=== PATIENT | female | born 1990 | race Caucasian/White ===

== ENCOUNTER 2020-01-30 09:57 | Emergency (ER) | payer OTHER, SELFPAY ==
[2020-01-30 10:09] VITALS: BP 108/61; BP 120/80; PULSE 69; PULSE 85; RESP 16; TEMP 36.6; O2SAT 98; O2SAT 99; BMI 32.8
--- NOTE | 2020-01-30 10:21 | ED_ITS ---
HPI - Extremity Problem General Chief complaint: Extremity Injury, Upper Stated complaint: arm pain Time Seen by Provider: 01/30/20 10:21 Source: patient Mode of arrival: ambulatory Limitations: no limitations History of Present Illness HPI Narrative: 29 y/o female with no medical history presents with right upper arm pain since last night along with intermittent tingling and numbness. She reports falling on her left side about 1 week ago but denies injury to her right arm. She states she was not doing anything in particular when she started to have pain in her upper arm from the middle down to the elbow area. She is able to flex and extend her arm but it is painful to do so. 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 MD Complaint: extremity pain Onset (ago): day(s) (1) Pain Consistency: constant Location: right Severity scale (1-10): 8 Quality: aching Radiation: distal Relieving factors: immobilization and rest Exacerbating factors: range of motion and palpation Associated symptoms: denies other symptoms Related Data Previous Rx's Medication Instructions Recorded ibuprofen 600 mg PO Q8H PRN #30 tab 01/30/20 lidocaine [Lidoderm] 1 patch TOPICAL DAILY #15 ea 01/30/20 Allergies Allergy/AdvReac Type Severity Reaction Status Date / Time methylphenidate Allergy Unknown Swelling Unverified 01/30/20 10:08 [From CONCERTA] nickel [NICKEL] Allergy Unknown HIVES Unverified 11/08/19 19:43 ibuprofen AdvReac Rash Verified 01/30/20 10:08 Review of Systems Review of Systems: Constitutional: No Fever, No Chills Cardiovascular: No Chest Pain, + SOB (when anxious) Respiratory: No Cough, No Sputum Gastrointestinal: No Nausea, No Vomiting Musculoskeletal: + joint pain, + Myalgias Skin: No Skin Lesions, No rash Neuro: + Weakness (due to pain), + Numbness, No Dizziness, No Headache Psych: + Anxiety/Panic Heme/Lymph: No Bruising, No Lymphadenopathy PMFSH Past Medical History Attestation statement: The following information was validated with the patient. Medical History delivery delivered Social History Social History Advance Directives: No Advance Directives Information Provided: No Physical Exam Vital Signs: Vital Signs: Last Vital Signs Temp 97.9 F 01/30/20 10:09 Pulse 69 01/30/20 10:09 Resp 16 01/30/20 10:09 BP 108/61 01/30/20 10:09 Pulse Ox 98 01/30/20 10:09 Body Mass Index 32.8 Appearance: Alert. Oriented X3. No acute distress. HEENT: normal inspection CVS: Normal heart rate and rhythm. Pulses normal. Respiratory: No respiratory distress. Skin: Skin warm and dry. Normal skin color. Normal skin turgor. No rashes. Extremities: right upper extremity with mild swelling of volar side of lower upper arm, normal right shoulder exam, full ROM of elbow with painful flexion and extension, tender bicep insertion site with palpable fullness, no bony tenderness, no deformity. Neuro: Oriented X 3. No motor deficit. No sensory deficit. Course Course Course Narrative: 29 y/o female with right upper arm pain x1 day s/p fall 1 week ago. Tender bicep, question bicep tendonitis. Doubt rupture given she has ROM. Given trauma will check XR's to assess for occult fracture Reevaluation(s) Reevaluation #1: XR negative. Will treat for bicep tendonitis with oral NSAIDS, cold compresses. No role for glucocorticoid injections at this time. She will f/u with Orthopedics if no improvement in 1 week. Stable for discharge. Critical Care Time Critical Care Time Critical Care Time: No Discharge Plan Discharge Clinical Impression: Biceps tendinitis Qualifiers: Laterality: right Qualified Code(s): M75.21 - Bicipital tendinitis, right shoulder Patient Disposition: Home, Self-Care Instructions: Tendinitis (ED) Additional Instructions: Your X-rays today were normal. Your exam and history are consistent with overuse injury known as tendonitis. It is important that you limit use of your elbow so it can rest and heal. Take the prescribed anti-inflammatory medication for the next 1 week. Use ice several times per day. If no improvement in 1 week follow up with Orthopedics. If worsening pain, if you are unable to flex or extend your elbow, or if your symptoms worsen come back to the ER for futher evaluation. Prescriptions: New lidocaine [Lidoderm] 5 % adhesive patch,medicated 1 patch topical DAILY Qty: 15 RF: 0 ibuprofen 600 mg tablet 600 mg PO Q8H PRN (Reason: pain) Qty: 30 RF: 0 Stand Alone Forms: Work/School Release Interventions: ED Discharge Assessment Last Done: 01/30/20 11:55 Discharge Date/Time: 01/30/20 11:55
--- NOTE | 2020-01-30 10:42 | XR_ITS ---
EXAMINATION: RIGHT HUMERUS AND RIGHT ELBOW. CLINICAL INFORMATION: Status post fall. COMPARISON: None TECHNIQUE: 2 views right humerus and 2 views right elbow FINDINGS: Right humerus: There is no visible fracture or bony abnormality. The soft tissues are normal. Right elbow: There is no visible acute fracture, dislocation or subluxation. There is no loose bodies. No bony erosive changes. The soft tissues are normal. XR/XR elbow RT 2V IMPRESSION: Unremarkable right humerus exam. No fracture seen. Unremarkable right elbow exam.
--- NOTE | 2020-01-30 10:42 | XR_ITS ---
EXAMINATION: RIGHT HUMERUS AND RIGHT ELBOW. CLINICAL INFORMATION: Status post fall. COMPARISON: None TECHNIQUE: 2 views right humerus and 2 views right elbow FINDINGS: Right humerus: There is no visible fracture or bony abnormality. The soft tissues are normal. Right elbow: There is no visible acute fracture, dislocation or subluxation. There is no loose bodies. No bony erosive changes. The soft tissues are normal. XR/XR humerus RT IMPRESSION: Unremarkable right humerus exam. No fracture seen. Unremarkable right elbow exam.
== END 2020-01-30 11:55 | disposition home or self-care (01) ==
PROVIDERS: Emergency Provider Emergency Medicine; PCP Internal Medicine
DX: M75.21 Bicipital tendinitis, right shoulder (principal)
CPT/HCPCS: 73060; 73070; 99283

== ENCOUNTER 2020-02-03 14:19 | Emergency (ER) | payer OTHER, SELFPAY ==
[2020-02-03 14:23] VITALS: PULSE 79; RESP 18; TEMP 36.3; O2SAT 99; BMI 32.8
--- NOTE | 2020-02-03 16:07 | US_ITS ---
EXAMINATION: US VENOUS DUPLEX UPPER EXTREMITY, RIGHT CLINICAL INFORMATION: Right upper extremity pain and bruising. Evaluate for a deep vein thrombosis. COMPARISON: None TECHNIQUE: Grayscale and Doppler images of the right upper extremity venous structures were obtained. FINDINGS: The right internal jugular, subclavian, axillary, brachial, diminutive basilic, radial, and ulnar veins are patent and compressible. The right cephalic vein is not well seen. The left subclavian vein appears unremarkable which was imaged for comparison. No abnormal soft tissue mass or fluid collection. US/US venous duplex UE RT IMPRESSION: No right upper extremity deep vein thrombosis.
--- NOTE | 2020-02-03 17:30 | ED.EXTPRO ---
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 and pain developed over the last several days she does lots of lifting and moving during the course of her 12 hour days, but does not recall any specific fall or traumatic injury, she associates it with overuse She has had no fever no chills no joint swelling, the pain is in her upper arm in the biceps area and it radiates into the shoulder and into the forearm she denies any rash Related Data Previous Rx's Medication Instructions Recorded ibuprofen 600 mg PO Q8H PRN #30 tab 01/30/20 lidocaine [Lidoderm] 1 patch TOPICAL DAILY #15 ea 01/30/20 ibuprofen 600 mg PO Q6H PRN #20 tab 02/03/20 Allergies Allergy/AdvReac Type Severity Reaction Status Date / Time methylphenidate Allergy Unknown Swelling Unverified 01/30/20 10:08 [From CONCERTA] nickel [NICKEL] Allergy Unknown HIVES Unverified 11/08/19 19:43 ibuprofen AdvReac Rash Verified 01/30/20 10:08 Review of Systems Review of Systems: Positive for right arm pain There is no fever no chills no chest pain no neck pain no shortness of breath no numbness weakness or paresthesias no rash Yes all other systems are reviewed and are negative [facility] Past Medical History Attestation statement: The following information was validated with the patient. Source: nursing notes reviewed Medical History delivery delivered Social History Social History Advance Directives: No Advance Directives Information Provided: Yes Physical Exam Vital Signs: Vital Signs: Last Vital Signs Temp 97.4 F 02/03/20 14:23 Pulse 79 02/03/20 14:23 Resp 18 02/03/20 14:23 Pulse Ox 99 02/03/20 14:23 Body Mass Index 32.8 General appearance is no acute distressed relaxed cooperative Head is normocephalic atraumatic The neck is supple and nontender respiratory is no acute distress Extremities the right arm has tenderness and some small amount of bruising in the proximal volar bicep area there is tenderness over the entire bicep area there is pain with extension and rotation of the elbow there is a full range of motion in the shoulder, there is no redness or warmth of the skin no obvious swelling, and all is neurovascular intact distal Other extremities are normal Skin no rashes no petechiae Neuro no focal deficit Course Course Course Narrative: X-rays were done and previous visit on 01/29 of the right humerus and right elbow and they were negative As she is having atraumatic pain in the right upper arm she was tested with ultrasound to rule out DVT Case is signed out to physician assistant patel to follow ultrasound results and discharge patient pending results Discharge Plan Discharge Clinical Impression: Muscle strain of right upper arm Qualifiers: Encounter type: sequela Qualified Code(s): S46.911S - Strain of unspecified muscle, fascia and tendon at shoulder and upper arm level, right arm, sequela Patient Disposition: Home, Self-Care Additional Instructions: Ultrasound did not show a blood clot Your pain may be from repetitive work on her job so follow with [facility] for work related injury You can also follow with orthopedist for further evaluation Return any time any worse condition or any concerns Prescriptions: New ibuprofen 600 mg tablet 600 mg PO Q6H PRN (Reason: pain) Qty: 20 RF: 0 No Action lidocaine [Lidoderm] 5 % adhesive patch,medicated 1 patch topical DAILY Qty: 15 RF: 0 ibuprofen 600 mg tablet 600 mg PO Q8H PRN (Reason: pain) Qty: 30 RF: 0 Referrals: [facility] [Provider Group] - 2 days (Right arm pain associated with repetitive work activity) Lars Stephenson MD [Physician] - 2 days (Right arm pain) Stand Alone Forms: Work/School Release
[2020-02-03 18:44] VITALS: BP 115/74; PULSE 64; RESP 18; TEMP 36.4; O2SAT 99
== END 2020-02-03 19:25 | disposition home or self-care (01) ==
PROVIDERS: Emergency Provider Internal Medicine
DX: S46.911A Strain of unspecified muscle, fascia and tendon at shoulder and upper arm level, right arm, initial encounter (principal); M79.601 Pain in right arm; R60.0 Localized edema; X50.0XXA Overexertion from strenuous movement or load, initial encounter; Y93.9 Activity, unspecified; Y92.9 Unspecified place or not applicable; Y99.9 Unspecified external cause status; Z79.899 Other long term (current) drug therapy
CPT/HCPCS: 93971; 99284

== ENCOUNTER 2020-03-10 08:43 | Outpatient (REF) | payer OTHER, SELFPAY ==
[2020-03-11 09:31] LABS: BV Int Neg Control Negative (Negative); BV Int Pos Control Positive (Positive)
== END 2020-03-10 08:44 | disposition home or self-care (01) ==
LOC: HO.LAB 08:43
PROVIDERS: PCP Nurse Practitioner; Visit Provider Advanced Practice Midwife
DX: N89.8 Other specified noninflammatory disorders of vagina (principal); N92.6 Irregular menstruation, unspecified; Z32.02 Encounter for pregnancy test, result negative
CPT/HCPCS: 81025; 87255; 87480; 87510; 87660; 99212

== ENCOUNTER 2020-03-23 23:40 | Emergency (ER) | payer OTHER, SELFPAY | END 2020-03-24 00:43 | disposition left against medical advice (07) | PROVIDERS: Emergency Provider Emergency Medicine | DX: R10.9 Unspecified abdominal pain (principal) ==

== ENCOUNTER 2020-05-25 20:59 | Emergency (ER) | payer OTHER, SELFPAY ==
[2020-05-25 21:14] VITALS: BP 134/74; PULSE 72; RESP 18; TEMP 36.7; O2SAT 100; BMI 32.3
== END 2020-05-25 21:36 | disposition left against medical advice (07) ==
PROVIDERS: Emergency Provider Emergency Medicine
DX: R20.2 Paresthesia of skin (principal); T78.49XA Other allergy, initial encounter; X58.XXXA Exposure to other specified factors, initial encounter
CPT/HCPCS: 99281; 99282

== ENCOUNTER 2020-05-27 07:42 | Emergency (ER) | payer OTHER, SELFPAY ==
[2020-05-27 07:57] VITALS: BP 128/52; PULSE 69; RESP 14; TEMP 36.5; O2SAT 98; BMI 30.4
--- NOTE | 2020-05-27 08:02 | ED.ALLEREA ---
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 MD complaint: facial swelling Onset (ago): day(s) (2) Exposure: unknown Symptoms: facial swelling Severity: mild Treatment prior to arrival: none Previous Allergic Reaction History: other (hx of bee reaction) Related Data Previous Rx's Medication Instructions Recorded ibuprofen 600 mg PO Q8H PRN #30 tab 01/30/20 lidocaine [Lidoderm] 1 patch TOPICAL DAILY #15 ea 01/30/20 ibuprofen 600 mg PO Q6H PRN #20 tab 02/03/20 vitamin with calcium 1 tab PO BEDTIME #30 tab 03/10/20 no.72-iron 27 mg-folic acid 1 mg tablet metronidazole 500 mg tablet 500 mg PO BID 7 Days #14 tab 03/21/20 metronidazole 0.75 % vaginal gel 1 appful VAGINAL BEDTIME 5 Days 03/25/20 #70 g prednisone 40 mg PO DAILY 5 Days #10 tab 05/27/20 Allergies Allergy/AdvReac Type Severity Reaction Status Date / Time methylphenidate Allergy Unknown Swelling Verified 03/10/20 08:56 [From CONCERTA] nickel [NICKEL] Allergy Unknown HIVES Verified 03/10/20 08:56 ibuprofen AdvReac Rash Verified 03/10/20 08:56 Review of Systems Review of Systems: Constitutional : No Fever, No Chills ENT/Mouth : positive oral swelling, No Hoarseness, No Swallowing Difficulty Eyes: No Eye Pain, No Swelling, No Redness Cardiovascular : No Chest Pain, No SOB Respiratory : No Cough, No Sputum, No Wheezing, No Smoke Exposure, No Dyspnea Gastrointestinal : No Nausea, No Vomiting, No Diarrhea, No abdominal Pain Genitourinary : No Dysuria, No Urinary Frequency, No Hematuria Musculoskeletal : No joint pain, No Myalgias, No Joint Swelling Skin : No Skin Lesions, positive rash Neuro : No Weakness, No Numbness, No Headache Psych : No Anxiety/Panic, No Depression Heme/Lymph: No Bruising, No Lymphadenopathy Endocrine : No Polyuria, No Polydipsia All other systems reviewed and are negative PMFSH Past Medical History Attestation statement: The following information was validated with the patient. Medical History Asthma delivery delivered Social History Social History Alcohol intake: never Smoking Status: Never smoker Sexual orientation: Straight/Heterosexual Physical Exam Vital Signs: Appearance: Alert. Oriented X3. No acute distress. Eyes: Pupils equal, round and reactive to light. ENT: Pharynx normal. lips bilateral mild swelling with some cracking noted in corners of mouth - no cellulitis, no vesicles, no intra oral swelling Neck: Normal inspection. Neck supple. CVS: Normal heart rate and rhythm. Pulses normal. Respiratory: No respiratory distress. Breath sounds normal. Abdomen: Soft and nontender. Skin: Skin warm and dry. Normal skin color. Normal skin turgor. Extremities: No lower extremity edema. No calf ttp Neuro: Oriented X 3. No motor deficit. No sensory deficit. MDM - Allergic Reaction MDM Narrative Medical decision making narrative: 30 yo female with mild angioedema here with lip swelling no intra oral swelling no resp issues could be due to bee venom mask - at this time will start on steroids and also discussed possible zinc deficiency as cause, given infection precautions to return. PO prednisone ordered Discharge Plan Discharge Clinical Impression: Angioedema Qualifiers: Encounter type: initial encounter Qualified Code(s): T78.3XXA - Angioneurotic edema, initial encounter Patient Disposition: Home, Self-Care Instructions: Angioedema (ED) Additional Instructions: please try ZINC vitamins as well to see if this improves your rash apply vaseline liberally to keep lips from splitting Prescriptions: New prednisone 20 mg tablet 40 mg PO DAILY 5 Days Qty: 10 RF: 0 No Action metronidazole [Flagyl] 500 mg tablet 500 mg PO BID 7 Days Qty: 14 RF: 0 metronidazole [Metrogel Vaginal] 0.75 % gel 1 appful vaginal BEDTIME 5 Days Qty: 70 RF: 0 lidocaine [Lidoderm] 5 % adhesive patch,medicated 1 patch topical DAILY Qty: 15 RF: 0 ibuprofen 600 mg tablet 600 mg PO Q8H PRN (Reason: pain) Qty: 30 RF: 0 ibuprofen 600 mg tablet 600 mg PO Q6H PRN (Reason: pain) Qty: 20 RF: 0 Vitamin Plus Low Iron 27 mg iron- 1 mg tablet 1 tab PO BEDTIME Qty: 30 RF: 11 Stand Alone Forms: Work/School Release
== END 2020-05-27 08:21 | disposition home or self-care (01) ==
LOC: HO.ED 08:09
PROVIDERS: Emergency Provider Emergency Medicine; PCP Internal Medicine
DX: T78.49XA Other allergy, initial encounter (principal); T78.3XXA Angioneurotic edema, initial encounter; X58.XXXA Exposure to other specified factors, initial encounter
CPT/HCPCS: 99283

== ENCOUNTER 2020-06-26 07:28 | Emergency (ER) | payer OTHER, SELFPAY ==
--- NOTE | ~2020-06-26 | CT_ITS ---
EXAMINATION: CT HEAD WITHOUT CONTRAST CLINICAL INFORMATION: Headache COMPARISON: None TECHNIQUE: Contiguous axial imaging was performed from the skull base to vertex without intravenous administration of contrast. This CT examination was performed using dose optimization techniques as appropriate, variously including the following: *Automated exposure control *Adjustment of mA and/or kV according to patient size (this includes techniques or standardized protocols for targeted exams where dose is matched to indication/reason for exam; i.e. extremities or head) *Use of iterative reconstruction technique DLP: 648 mGy-cm FINDINGS: There is no evidence of acute intracranial hemorrhage or territorial infarction. No abnormal mass effect or midline shift is seen. Rangel to white matter differentiation is well preserved. No extra-axial fluid collections are identified. The ventricles are normal in size. There is no abnormal attenuation within the brain parenchyma. The osseous structures and soft tissues are normal. The mastoid air cells and visualized portions of the paranasal sinuses are well aerated. CT/CT head/brain wo con IMPRESSION: No acute intracranial process seen.
--- NOTE | 2020-06-26 07:44 | ED_ITS ---
HPI - Headache General Chief Complaint: Headache Stated Complaint: Migraine Time Seen by Provider: 06/26/20 07:44 Source: patient Mode of arrival: ambulatory Limitations: no limitations History of Present Illness MD elicited complaint: headache Onset (ago): week(s) (3) Onset description: gradually Location: occipital Severity: moderate Quality & Timing: aching and throbbing Exacerbating factors: movement of head/neck Relieving factors: nothing Context: occurred at rest Associated symptoms: none Treatments prior to arrival: acetaminophen Related Data Previous Rx's Medication Instructions Recorded ibuprofen 600 mg PO Q8H PRN #30 tab 01/30/20 lidocaine [Lidoderm] 1 patch TOPICAL DAILY #15 ea 01/30/20 ibuprofen 600 mg PO Q6H PRN #20 tab 02/03/20 vitamin with calcium 1 tab PO BEDTIME #30 tab 03/10/20 no.72-iron 27 mg-folic acid 1 mg tablet metronidazole 500 mg tablet 500 mg PO BID 7 Days #14 tab 03/21/20 metronidazole 0.75 % vaginal gel 1 appful VAGINAL BEDTIME 5 Days 03/25/20 #70 g prednisone 40 mg PO DAILY 5 Days #10 tab 05/27/20 [id number]-[id number] 1 tab PO Q6H PRN #20 tab 06/26/20 cyclobenzaprine 10 mg PO TID PRN #14 tab 06/26/20 Allergies Allergy/AdvReac Type Severity Reaction Status Date / Time methylphenidate Allergy Unknown Swelling Verified 03/10/20 08:56 [From CONCERTA] nickel [NICKEL] Allergy Unknown HIVES Verified 03/10/20 08:56 ibuprofen AdvReac Rash Verified 03/10/20 08:56 Review of Systems Review of Systems: Constitutional : No Fever, No Chills, No Fatigue ENT/Mouth : No sore throat, No Rhinorrhea Eyes: No Eye Pain, No Swelling, No Redness Cardiovascular : No Chest Pain, No SOB, No Dyspnea on Exertion Respiratory : No Cough, No Sputum Gastrointestinal : No Nausea, No Vomiting, No Diarrhea, No abdominal Pain Genitourinary : No Dysuria, No Urinary Frequency, No Hematuria, Musculoskeletal : No joint pain, No Myalgias, No Joint Swelling Skin : No Skin Lesions, No rash Neuro : No Weakness, No Numbness, No Dizziness, positive Headache Psych : No Anxiety/Panic, No Depression Heme/Lymph: No Bruising, No Bleeding,No Lymphadenopathy Endocrine : No Polyuria, No Polydipsia All other systems reviewed and are negative [facility] Past Medical History Attestation statement: The following information was validated with the patient. Medical History Asthma delivery delivered Social History Social History Alcohol intake: never Smoking Status: Never smoker Advance Directives: No Advance Directives Information Provided: No Patient : No Sexual orientation: Straight/Heterosexual Physical Exam Vital Signs: Vital Signs: Last Vital Signs Temp 98.4 F 06/26/20 08:48 Pulse 49 L 06/26/20 08:48 Resp 16 06/26/20 08:48 BP 118/79 06/26/20 08:48 Pulse Ox 98 06/26/20 08:48 Body Mass Index 29.2 Appearance: Alert. Oriented X3. No acute distress. Eyes: Pupils equal, round and reactive to light. ENT: Pharynx normal. occipital ttp but no lymphadenopathy or mass felt Neck: Normal inspection. Neck supple. CVS: Normal heart rate and rhythm. Pulses normal. Respiratory: No respiratory distress. Breath sounds normal. Abdomen: Soft and nontender. Skin: Skin warm and dry. Normal skin color. Normal skin turgor. Extremities: No lower extremity edema. No calf ttp Neuro: Oriented X 3. No motor deficit. No sensory deficit. Course Course Course Narrative: feels better, no acute findings, stable for DC MDM - Headache MDM Narrative Medical decision making narrative: 30 yo female no AC therapy here with headaches x 3 weeks no focal deficits no fevers no focal deficits doubt SAH or [employer] infection likely tension vs migraine, CT head for mass ordered, IVF, IV reglan/benadryl and magnesium ordered, dispo per results and improvement Lab Data Result diagrams: 06/26/20 08:07 06/26/20 08:07 Labs: Lab Results 06/26/20 06/26/20 06/26/20 Range/Units 08:07 08:07 08:07 WBC 5.7 (4.8-10.8) X10*3/uL RBC 4.02 L (4.20-5.50) X10*6/uL Hgb 11.8 L (12.0-16.0) g/dl Hct 36.3 L (37-47) % MCV 90.3 (80-98) fL MCH 29.4 (27.0-33.0) pg MCHC 32.5 (31.0-35.0) g/dl RDW 13.0 (11.0-16.0) % Plt Count 271 (160-400) X10*3/uL MPV 9.5 (9.4-12.3) fL Immature Gran % (Auto) 0.2 (0.0-0.4) % Neut % (Auto) 56.1 (45-73) % Lymph % (Auto) 32.5 (20-40) % [place] % (Auto) 8.3 (2-11) % Eos % (Auto) 2.5 (0-4) % Baso % (Auto) 0.4 (0-2) % Lymph # (Auto) 1.8 (1.2-4.9) X10*3/uL [place] # (Auto) 0.5 (0.1-1.2) X10*3/uL Eos # (Auto) 0.1 (0.0-0.4) X10*3/uL Baso # (Auto) 0.0 (0.0-0.2) X10*3/uL Abs Immat Gran (auto) 0.01 (0.00-0.03) X10*3/uL Absolute Neuts (auto) 3.2 (2.0-8.3) X10*3/uL Absolute Nucleated RBC 0.000 (0.0-0.012) X10*3/uL Nucleated RBC % (auto) 0.0 (0.0-0.2) /100WBC Sodium 139 (135-145) mmol/L Potassium 4.2 (3.3-5.1) mmol/L Chloride 108 (96-108) mmol/L Carbon Dioxide 22 (22-29) mmol/L Anion Gap 13 (12-20) BUN 16 (9-16) mg/dL Creatinine 0.70 (0.5-1.4) mg/dL Estim Creat Clear Calc 132.7 Estimated GFR > 60 Random Glucose 129 H (60-115) mg/dL Calcium 9.0 (8.4-10.2) mg/dL Urine Test NEGATIVE (NEGATIVE) Discharge Plan Discharge Clinical Impression: Tension headache Patient Disposition: Home, Self-Care Instructions: Tension Headache (ED) Additional Instructions: return to ED for any worsening symptoms or concerns Prescriptions: New cyclobenzaprine 10 mg tablet 10 mg PO TID PRN (Reason: muscle spasm) Qty: 14 RF: 0 [id number]-[id number]-snxz 50-325-40 mg tablet 1 tab PO Q6H PRN (Reason: pain) Qty: 20 RF: 0 No Action metronidazole [Flagyl] 500 mg tablet 500 mg PO BID 7 Days Qty: 14 RF: 0 metronidazole [Metrogel Vaginal] 0.75 % gel 1 appful vaginal BEDTIME 5 Days Qty: 70 RF: 0 lidocaine [Lidoderm] 5 % adhesive patch,medicated 1 patch topical DAILY Qty: 15 RF: 0 ibuprofen 600 mg tablet 600 mg PO Q8H PRN (Reason: pain) Qty: 30 RF: 0 ibuprofen 600 mg tablet 600 mg PO Q6H PRN (Reason: pain) Qty: 20 RF: 0 prednisone 20 mg tablet 40 mg PO DAILY 5 Days Qty: 10 RF: 0 Vitamin Plus Low Iron 27 mg iron- 1 mg tablet 1 tab PO BEDTIME Qty: 30 RF: 11 Stand Alone Forms: Work/School Release
[2020-06-26 07:53] VITALS: BP 120/74; PULSE 59; RESP 18; TEMP 36.8; O2SAT 98; BMI 29.2
[2020-06-26 08:27] LABS: MANUAL DIFF FLAG NO
[2020-06-26 08:29] LABS: Basophils Percent Auto 0.4 % (0-2); Eosinophils Absolute Auto 0.1 X10*3/uL (0.0-0.4); Eosinophils Percent Auto 2.5 % (0-4); Hematocrit 36.3 % (37-47); Hemoglobin 11.8 g/dl (12.0-16.0); Imm Gran Abs Auto 0.01 X10*3/uL (0.00-0.03); Imm Gran Pct Auto 0.2 % (0.0-0.4); Lymphocytes Absolute Auto 1.8 X10*3/uL (1.2-4.9); Lymphocytes Percent Auto 32.5 % (20-40); Mean Corpuscular HGB Conc 32.5 g/dl (31.0-35.0); Mean Corpuscular Hemoglobin 29.4 pg (27.0-33.0); Mean Corpuscular Volume 90.3 fL (80-98); Mean Platelet Volume 9.5 fL (9.4-12.3); Monocytes Absolute Auto 0.5 X10*3/uL (0.1-1.2); Monocytes Percent Auto 8.3 % (2-11); Neutrophils Absolute Auto 3.2 X10*3/uL (2.0-8.3); Neutrophils Percent Auto 56.1 % (45-73); Platelet Count 271 X10*3/uL (160-400); Red Blood Count 4.02 X10*6/uL (4.20-5.50); White Blood Count 5.7 X10*3/uL (4.8-10.8)
[2020-06-26] MEDS: Metoclopramide HCl 10 MG/2 ML VIAL 5 MG IVPUSH (08:29)
[2020-06-26] MEDS: Magnesium Sulfate/H2O 2 GM/50 ML PIGGYBACK IV (08:29)
[2020-06-26] MEDS: diphenhydrAMINE HCL 50 MG/ML VIAL 25 MG IVPUSH (08:29)
[2020-06-26] MEDS: 0.9 % Sodium Chloride 1,000 ML 999 ML IVCONT (08:29)
[2020-06-26 08:37] LABS: UPreg QC Valid YES; Urine Pregnancy NEGATIVE (NEGATIVE)
[2020-06-26 08:48] VITALS: BP 118/79; PULSE 49; RESP 16; TEMP 36.9; O2SAT 98
[2020-06-26 08:58] LABS: Anion Gap 13 (12-20); Blood Urea Nitrogen 16 mg/dL (9-16); Carbon Dioxide 22 mmol/L (22-29); Chloride 108 mmol/L (96-108); Creatinine Clr Calc Pharmacy 132.7; Estimated Glomerular Filt Rate > 60; Glucose Random 129 mg/dL (60-115); Potassium 4.2 mmol/L (3.3-5.1); Sodium 139 mmol/L (135-145)
== END 2020-06-26 10:21 | disposition home or self-care (01) ==
PROVIDERS: Emergency Provider Emergency Medicine; PCP Internal Medicine
DX: G44.209 Tension-type headache, unspecified, not intractable (principal)
CPT/HCPCS: 36415; 70450; 80048; 81025; 85025; 96361; 96365; 96375; 99283; 99284; J1200; J2765; J3475

== ENCOUNTER 2020-09-07 17:01 | Emergency (ER) | payer OTHER, SELFPAY ==
[2020-09-07 17:16] VITALS: BP 117/67; BP 150/90; PULSE 105; PULSE 71; RESP 16; TEMP 36.9; O2SAT 97; O2SAT 98; BMI 31.3
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
[2020-09-07] MEDS: Acetaminophen 325 MG TABLET 650 MG PO (17:40)
[2020-09-07 17:42] LABS: UPreg QC Valid YES; Urine Pregnancy NEGATIVE (NEGATIVE)
--- NOTE | 2020-09-07 18:29 | PC.NURSE ---
PT IS NOW DECLINING WAITING FOR CT SCAN WANT TO GO HOME AND BE WITH [facility]. PT A+OX 3 NEURO INTACTED PT STATES SHE DOES NOT FEEL NAUSEA ANY MORE AND IS HUNGRY AND TIRED AND WANT TO GO HOME. JEAN CLAUDE MCCORMICK AWARE PT SIGNING OUT AMA.
== END 2020-09-07 18:55 | disposition left against medical advice (07) ==
PROVIDERS: Nurse Practitioner Family; Emergency Provider Internal Medicine; PCP Internal Medicine
DX: S09.90XA Unspecified injury of head, initial encounter (principal); G44.309 Post-traumatic headache, unspecified, not intractable; Y04.8XXA Assault by other bodily force, initial encounter; Y93.9 Activity, unspecified; Y92.009 Unspecified place in unspecified non-institutional (private) residence as the place of occurrence of the external cause; Y99.9 Unspecified external cause status; Z79.899 Other long term (current) drug therapy
CPT/HCPCS: 81025; 99284

== ENCOUNTER 2020-10-01 09:34 | Outpatient (REF) | payer OTHER, SELFPAY ==
[2020-10-01 14:27] LABS: CT PCR NOT DETECTED (Not Detect.); NG PCR NOT DETECTED (Not Detect.)
[2020-10-02 09:26] LABS: BV Int Neg Control Negative (Negative); BV Int Pos Control Positive (Positive)
== END 2020-10-01 09:35 | disposition home or self-care (01) ==
LOC: HO.LAB 09:34
PROVIDERS: PCP Internal Medicine; Visit Provider Advanced Practice Midwife
DX: Z31.69 Encounter for other general counseling and advice on procreation (principal); R10.2 Pelvic and perineal pain; Z20.2 Contact with and (suspected) exposure to infections with a predominantly sexual mode of transmission
CPT/HCPCS: 81003; 87480; 87491; 87510; 87591; 87660; 99212

== ENCOUNTER 2020-10-28 11:21 | Outpatient (REF) | payer OTHER, SELFPAY | END 2020-10-28 11:22 | disposition home or self-care (01) | LOC: HO.LAB 11:21 | PROVIDERS: PCP Internal Medicine; Visit Provider Internal Medicine | DX: Z20.822 Contact with and (suspected) exposure to COVID-19 (principal) | CPT/HCPCS: C9803; U0003; U0005 ==

== ENCOUNTER 2020-11-28 10:50 | Outpatient (REF) | payer OTHER, SELFPAY | END 2020-11-28 10:51 | disposition home or self-care (01) | LOC: HO.LAB 10:50 | PROVIDERS: PCP Internal Medicine; Visit Provider Internal Medicine | DX: Z20.822 Contact with and (suspected) exposure to COVID-19 (principal) | CPT/HCPCS: C9803; U0003; U0005 ==

== ENCOUNTER 2020-12-20 09:17 | Emergency (ER) | payer OTHER, SELFPAY ==
--- NOTE | 2020-12-20 09:27 | ED.EYEPROB ---
HPI - Eye Problem General Stated complaint: R EYE ISSUE PAIN ITCHY Time Seen by Provider: 12/20/20 09:26 Source: patient Mode of arrival: ambulatory Limitations: no limitations History of Present Illness chief complaint: eye pain and eye redness Onset (ago): week(s) (1) Onset description: gradual Duration: progressively worsening Location: right eye Eye Symptoms: redness, pain and other (lid swelling) Place: home Mechanism: none Severity: moderate If Pain, Quality: aching Associated symptoms: none Treatments Prior to Arrival: other (warm compress) Related Data Previous Rx's Medication Instructions Recorded ibuprofen 600 mg tablet 600 mg PO Q8H PRN #30 tab 01/30/20 lidocaine 5 % topical patch 1 patch TOPICAL DAILY #15 ea 01/30/20 (Lidoderm) ibuprofen 600 mg tablet 600 mg PO Q6H PRN #20 tab 02/03/20 vitamin with calcium 1 tab PO BEDTIME #30 tab 03/10/20 no.72-iron 27 mg-folic acid 1 mg tablet ( Vitamins Plus Low Iron) metronidazole 500 mg tablet 500 mg PO BID 7 Days #14 tab 03/21/20 (Flagyl) metronidazole 0.75 % vaginal gel 1 appful VAGINAL BEDTIME 5 Days 03/25/20 (Metrogel Vaginal) #70 g prednisone 20 mg tablet 40 mg PO DAILY 5 Days #10 tab 05/27/20 bsbslhfzei-dypfdwoupjaem-iizrlkih 1 tab PO Q6H PRN #20 tab 06/26/20 50 mg-325 mg-40 mg tablet cyclobenzaprine 10 mg tablet 10 mg PO TID PRN #14 tab 06/26/20 cephalexin 500 mg capsule 500 mg PO BID 7 Days #14 cap 12/20/20 erythromycin 5 mg/gram (0.5 %) eye 0.5 inch OPHTHALMIC (EYE) BID 7 12/20/20 ointment Days #3.5 g Allergies Allergy/AdvReac Type Severity Reaction Status Date / Time methylphenidate Allergy Unknown Swelling Verified 10/01/20 09:53 [From [facility]] nickel [NICKEL] Allergy Unknown HIVES Verified 10/01/20 09:53 ibuprofen AdvReac Rash Verified 10/01/20 09:53 Review of Systems Review of Systems: Constitutional : No Fever, No Chills ENT/Mouth : No sore throat, No Rhinorrhea Eyes: pos Eye Pain, pos Swelling, pos Redness Cardiovascular : No Chest Pain, No SOB Respiratory : No Cough, No Sputum, No Wheezing Gastrointestinal : No Nausea, No Vomiting Skin : No Skin Lesions, No rash Neuro : No Weakness, No Numbness, No Dizziness, No Headache [facility], [facility] Past Medical History Attestation statement: The following information was validated with the patient. Medical History Asthma delivery delivered Social History Social History Alcohol intake: never Advance Directives: No Advance Directives Information Provided: No Patient : No Sexual orientation: Straight/Heterosexual Physical Exam Vital Signs: Appearance: Alert. Oriented X3. No acute distress. Eyes: Pupils equal, round and reactive to light. R eye upper lid mild erythema and swelling, normal conjunctiva and pupil normal vision ENT: Pharynx normal. Neck: Normal inspection. Neck supple. CVS: Normal heart rate and rhythm. Pulses normal. Respiratory: No respiratory distress. Abdomen: Soft and nontender. Skin: Skin warm and dry. Normal skin color. Extremities: No lower extremity edema. Neuro: Oriented X 3. No motor deficit. No sensory deficit. MDM - Eye Problem MDM Narrative Medical decision making narrative: 30 yo female with hx of migraines does not wear contacts - here with R eye blepharitis - vision intact, pupil normal, EOMi doubt orbital cellulitis - PO cephalexin and erythromycin ointment - symptoms x 1 week not responding to warm compress Discharge Plan Discharge Clinical Impression: Blepharitis Qualifiers: Blepharitis type: unspecified type Laterality: right Eyelid: upper Qualified Code(s): H01.001 - Unspecified blepharitis right upper eyelid Patient Disposition: Home, Self-Care Instructions: Blepharitis (ED) Additional Instructions: return to ED for any worsening symptoms or concerns Prescriptions: New cephalexin 500 mg capsule 500 mg PO BID 7 Days Qty: 14 RF: 0 erythromycin 5 mg/gram (0.5 %) ointment 0.5 inch ophthalmic (eye) BID 7 Days Qty: 3.5 RF: 0 No Action metronidazole [Flagyl] 500 mg tablet 500 mg PO BID 7 Days Qty: 14 RF: 0 metronidazole [Metrogel Vaginal] 0.75 % gel 1 appful vaginal BEDTIME 5 Days Qty: 70 RF: 0 lidocaine [Lidoderm] 5 % adhesive patch,medicated 1 patch topical DAILY Qty: 15 RF: 0 ibuprofen 600 mg tablet 600 mg PO Q8H PRN (Reason: pain) Qty: 30 RF: 0 ibuprofen 600 mg tablet 600 mg PO Q6H PRN (Reason: pain) Qty: 20 RF: 0 prednisone 20 mg tablet 40 mg PO DAILY 5 Days Qty: 10 RF: 0 cyclobenzaprine 10 mg tablet 10 mg PO TID PRN (Reason: muscle spasm) Qty: 14 RF: 0 zojplndsia-kbalupmbdckli-ieng 50-325-40 mg tablet 1 tab PO Q6H PRN (Reason: pain) Qty: 20 RF: 0 Vitamin Plus Low Iron 27 mg iron- 1 mg tablet 1 tab PO BEDTIME Qty: 30 RF: 11 Referrals: Physician,Unknown J [Primary Care Provider] - 2 days (if not better)
[2020-12-20 09:31] VITALS: BP 134/84; PULSE 85; RESP 18; TEMP 36.2; O2SAT 96; BMI 29.7
== END 2020-12-20 09:47 | disposition home or self-care (01) ==
PROVIDERS: Emergency Provider Emergency Medicine
DX: H01.001 Unspecified blepharitis right upper eyelid (principal); Z79.899 Other long term (current) drug therapy
CPT/HCPCS: 99283

== ENCOUNTER 2021-03-03 13:34 | Emergency (ER) | payer OTHER, SELFPAY ==
--- NOTE | ~2021-03-03 | CT_ITS ---
EXAMINATION: CT BRAIN AND CT CERVICAL SPINE WITHOUT CONTRAST. CLINICAL INFORMATION: Nasal trauma COMPARISON: None TECHNIQUE: 5 mm thin axial and reformatted 2 mm thin sagittal coronal images of brain were obtained without contrast. Axial 3 mm thin and reformatted 1.5 mm thin sagittal coronal images of facial bones were obtained. DLP 1040 FINDINGS: BRAIN: There is no acute intra-axial, extra-axial bleed, masses, collection midline shift. There is no acute infarction evolution. There is no edema. The lateral ventricles are symmetrical in size and configuration without enlargement. The forrest to white matter difference is maintained normal. Bone windows reveal no calvarial abnormality. There is no scalp soft tissue abnormality. Bilateral paranasal sinuses and mastoid air cells are well-aerated. FACIAL BONES: The paranasal sinuses are well-aerated and clear. The bony sinus mirza are intact. There is mild deformity of left lamina papyracea likely old injury. No acute fracture involving the lamina papyracea.. The cribriform plate is intact. Bilateral bony orbits are intact. Bilateral optic globes, optic nerve and the extraocular muscles are symmetrical. There is a minimally displaced bilateral nasal bone fractures with minimal soft tissue swelling left side. Rest of the maxillofacial bones, mandible and bilateral TM joints are intact. The mastoid sinuses are clear. There is normal patency of nasal cavity and nasopharyngeal airway. There is bar bullosa of bilateral middle turbinates. CT/CT facial bones wo con IMPRESSION: Bilateral nasal bone fractures. Deformity of left lamina papyracea likely old injury. No acute fracture involving maxillofacial or mandibular bone. There is no acute intracranial process.
--- NOTE | ~2021-03-03 | CT_ITS ---
EXAMINATION: CT BRAIN AND CT CERVICAL SPINE WITHOUT CONTRAST. CLINICAL INFORMATION: Nasal trauma COMPARISON: None TECHNIQUE: 5 mm thin axial and reformatted 2 mm thin sagittal coronal images of brain were obtained without contrast. Axial 3 mm thin and reformatted 1.5 mm thin sagittal coronal images of facial bones were obtained. DLP 1040 FINDINGS: BRAIN: There is no acute intra-axial, extra-axial bleed, masses, collection midline shift. There is no acute infarction evolution. There is no edema. The lateral ventricles are symmetrical in size and configuration without enlargement. The forrest to white matter difference is maintained normal. Bone windows reveal no calvarial abnormality. There is no scalp soft tissue abnormality. Bilateral paranasal sinuses and mastoid air cells are well-aerated. FACIAL BONES: The paranasal sinuses are well-aerated and clear. The bony sinus mirza are intact. There is mild deformity of left lamina papyracea likely old injury. No acute fracture involving the lamina papyracea.. The cribriform plate is intact. Bilateral bony orbits are intact. Bilateral optic globes, optic nerve and the extraocular muscles are symmetrical. There is a minimally displaced bilateral nasal bone fractures with minimal soft tissue swelling left side. Rest of the maxillofacial bones, mandible and bilateral TM joints are intact. The mastoid sinuses are clear. There is normal patency of nasal cavity and nasopharyngeal airway. There is bar bullosa of bilateral middle turbinates. CT/CT head/brain wo con IMPRESSION: Bilateral nasal bone fractures. Deformity of left lamina papyracea likely old injury. No acute fracture involving maxillofacial or mandibular bone. There is no acute intracranial process.
[2021-03-03 14:29] VITALS: BP 118/72; BP 132/62; PULSE 64; PULSE 86; RESP 18; TEMP 35.9; O2SAT 98; BMI 31.3
[2021-03-03] MEDS: Acetaminophen 325 MG TABLET 650 MG PO (14:38)
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
[2021-03-03 14:59] LABS: UPreg QC Valid YES; Urine Pregnancy NEGATIVE (NEGATIVE)
== END 2021-03-03 16:36 | disposition home or self-care (01) ==
PROVIDERS: Emergency Provider Emergency Medicine; PCP Internal Medicine
DX: S02.2XXA Fracture of nasal bones, initial encounter for closed fracture (principal); G44.309 Post-traumatic headache, unspecified, not intractable; Y04.8XXA Assault by other bodily force, initial encounter; Y93.9 Activity, unspecified; Y92.9 Unspecified place or not applicable; Y99.9 Unspecified external cause status; Z79.899 Other long term (current) drug therapy
CPT/HCPCS: 70450; 70486; 81025; 99284

== ENCOUNTER 2021-03-09 16:42 | Emergency (ER) | payer OTHER, SELFPAY ==
[2021-03-09 16:57] VITALS: BP 118/70; PULSE 79
== END 2021-03-09 21:45 | disposition left against medical advice (07) ==
PROVIDERS: Emergency Provider Emergency Medicine
DX: Z20.822 Contact with and (suspected) exposure to COVID-19 (principal)
CPT/HCPCS: 99281

== ENCOUNTER → 2021-03-10 15:21 | Outpatient (BNVA) | payer OTHER, SELFPAY | PROVIDERS: Visit Provider Advanced Practice Midwife ==

== ENCOUNTER 2021-03-12 11:10 | Emergency (ER) | payer OTHER, SELFPAY ==
--- NOTE | ~2021-03-12 | XR_ITS ---
EXAMINATION: XR CHEST CLINICAL INFORMATION: Shortness of breath and Covid positive COMPARISON: None TECHNIQUE: AP portable view of the chest was obtained. FINDINGS: No significant abnormality is noted involving the heart, lungs, mediastinum, bony thorax or soft tissues. XR/XR chest 1V IMPRESSION: No acute disease.
[2021-03-12 11:16] VITALS: BP 130/60; BP 144/85; PULSE 84; PULSE 90; RESP 16; O2SAT 100; O2SAT 98; BMI 30.9
[2021-03-12 11:35] VITALS: BP 125/82; PULSE 78; RESP 16; TEMP 37; O2SAT 97
--- NOTE | 2021-03-12 12:01 | ED_ITS ---
HPI - SOB/Dyspnea General Chief Complaint: Dyspnea Stated Complaint: SOB X 2 DAYS, +COVID Time Seen by Provider: 03/12/21 11:40 Source: patient Mode of arrival: EMS Limitations: no limitations History of Present Illness HPI Narrative: Patient is a 30-year-old female with a history of asthma. Patient developed nonproductive cough, shortness of breath, and headache 5 days ago. She had an outpatient COVID-19 test 3 days ago which resulted as positive. She has received a single dose of [place] COVID-19 vaccination in November 2020. Shortness of breath is exacerbated with ambulation and coughing, She is prescribed albuterol inhaler which she reports makes her breathing worse, she feels that she feels like it makes her breathe faster does not improve her cough or shortness of breath. Her significant other was concerned that she was difficult to wake up this morning, therefore he called EMS. Denies any known history of sleep apnea, denies waking in the middle of the night gasping for air, denies daytime drowsiness. In addition, patient reports that she may possibly be , last menstrual period February 11, 2021, she is actively trying to become . . Denies dizziness, lightheadedness, vision changes, chest pain, palpitations, hemoptysis, swelling of the lower extremity, recent extended travel, not taking oral contraceptives, denies personal history of cancer MD elicited complaint: shortness of breath and cough Pertinent past history: asthma Onset (ago): day(s) Context: recent illness Timing: intermittent Severity: mild Exacerbating factors: movement and coughing Relieving factors: nothing Known history of: asthma Treatment prior to arrival: bronchodilator Related Data Home oxygen amount: none Previous Rx's Medication Instructions Recorded ibuprofen 600 mg tablet 600 mg PO Q8H PRN #30 tab 01/30/20 lidocaine 5 % topical patch 1 patch TOPICAL DAILY #15 ea 01/30/20 (Lidoderm) ibuprofen 600 mg tablet 600 mg PO Q6H PRN #20 tab 02/03/20 vitamin with calcium 1 tab PO BEDTIME #30 tab 03/10/20 no.72-iron 27 mg-folic acid 1 mg tablet ( Vitamins Plus Low Iron) metronidazole 500 mg tablet 500 mg PO BID 7 Days #14 tab 03/21/20 (Flagyl) metronidazole 0.75 % vaginal gel 1 appful VAGINAL BEDTIME 5 Days 03/25/20 (Metrogel Vaginal) #70 g prednisone 20 mg tablet 40 mg PO DAILY 5 Days #10 tab 05/27/20 izyqpnnqih-nurtnzluafgeo-njybfsup 1 tab PO Q6H PRN #20 tab 06/26/20 50 mg-325 mg-40 mg tablet cyclobenzaprine 10 mg tablet 10 mg PO TID PRN #14 tab 06/26/20 cephalexin 500 mg capsule 500 mg PO BID 7 Days #14 cap 12/20/20 erythromycin 5 mg/gram (0.5 %) eye 0.5 inch OPHTHALMIC (EYE) BID 7 12/20/20 ointment Days #3.5 g terconazole 0.4 % vaginal cream 1 appful VAGINAL BEDTIME 7 Days 03/10/21 #45 g Allergies Allergy/AdvReac Type Severity Reaction Status Date / Time methylphenidate Allergy Unknown Swelling Verified 03/10/21 15:22 [From CONCERTA] nickel [NICKEL] Allergy Unknown HIVES Verified 03/10/21 15:22 ibuprofen AdvReac Rash Verified 03/10/21 15:22 Review of Systems Review of Systems: Constitutional : No Fever, No Chills ENT/Mouth : No Hoarseness, No sore throat, No Rhinorrhea Eyes: No Redness, No Discharge, No Vision Changes Cardiovascular : No Chest Pain, positive SOB, No Edema Respiratory : positive Cough, No Sputum, positive Wheezing, Gastrointestinal : No Nausea, No Vomiting, No Diarrhea, No abdominal Pain Genitourinary : No Dysuria, No Hematuria Musculoskeletal : No joint pain, No Myalgias Skin : No rash Neuro : No Weakness, No Numbness, No Headache Psych : No anxiety, depression Heme/Lymph: No Bruising, No Bleeding Endocrine : No Polyuria, No Polydipsia All other systems reviewed and are negative [facility] Past Medical History Attestation statement: The following information was validated with the patient. Source: old records reviewed Medical History Asthma delivery delivered Social History Social History Alcohol intake: never Advance Directives: No Advance Directives Information Provided: Yes Patient : Yes (Unknown) Sexual orientation: Straight/Heterosexual Physical Exam Vital Signs: Vital Signs: Last Vital Signs Temp 98.6 F 03/12/21 11:35 Pulse 78 03/12/21 11:35 Resp 16 03/12/21 11:35 BP 125/82 03/12/21 11:35 Pulse Ox 97 03/12/21 11:35 BMI result Body Mass Index 30.9 Vital signs have been reviewed as normal and appeared to be correct. Blood pressure normal.? Heart rate normal.? Respiration rate normal. Temperature normal.? Oxygen saturation normal. Appearance: Alert.?Oriented to person, place and time. No acute distress.?Normal affect. Head: Normocephalic, atraumatic. No head, sinus or TMJ tenderness.? Eyes: Sclera white, conjunctiva pink. PERRL, 3 mm bilaterally. EOMi.?No Nystagmus. Ears: Bilateral ear canals clear, TM visible with good cone of light.? Nose: Nasal mucosa pink and moist with midline septum, nares patent bilaterally.? Mouth/ Throat: Oral mucosa pink and moist without lesions. Pharynx without exudate, tonsils symmetric, no adenopathy.? Neck: Normal inspection.? Neck supple.?? CVS: Heart sounds normal. Normal heart rate and rhythm.? Pulses normal.?? Respiratory: No respiratory distress.? Lung sounds clear to auscultation bilaterally at apices, diminished at bases.?? Abdomen: Soft and non-tender. Normoactive bowel sounds. No pulsatile mass.?? Skin: Skin warm and dry.? Normal skin color.? Normal skin turgor.?? Extremities: No lower extremity edema.? No calf ttp? Neuro: Moves all extremities spontaneously. Sensation intact bilaterally. No focal neuro deficits. Course Course Course Narrative: Patient is a 30 year female presents emergency department for evaluation of headache, cough and shortness breath with COVID-19 positive. Chest x-ray obtained which reveals no acute disease. Given concern for possible , will obtain urine hCG. Vital signs are stable, not hypoxic oxygen 97% on room air, not tachycardic pulse 78, no risk factor for DVT/PE therefore unlikely to be pulmonary embolism, will defer CTA chest of time. Reevaluation(s) Reevaluation #1: Urine hCG negative. Symptoms consistent with COVID-19 infection. Patient to be discharged home, discussed return precautions, patient agreeable with plan. Time: 12:53 MDM - SOB/Dyspnea Medical Records Attestation: I reviewed the patient's medical records. Lab Data Attestation: I reviewed the patient's lab results. Labs: Lab Results 03/12/21 Range/Units 12:39 Urine Test NEGATIVE (NEGATIVE) Imaging Data Chest x-ray: Attestation: I personally reviewed and interpreted this imaging study as follows: Radiologist's impression: IMPRESSION: No acute disease. Discharge Plan Discharge Clinical Impression: COVID-19 Patient Disposition: Home, Self-Care Instructions: COVID-19 (Coronavirus Disease 2019) (ED) Additional Instructions: You were evaluated in the emergency department today for your concerns of shortness of breath, cough, and headache. These symptoms are consistent with COVID-19. The x-ray we obtained of your chest was normal. You may use buft-yar-hcdthth cough and cold medicine in addition to Tylenol and ibuprofen as needed for your pain. You should use the Albuterol inhaler in cases of shortness of breath. Your test was negative today. Please feel free to return to the emergency department any new or worsening concerns. Prescriptions: No Action metronidazole [Flagyl] 500 mg tablet 500 mg PO BID 7 Days Qty: 14 RF: 0 metronidazole [Metrogel Vaginal] 0.75 % gel 1 appful vaginal BEDTIME 5 Days Qty: 70 RF: 0 lidocaine [Lidoderm] 5 % adhesive patch,medicated 1 patch topical DAILY Qty: 15 RF: 0 ibuprofen 600 mg tablet 600 mg PO Q8H PRN (Reason: pain) Qty: 30 RF: 0 ibuprofen 600 mg tablet 600 mg PO Q6H PRN (Reason: pain) Qty: 20 RF: 0 prednisone 20 mg tablet 40 mg PO DAILY 5 Days Qty: 10 RF: 0 cyclobenzaprine 10 mg tablet 10 mg PO TID PRN (Reason: muscle spasm) Qty: 14 RF: 0 titkoyavbl-nxhehfyjinphm-rfmi 50-325-40 mg tablet 1 tab PO Q6H PRN (Reason: pain) Qty: 20 RF: 0 cephalexin 500 mg capsule 500 mg PO BID 7 Days Qty: 14 RF: 0 erythromycin 5 mg/gram (0.5 %) ointment 0.5 inch ophthalmic (eye) BID 7 Days Qty: 3.5 RF: 0 Vitamin Plus Low Iron 27 mg iron- 1 mg tablet 1 tab PO BEDTIME Qty: 30 RF: 11 terconazole 0.4 % cream 1 appful vaginal BEDTIME 7 Days Qty: 45 RF: 0
[2021-03-12 12:50] LABS: UPreg QC Valid YES; Urine Pregnancy NEGATIVE (NEGATIVE)
== END 2021-03-12 13:34 | disposition home or self-care (01) ==
PROVIDERS: Nurse Practitioner Family; Emergency Provider Emergency Medicine; PCP Internal Medicine
DX: U07.1 COVID-19 (principal); R06.02 Shortness of breath; J45.909 Unspecified asthma, uncomplicated
CPT/HCPCS: 71045; 81025; 99283

== ENCOUNTER 2021-04-12 01:18 | Emergency (ER) | payer OTHER, SELFPAY ==
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
[2021-04-12 01:22] VITALS: BP 128/80; PULSE 124; RESP 16; O2SAT 96; BMI 32.4
[2021-04-12 01:37] VITALS: BP 115/60; PULSE 98; RESP 16; TEMP 36.7; O2SAT 97
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
[2021-04-12 03:17] LABS: Appearance Urine HAZY; Color Urine DK YELLOW; Glucose Urine UA NEG (NEG); Leukocyte Esterase Urine NEG (NEG); Nitrite Urine NEG (NEG); Specific Gravity - Urine >= 1.030 (1.005-1.025); UACC Culture Trigger NO; Urine Blood 3+ (NEG); Urine Ketones 5 MG/DL (NEG); Urine Protein 2+ MG/DL (NEG-TRACE)
[2021-04-12 03:20] LABS: UPreg QC Valid YES; Urine Pregnancy NEGATIVE (NEGATIVE)
[2021-04-12 03:23] LABS: Bacteria Urine 3+ /LPF; Mucus Urine 3+ /LPF; Squamous Epithelial Cell Urine 4+ /LPF
[2021-04-12 03:24] LABS: Calcium Oxalate Crystals Urine 2+ /LPF
[2021-04-12 04:39] VITALS: BP 115/72; PULSE 68; RESP 16; TEMP 36.8; O2SAT 98
== END 2021-04-12 04:57 | disposition home or self-care (01) ==
PROVIDERS: Emergency Provider Student in an Organized Health Care Education/Training Program
DX: S02.2XXA Fracture of nasal bones, initial encounter for closed fracture (principal); G44.309 Post-traumatic headache, unspecified, not intractable; Y04.8XXA Assault by other bodily force, initial encounter; Y93.9 Activity, unspecified; Y92.9 Unspecified place or not applicable; Y99.9 Unspecified external cause status; Z79.899 Other long term (current) drug therapy
CPT/HCPCS: 70450; 70486; 81001; 81025; 99283

== ENCOUNTER 2021-07-25 18:54 | Emergency (ER) | payer OTHER, SELFPAY ==
[2021-07-25 19:06] VITALS: BP 110/61; PULSE 76; RESP 18; TEMP 36.9; O2SAT 99; BMI 31.3
--- NOTE | 2021-07-25 19:13 | ED_ITS ---
HPI - General Adult General Chief complaint: General Medical Stated complaint: ELEVATED BS 222,4MO PER EMS Time Seen by Provider: 07/25/21 19:11 Source: patient and EMS Mode of arrival: EMS Limitations: no limitations History of Present Illness HPI narrative: 31-year-old female no significant medical history A1, currently around 4 months presents to the emergency department with complaints of high blood sugars at home. Patient tells me that earlier today she took her blood sugar and it was around 400, she tells me that this is high for her. Patient tells me she is a type 2 diabetic and her sugars get worse during , patient taking insulin at home. Upon arrival to the emergency department EMS reported sugar of 222. Patient tells me that she only takes insulin at home so she wanted to be evaluated to make sure that there is nothing wrong. She denies vaginal bleeding, vaginal discharge, abdominal pain, chest pain, shortness of breath, nausea, vomiting, headache, dizziness, vision changes. Onset (ago): day(s) (1) Associated symptoms: denies other symptoms Treatments prior to arrival: none Related Data Previous Rx's Medication Instructions Recorded ibuprofen 600 mg tablet 600 mg PO Q8H PRN #30 tab 01/30/20 lidocaine 5 % topical patch 1 patch TOPICAL DAILY #15 ea 01/30/20 (Lidoderm) ibuprofen 600 mg tablet 600 mg PO Q6H PRN #20 tab 02/03/20 vitamin with calcium 1 tab PO BEDTIME #30 tab 03/10/20 no.72-iron 27 mg-folic acid 1 mg tablet ( Vitamins Plus Low Iron) metronidazole 500 mg tablet 500 mg PO BID 7 Days #14 tab 03/21/20 (Flagyl) metronidazole 0.75 % vaginal gel 1 appful VAGINAL BEDTIME 5 Days 03/25/20 (Metrogel Vaginal) #70 g prednisone 20 mg tablet 40 mg PO DAILY 5 Days #10 tab 05/27/20 lfkiujqmzj-ohjsqyxegxayy-minpftzq 1 tab PO Q6H PRN #20 tab 06/26/20 50 mg-325 mg-40 mg tablet cyclobenzaprine 10 mg tablet 10 mg PO TID PRN #14 tab 06/26/20 cephalexin 500 mg capsule 500 mg PO BID 7 Days #14 cap 12/20/20 erythromycin 5 mg/gram (0.5 %) eye 0.5 inch OPHTHALMIC (EYE) BID 7 12/20/20 ointment Days #3.5 g terconazole 0.4 % vaginal cream 1 appful VAGINAL BEDTIME 7 Days 03/10/21 #45 g Allergies Allergy/AdvReac Type Severity Reaction Status Date / Time methylphenidate Allergy Unknown Swelling Verified 04/12/21 01:22 [From CONCERTA] nickel [NICKEL] Allergy Unknown HIVES Verified 04/12/21 01:22 latex Allergy Unknown Verified 04/12/21 01:22 ibuprofen AdvReac Rash Verified 04/12/21 01:22 Review of Systems Review of Systems: Constitutional : No Weight loss, No Fever, No Chills, No Fatigue, No Malaise ENT/Mouth : No sore throat, No Rhinorrhea Eyes: No Eye Pain, No Swelling, No Redness Cardiovascular : No Chest Pain, No SOB, No Dyspnea on Exertion, No Orthopnea, No Edema, No Palpitations Respiratory : No Cough, No Sputum, No Wheezing Gastrointestinal : No Nausea, No Vomiting, No Diarrhea, No Constipation, No abdominal Pain, No Hematochezia, No Melena Genitourinary : No Dysuria, No Urinary Frequency, No Hematuria, Musculoskeletal : No joint pain, No Myalgias, No Joint Swelling Skin : No Skin Lesions, No rash Neuro : No Weakness, No Numbness, No Dizziness, No Headache Psych : No Anxiety/Panic, No Depression All other systems reviewed and are negative Yes all other systems are reviewed and are negative [facility] Past Medical History Attestation statement: The following information was validated with the patient. Source: old records reviewed and nursing notes reviewed Medical History Asthma delivery delivered Social History Social History Alcohol intake: never Advance Directives: No Advance Directives Information Provided: No Sexual orientation: Straight/Heterosexual Physical Exam ED Vital Signs: Vital Signs - 24 hr 07/25/21 19:06 Temperature 98.4 F Pulse Rate 76 Respiratory Rate 18 Blood Pressure 110/61 Pulse Oximetry 99 BMI result Body Mass Index 31.3 VSS Appearance: Alert.? Oriented X3.? No acute distress.? Head: Normocephalic, atraumatic, no step-offs or deformities Eyes: Pupils equal, round and reactive to light.? ENT: Pharynx normal.? Neck: Normal inspection.? Neck supple.? CVS: Normal heart rate and rhythm.? Pulses normal.? Respiratory: No respiratory distress.? Breath sounds normal.? Abdomen: Soft and nontender.? Ultrasound of the abdomen shows an intrauterine singular, with moving fetus. Heart rate by Doppler 159. No pain with palpation. Skin: Skin warm and dry.? Normal skin color.? Normal skin turgor.? Extremities: No lower extremity edema.? No calf ttp. 5/5 strength to bilateral upper and lower extremities Back: No midline tenderness, no C-spine tenderness, full range of motion, no CVA tenderness bilaterally Neuro: Oriented X 3.? No motor deficit.? No sensory deficit. CN 2-12 intact Course Reevaluation(s) Reevaluation #1: CBC with a mild normocytic anemia likely secondary to , no acute tomy ctrolyte abnormalities requiring intervention. Urine without infection, positive for glucose, 5 ketones, negative blood, negative nitrates. Pending acetone. COVID was invalid repeat COVID swab pending. heart tones 159. I did a bedside ultrasound was able to visualize an intrauterine with fetus moving, heart rate in the 150s 160s. Laboratory studies not consistent with preeclampsia. Unlikely that this is DKA. Time: 20:45 Reevaluation #2: Acetone negative, unlikely that this is DKA. Time: 21:01 Reevaluation #3: Patient telling me that she needs to leave, has only received a L of fluids. I had ordered a VBG however patient tells me she needs to leave to go home to her 5-year-old child, she tells me she wants to have the lab drawn and she will see results on the patient portal. She has no medical complaints at this time. She feels better, point of care upon discharge 161, patient tells me she has insulin at home that she can take. . Time: 21:29 Additional Reevaluation(s): Patient telling me that she would like to leave, she got through about half a L fluids. Does not want to stay for further labs, point of cares are hydration. VBG without acidosis again reassuring that this is not diabetic ketoacidosis. At this time patient will be discharged against medical advice. In stable condition at discharge Medical Decision Making MDM Narrative Medical decision making narrative: 190 31-year-old female A1 presents to the emergency department with complaints of high blood sugars at home, asymptomatic. Currently 4 months . Physical examination benign, abdomen soft nontender nondistended, bedside ultrasound was done which shows a single intrauterine , with a mobile fetus, heart rate by Doppler 159. Regular rate and rhythm. Lungs clear. Neuro exam is nonfocal. No CVA tenderness. Patient ambulating with steady gait. Plan at this time is urine, labs, fluids. Will rule out DKA, unlikely that this is preeclampsia. Medical Records Medical records reviewed: Yes I reviewed the patient's medical records. Lab Data Lab results reviewed: Yes I reviewed the patient's lab results. Result diagrams: 07/25/21 19:42 07/25/21 19:42 Labs: Lab Results 07/25/21 07/25/21 07/25/21 Range/Units 19:42 19:42 19:42 WBC 8.7 (4.8-10.8) X10*3/uL RBC 3.86 L (4.20-5.50) X10*6/uL Hgb 11.0 L (12.0-16.0) g/dl Hct 33.0 L (37.0-47.0) % MCV 85.5 (80.0-98.0) fL MCH 28.5 (27.0-33.0) pg MCHC 33.3 (31.0-35.0) g/dl RDW 14.6 (11.0-16.0) % Plt Count 269 (160-400) X10*3/uL MPV 9.1 L (9.4-12.3) fL Immature Gran % (Auto) 0.5 H (0.0-0.4) % Neut % (Auto) 66.2 (45-73) % Lymph % (Auto) 24.7 (20-40) % [place] % (Auto) 6.7 (2-11) % Eos % (Auto) 1.7 (0-4) % Baso % (Auto) 0.2 (0-2) % Lymph # (Auto) 2.1 (1.2-4.9) X10*3/uL [place] # (Auto) 0.6 (0.1-1.2) X10*3/uL Eos # (Auto) 0.2 (0.0-0.4) X10*3/uL Baso # (Auto) 0.0 (0.0-0.2) X10*3/uL Abs Immat Gran (auto) 0.04 H (0.00-0.03) X10*3/uL Absolute Neuts (auto) 5.7 (2.0-8.3) x10*3/uL Absolute Nucleated RBC 0.000 (0.0-0.012) X10*3/uL Nucleated RBC % (auto) 0.0 (0.0-0.2) /100WBC VBG pH (7.32-7.43) VBG pCO2 mmHg VBG pO2 mmHg VBG HCO3 (22-26) mmol/L VBG O2 Saturation % VBG Base Excess mmol/L Sodium 138 (135-145) mmol/L Potassium 4.3 (3.3-5.1) mmol/L Chloride 108 (96-108) mmol/L Carbon Dioxide 18 L (22-29) mmol/L Anion Gap 16 (12-20) BUN 7 L (9-16) mg/dL Creatinine 0.59 (0.5-1.4) mg/dL Estim Creat Clear Calc 161.2 Estimated GFR > 60 Random Glucose 184 H (60-115) mg/dL Calcium 8.4 D (8.4-10.2) mg/dL Total Bilirubin < 0.2 (0.0-1.0) mg/dL AST 20 (5-31) U/L ALT 14 (0-31) U/L Alkaline Phosphatase 60 (39-117) U/L Total Protein 6.4 L (6.5-8.0) g/dL Albumin 3.4 L (3.5-5.0) g/dL Urine Color Urine Appearance Urine pH (5.0-8.0) Ur Specific [place] (1.005-1.025) Urine Protein (NEG-TRACE) MG/DL Urine Glucose (UA) (NEG) MG/DL Urine Ketones (NEG) MG/DL Urine Blood (NEG) Urine Nitrite (NEG) Ur Leukocyte Esterase (NEG) Acetone, Qual (Negative) COVID-19 (CLAUDIA) Invalid (Negative) COVID-19 Clin Com See Note 07/25/21 07/25/2107/25/22 Range/Units 19:42 19:46 22:17 WBC (4.8-10.8) X10*3/uL RBC (4.20-5.50) X10*6/uL Hgb (12.0-16.0) g/dl Hct (37.0-47.0) % MCV (80.0-98.0) fL MCH (27.0-33.0) pg MCHC (31.0-35.0) g/dl RDW (11.0-16.0) % Plt Count (160-400) X10*3/uL MPV (9.4-12.3) fL Immature Gran % (Auto) (0.0-0.4) % Neut % (Auto) (45-73) % Lymph % (Auto) (20-40) % [place] % (Auto) (2-11) % Eos % (Auto) (0-4) % Baso % (Auto) (0-2) % Lymph # (Auto) (1.2-4.9) X10*3/uL [place] # (Auto) (0.1-1.2) X10*3/uL Eos # (Auto) (0.0-0.4) X10*3/uL Baso # (Auto) (0.0-0.2) X10*3/uL Abs Immat Gran (auto) (0.00-0.03) X10*3/uL Absolute Neuts (auto) (2.0-8.3) x10*3/uL Absolute Nucleated RBC (0.0-0.012) X10*3/uL Nucleated RBC % (auto) (0.0-0.2) /100WBC VBG pH 7.44 H (7.32-7.43) VBG pCO2 28 mmHg VBG pO2 179 mmHg VBG HCO3 19 L (22-26) mmol/L VBG O2 Saturation 100.0 % VBG Base Excess -3.4 mmol/L Sodium (135-145) mmol/L Potassium (3.3-5.1) mmol/L Chloride (96-108) mmol/L Carbon Dioxide (22-29) mmol/L Anion Gap (12-20) BUN (9-16) mg/dL Creatinine (0.5-1.4) mg/dL Estim Creat Clear Calc Estimated GFR Random Glucose (60-115) mg/dL Calcium (8.4-10.2) mg/dL Total Bilirubin (0.0-1.0) mg/dL AST (5-31) U/L ALT (0-31) U/L Alkaline Phosphatase (39-117) U/L Total Protein (6.5-8.0) g/dL Albumin (3.5-5.0) g/dL Urine Color YELLOW Urine Appearance HAZY Urine pH 5.5 (5.0-8.0) Ur Specific [place] >= 1.030 H (1.005-1.025) Urine Protein NEG (NEG-TRACE) MG/DL Urine Glucose (UA) 500 H (NEG) MG/DL Urine Ketones 5 (NEG) MG/DL Urine Blood NEG (NEG) Urine Nitrite NEG (NEG) Ur Leukocyte Esterase NEG (NEG) Acetone, Qual Negative (Negative) COVID-19 (CLAUDIA) (Negative) COVID-19 Clin Com Critical Care Time Critical Care Time Critical Care Time: No Discharge Plan Discharge Clinical Impression: Hyperglycemia, Intrauterine , Left against medical advice Patient Disposition: Left Against Medical Advice Instructions: (ED), Diabetic Hyperglycemia (ED), at 15 to 18 Weeks (ED) Additional Instructions: Take your medications as prescribed. If you were prescribed antibiotics today, it is important that you take your medication to their entirety, do not skip any doses, do not finish them early. Follow-up with your primary care provider this week. Please follow-up with OBGYN as soon as possible within 1-3 days. Return to the emergency department with new or worsening symptoms. Such as fevers, chills, chest pain, shortness of breath, nausea, vomiting, dizziness, headache, vision changes, lethargy In case of emergency call 911 heart tones were 159, ultrasound showed a intrauterine . Your labs were reassuring. You decided to leave against medical advice meeting your condition could worsen, complications include worsening of condition, decreased quality of life, harm to and born infant, , infection, sepsis. Prescriptions: No Action metronidazole [Flagyl] 500 mg tablet 500 mg PO BID 7 Days Qty: 14 0RF metronidazole [Metrogel Vaginal] 0.75 % gel 1 appful vaginal BEDTIME 5 Days Qty: 70 0RF lidocaine [Lidoderm] 5 % adhesive patch,medicated 1 patch topical DAILY Qty: 15 0RF Rx Instructions: leave on most painful area for up to 12 hrs ibuprofen 600 mg tablet 600 mg PO Q8H PRN (Reason: pain) Qty: 30 0RF ibuprofen 600 mg tablet 600 mg PO Q6H PRN (Reason: pain) Qty: 20 0RF prednisone 20 mg tablet 40 mg PO DAILY 5 Days Qty: 10 0RF cyclobenzaprine 10 mg tablet 10 mg PO TID PRN (Reason: muscle spasm) Qty: 14 0RF woycovgpwu-lwsnwdobehals-glfr 50-325-40 mg tablet 1 tab PO Q6H PRN (Reason: pain) Qty: 20 0RF cephalexin 500 mg capsule 500 mg PO BID 7 Days Qty: 14 0RF erythromycin 5 mg/gram (0.5 %) ointment 0.5 inch ophthalmic (eye) BID 7 Days Qty: 3.5 0RF Vitamin Plus Low Iron 27 mg iron- 1 mg tablet 1 tab PO BEDTIME Qty: 30 11RF Rx Instructions: give with food (meal/snack) terconazole 0.4 % cream 1 appful vaginal BEDTIME 7 Days Qty: 45 0RF Referrals: Physician,None [Primary Care Provider] - 2 days Stand Alone Forms: Against Medical Advice
--- NOTE | 2021-07-25 19:32 | PC.NURSE ---
Patient is 4 months , FHR 159 ascultated via Doppler, baby seen on ultrasound to be viable.
[2021-07-25 19:55] LABS: MANUAL DIFF FLAG NO
[2021-07-25 20:05] LABS: Appearance Urine HAZY; Color Urine YELLOW; Glucose Urine UA 500 MG/DL (NEG); Leukocyte Esterase Urine NEG (NEG); Nitrite Urine NEG (NEG); PH 5.5 (5.0-8.0); Specific Gravity - Urine >= 1.030 (1.005-1.025); Urine Blood NEG (NEG); Urine Ketones 5 MG/DL (NEG); Urine Protein NEG (NEG-TRACE)
[2021-07-25 20:05] LABS: Basophils Percent Auto 0.2 % (0-2); Eosinophils Absolute Auto 0.2 X10*3/uL (0.0-0.4); Eosinophils Percent Auto 1.7 % (0-4); Imm Gran Abs Auto 0.04 X10*3/uL (0.00-0.03); Imm Gran Pct Auto 0.5 % (0.0-0.4); Lymphocytes Absolute Auto 2.1 X10*3/uL (1.2-4.9); Lymphocytes Percent Auto 24.7 % (20-40); Mean Corpuscular HGB Conc 33.3 g/dl (31.0-35.0); Mean Corpuscular Hemoglobin 28.5 pg (27.0-33.0); Mean Corpuscular Volume 85.5 fL (80.0-98.0); Mean Platelet Volume 9.1 fL (9.4-12.3); Monocytes Absolute Auto 0.6 X10*3/uL (0.1-1.2); Monocytes Percent Auto 6.7 % (2-11); Neutrophils Absolute Auto 5.7 x10*3/uL (2.0-8.3); Neutrophils Percent Auto 66.2 % (45-73); Platelet Count 269 X10*3/uL (160-400); Red Blood Count 3.86 X10*6/uL (4.20-5.50); Red Cell Distribution Width 14.6 % (11.0-16.0); White Blood Count 8.7 X10*3/uL (4.8-10.8)
[2021-07-25 20:28] LABS: Alanine Aminotransferase 14 U/L (0-31); Albumin Level 3.4 g/dL (3.5-5.0); Alkaline Phosphatase 60 U/L (39-117); Anion Gap 16 (12-20); Aspartate Amino Transferase 20 U/L (5-31); Bilirubin Total < 0.2 mg/dL (0.0-1.0); Blood Urea Nitrogen 7 mg/dL (9-16); Calcium 8.4 mg/dL (8.4-10.2); Carbon Dioxide 18 mmol/L (22-29); Chloride 108 mmol/L (96-108); Creatinine Clr Calc Pharmacy 161.2; Estimated Glomerular Filt Rate > 60; Glucose Random 184 mg/dL (60-115); Potassium 4.3 mmol/L (3.3-5.1); Sodium 138 mmol/L (135-145); Total Protein 6.4 g/dL (6.5-8.0)
[2021-07-25 20:46] LABS: COVID-19 Test Invalid (Negative)
[2021-07-25 20:57] LABS: Acetone, serum QL Negative (Negative)
[2021-07-25] MEDS: 0.9 % Sodium Chloride 1,000 ML 999 ML IV (21:30)
--- NOTE | 2021-07-25 21:39 | PC.NURSE ---
POC 161
[2021-07-25 22:28] LABS: VBG Base Excess -3.4 mmol/L; VBG HCO3 19 mmol/L (22-26); VBG pCO2 28 mmHg; VBG pH 7.44 (7.32-7.43); VBG pO2 179 mmHg
[2021-07-25 22:53] LABS: Venous Blood Gas Refer to POC result
[2021-07-26 03:24] LABS: Glucose, Whole Blood 161 mg/dL (60-115)
== END 2021-07-25 22:55 | disposition left against medical advice (07) ==
PROVIDERS: Physician Assistant; Emergency Provider Emergency Medicine
DX: O24.112 Pre-existing type 2 diabetes mellitus, in pregnancy, second trimester (principal); E11.65 Type 2 diabetes mellitus with hyperglycemia; Z3A.00 Weeks of gestation of pregnancy not specified; Z20.822 Contact with and (suspected) exposure to COVID-19; Z79.4 Long term (current) use of insulin
CPT/HCPCS: 36415; 80053; 81003; 82009; 82803; 82947; 85025; 87635; 96360; 99284

== ENCOUNTER 2021-08-07 23:12 | Emergency (ER) | payer OTHER, SELFPAY ==
[2021-08-07 23:27] VITALS: BP 117/61; PULSE 77; RESP 18; TEMP 37.1; O2SAT 98; BMI 32.8
--- NOTE | 2021-08-07 23:28 | ED_ITS ---
HPI - General Adult General Chief complaint: General Medical Stated complaint: Infection to big toe Time Seen by Provider: 08/07/21 23:27 Source: patient Limitations: no limitations History of Present Illness HPI narrative: This is a 31-year-old female with history of type 2 diabetes who about 4 months , who had been wearing sandals, and had been on a train, and somehow injured her left big toenail. She does not recall specific injury but notes that the toenail area started to hurt and developed some redness and she noticed that the nail was loose. She denies any fever. Her blood sugar has been normal. She notes mild swelling to the toe, denies any pain or erythema to the foot. She called her OBGYN who wanted her to get checked and possibly started on antibiotics. She has not noted any drainage Related Data Previous Rx's Medication Instructions Recorded ibuprofen 600 mg tablet 600 mg PO Q8H PRN pain #30 tabs 01/30/20 lidocaine 5 % topical patch 1 patch topical DAILY #15 ea 01/30/20 (Lidoderm) ibuprofen 600 mg tablet 600 mg PO Q6H PRN pain #20 tabs 02/03/20 vitamin with calcium 1 tab PO BEDTIME #30 tabs 03/10/20 no.72-iron 27 mg-folic acid 1 mg tablet ( Vitamins Plus Low Iron) metronidazole 500 mg tablet 500 mg PO BID 7 days #14 tabs 03/21/20 (Flagyl) metronidazole 0.75 % vaginal gel 1 appful vaginal BEDTIME 5 days 03/25/20 (Metrogel Vaginal) #70 grams prednisone 20 mg tablet 40 mg PO DAILY 5 days #10 tabs 05/27/20 nxmsvjzdiv-wfaosvpglvdqy-kjeecdea 1 tab PO Q6H PRN pain #20 tabs 06/26/20 50 mg-325 mg-40 mg tablet cyclobenzaprine 10 mg tablet 10 mg PO TID PRN muscle spasm #14 06/26/20 tabs cephalexin 500 mg capsule 500 mg PO BID 7 days #14 caps 12/20/20 erythromycin 5 mg/gram (0.5 %) eye 0.5 inch ophthalmic (eye) BID 7 12/20/20 ointment days #3.5 grams terconazole 0.4 % vaginal cream 1 appful vaginal BEDTIME 7 days 03/10/21 #45 grams cephalexin 500 mg capsule 500 mg PO TID #20 caps 08/07/21 Allergies Allergy/AdvReac Type Severity Reaction Status Date / Time methylphenidate Allergy Unknown Swelling Verified 04/12/21 01:22 [From CONCERTA] nickel [NICKEL] Allergy Unknown HIVES Verified 04/12/21 01:22 latex Allergy Unknown Verified 04/12/21 01:22 ibuprofen AdvReac Rash Verified 04/12/21 01:22 Review of Systems Review of Systems: As per HPI [facility] Past Medical History Medical History Asthma delivery delivered Social History Social History Alcohol intake: never Advance Directives: No Sexual orientation: Straight/Heterosexual Physical Exam ED Const General: no acute distress Orientation/consciousness: patient oriented x3 HENMT Head: Yes normal to inspection General nose exam: Normal external nose present Mouth: moist mucous membranes Throat: Yes posterior oropharynx normal, Yes tonsils normal and Yes uvula midline Eyes Eyelids: Yes eyelids normal Conjunctivae: conjunctivae normal Pupils: Equal, round and reactive pupils present Neck Neck: Yes supple Resp Effort & Inspection: normal respiratory effort Auscultation: clear to auscultation bilaterally Cardio Rate: regular rate Rhythm: regular rhythm Heart sounds: S1 normal heart sound present, S2 normal heart sound present, no gallops, no murmurs and no rubs GI Other: Gravid consistent with dates Inspection: Yes distended Palpation (GI): Soft to palpation and nontender Auscultation: normal bowel sounds Skin General skin exam: other (Warm and dry) Neuro General: patient oriented x3 and CN's II-XI intact bilaterally Cranial nerves: Yes Equal, round and reactive pupils present Extrem Other: Left big toe with mild swelling and erythema to the dorsal distal segment. The nail is loose but is not avulsed from its origin. There is no erythema or induration on either the medial or lateral side to suggest ingrown toenail. There is no apparent now but laceration, no bleeding or dried blood. The toenail has nail [place] on it and is somewhat thickened and concave downward, needs trimming. General: Yes no pedal edema Psych Affect: normal affect Attitude: cooperative Medical Decision Making MDM Narrative Medical decision making narrative: Patient with loosening of her left big toenail but not avulsion from its base. This is perhaps due to trauma attic injury, though there are no other signs of trauma to the toe. Given that the nail is only adherent at the bite or the nail grows from the nail matrix, do not recommend removing the nail as it could disrupt the growth process. Recommend warm soaks, p.o. antibiotics, trimming the nail with nail clippers so that it is not protruding as much, keeping it covered with a gauze wrap so does not get caught on anything, and return for any worsened symptoms such as increased redness or swelling, fever Discharge Plan Discharge Clinical Impression: Nail avulsion of toe, Infection of toe Patient Disposition: Home, Self-Care Instructions: Nail Avulsion (ED) Additional Instructions: Use the cephalexin as prescribed. Use acetaminophen for pain. Use starting nail clippers to trim the nail back so it is not protruding. Soak the toe twice daily in warm water for 15 minutes, then wrapped with gauze in order to prevent the nail from getting caught on clothing or shoes. Return for any new or worsened symptoms such as increased redness or swelling, fever. The nail will fall off in time has new nail grows out. Prescriptions: New cephalexin 500 mg capsule 500 mg PO TID Qty: 20 0RF No Action metronidazole [Flagyl] 500 mg tablet 500 mg PO BID 7 Days Qty: 14 0RF metronidazole [Metrogel Vaginal] 0.75 % gel 1 appful vaginal BEDTIME 5 Days Qty: 70 0RF lidocaine [Lidoderm] 5 % adhesive patch,medicated 1 patch topical DAILY Qty: 15 0RF Rx Instructions: leave on most painful area for up to 12 hrs ibuprofen 600 mg tablet 600 mg PO Q8H PRN (Reason: pain) Qty: 30 0RF ibuprofen 600 mg tablet 600 mg PO Q6H PRN (Reason: pain) Qty: 20 0RF prednisone 20 mg tablet 40 mg PO DAILY 5 Days Qty: 10 0RF cyclobenzaprine 10 mg tablet 10 mg PO TID PRN (Reason: muscle spasm) Qty: 14 0RF otzoxrcofx-kwleiuqqdawsw-pslo 50-325-40 mg tablet 1 tab PO Q6H PRN (Reason: pain) Qty: 20 0RF cephalexin 500 mg capsule 500 mg PO BID 7 Days Qty: 14 0RF erythromycin 5 mg/gram (0.5 %) ointment 0.5 inch ophthalmic (eye) BID 7 Days Qty: 3.5 0RF Vitamin Plus Low Iron 27 mg iron- 1 mg tablet 1 tab PO BEDTIME Qty: 30 11RF Rx Instructions: give with food (meal/snack) terconazole 0.4 % cream 1 appful vaginal BEDTIME 7 Days Qty: 45 0RF
[2021-08-07] MEDS: cephALEXin 500 MG CAPSULE PO (23:46)
[2021-08-07] MEDS: Acetaminophen 325 MG TABLET 650 MG PO (23:46)
== END 2021-08-08 00:04 | disposition home or self-care (01) ==
PROVIDERS: Emergency Provider Emergency Medicine
DX: O9A.212 Injury, poisoning and certain other consequences of external causes complicating pregnancy, second trimester (principal); S91.202A Unspecified open wound of left great toe with damage to nail, initial encounter; L08.9 Local infection of the skin and subcutaneous tissue, unspecified; O24.112 Pre-existing type 2 diabetes mellitus, in pregnancy, second trimester; O99.512 Diseases of the respiratory system complicating pregnancy, second trimester; J45.909 Unspecified asthma, uncomplicated; O34.219 Maternal care for unspecified type scar from previous cesarean delivery; Z3A.00 Weeks of gestation of pregnancy not specified; X58.XXXA Exposure to other specified factors, initial encounter; Y93.9 Activity, unspecified; Y92.9 Unspecified place or not applicable; Y99.9 Unspecified external cause status
CPT/HCPCS: 99283

== ENCOUNTER 2021-09-27 16:47 | Emergency (ER) | payer OTHER, SELFPAY ==
[2021-09-27 16:59] VITALS: BP 124/76; PULSE 102; O2SAT 98
[2021-09-27 17:18] VITALS: BP 128/63; PULSE 94; RESP 18; TEMP 36.3; O2SAT 99; BMI 31.3
[2021-09-27 17:35] LABS: MANUAL DIFF FLAG NO
[2021-09-27 17:37] LABS: Appearance Urine HAZY; Color Urine YELLOW; Glucose Urine UA 250 MG/DL (NEG); Leukocyte Esterase Urine NEG (NEG); Nitrite Urine NEG (NEG); PH 5.5 (5.0-8.0); Specific Gravity - Urine >= 1.030 (1.005-1.025); Urine Blood NEG (NEG); Urine Ketones 5 MG/DL (NEG); Urine Protein NEG (NEG-TRACE)
[2021-09-27 17:37] LABS: Basophils Percent Auto 0.4 % (0-2); Eosinophils Absolute Auto 0.1 X10*3/uL (0.0-0.4); Eosinophils Percent Auto 1.2 % (0-4); Hematocrit 33.4 % (37.0-47.0); Hemoglobin 11.3 g/dl (12.0-16.0); Imm Gran Abs Auto 0.08 X10*3/uL (0.00-0.03); Imm Gran Pct Auto 0.9 % (0.0-0.4); Lymphocytes Absolute Auto 1.6 X10*3/uL (1.2-4.9); Lymphocytes Percent Auto 17.5 % (20-40); Mean Corpuscular HGB Conc 33.8 g/dl (31.0-35.0); Mean Corpuscular Hemoglobin 29.7 pg (27.0-33.0); Mean Corpuscular Volume 87.9 fL (80.0-98.0); Mean Platelet Volume 9.1 fL (9.4-12.3); Monocytes Absolute Auto 0.6 X10*3/uL (0.1-1.2); Monocytes Percent Auto 6.5 % (2-11); Neutrophils Absolute Auto 6.8 x10*3/uL (2.0-8.3); Neutrophils Percent Auto 73.5 % (45-73); Platelet Count 288 X10*3/uL (160-400); Red Cell Distribution Width 14.1 % (11.0-16.0); White Blood Count 9.2 X10*3/uL (4.8-10.8)
[2021-09-27 17:55] LABS: Alanine Aminotransferase 36 U/L (0-31); Albumin Level 3.5 g/dL (3.5-5.0); Alkaline Phosphatase 70 U/L (39-117); Anion Gap 14 (12-20); Aspartate Amino Transferase 32 U/L (5-31); Bilirubin Total 0.3 mg/dL (0.0-1.0); Blood Urea Nitrogen 6 mg/dL (9-16); Calcium 8.7 mg/dL (8.4-10.2); Carbon Dioxide 22 mmol/L (22-29); Chloride 104 mmol/L (96-108); Creatinine Clr Calc Pharmacy 166.9; Estimated Glomerular Filt Rate > 60; Glucose Random 173 mg/dL (60-115); Potassium 3.8 mmol/L (3.3-5.1); Sodium 136 mmol/L (135-145); Total Protein 6.4 g/dL (6.5-8.0)
== END 2021-09-27 20:17 | disposition left against medical advice (07) ==
PROVIDERS: Emergency Provider Emergency Medicine
DX: R73.9 Hyperglycemia, unspecified (principal)
CPT/HCPCS: 36415; 80053; 81003; 85025; 99282; 99283

== ENCOUNTER 2021-11-11 14:22 | Emergency (ER) | payer OTHER, SELFPAY ==
[2021-11-11 15:04] VITALS: BP 137/67; PULSE 106; RESP 18; TEMP 36.6; O2SAT 97; BMI 34.5
[2021-11-11 15:42] LABS: COVID-19 Test Invalid (Negative); IDNOW Serial# 9DD0AD1C
== END 2021-11-11 15:45 | disposition left against medical advice (07) ==
PROVIDERS: Emergency Provider Emergency Medicine
DX: O26.893 Other specified pregnancy related conditions, third trimester (principal); Z3A.32 32 weeks gestation of pregnancy; Z20.822 Contact with and (suspected) exposure to COVID-19
CPT/HCPCS: 87635; 99281

== ENCOUNTER 2021-11-15 13:32 | Emergency (ER) | payer OTHER, SELFPAY ==
[2021-11-15 13:44] VITALS: BP 103/60; BP 128/75; PULSE 103; PULSE 110; RESP 18; O2SAT 98; BMI 34.0
--- NOTE | 2021-11-15 14:16 | ED_ITS ---
HPI - General Adult General Chief complaint: General Medical Stated complaint: PELVIC PAIN,32 WEEKS Time Seen by Provider: 11/15/21 14:16 Source: patient Mode of arrival: EMS Limitations: no limitations History of Present Illness HPI narrative: Patient to , 32 weeks been having lower abdominal cramps for last 6 days was seen at [facility] 5 days ago discharge now she comes as last night have almost every 2 hours lasting for 1 hour, no water leakage no bleeding patient does have whitish discharge with itching Related Data Previous Rx's Medication Instructions Recorded ibuprofen 600 mg tablet 600 mg PO Q8H PRN pain #30 tabs 01/30/20 lidocaine 5 % topical patch 1 patch topical DAILY #15 ea 01/30/20 (Lidoderm) ibuprofen 600 mg tablet 600 mg PO Q6H PRN pain #20 tabs 02/03/20 vitamin with calcium 1 tab PO BEDTIME #30 tabs 03/10/20 no.72-iron 27 mg-folic acid 1 mg tablet ( Vitamins Plus Low Iron) metronidazole 500 mg tablet 500 mg PO BID 7 days #14 tabs 03/21/20 (Flagyl) metronidazole 0.75 % (37.5 mg/5 1 appful vaginal BEDTIME 5 days 03/25/20 gram) vaginal gel (Metrogel #70 grams Vaginal) prednisone 20 mg tablet 40 mg PO DAILY 5 days #10 tabs 05/27/20 vwvtmnlgrs-netyndwovhsxm-jcgtmrdd 1 tab PO Q6H PRN pain #20 tabs 06/26/20 50 mg-325 mg-40 mg tablet cyclobenzaprine 10 mg tablet 10 mg PO TID PRN muscle spasm #14 06/26/20 tabs cephalexin 500 mg capsule 500 mg PO BID 7 days #14 caps 12/20/20 erythromycin 5 mg/gram (0.5 %) eye 0.5 inch ophthalmic (eye) BID 7 12/20/20 ointment days #3.5 grams terconazole 0.4 % vaginal cream 1 appful vaginal BEDTIME 7 days 03/10/21 #45 grams cephalexin 500 mg capsule 500 mg PO TID #20 caps 08/07/21 miconazole nitrate 4 % (200 mg)-2 See Rx Instructions vaginal 11/15/21 % (9 gram)vaginal,prefill .COMPLEX #24 grams appl,cream (Monistat 3) Allergies Allergy/AdvReac Type Severity Reaction Status Date / Time methylphenidate Allergy Unknown Swelling Verified 11/11/21 15:06 [From CONCERTA] nickel [NICKEL] Allergy Unknown HIVES Verified 11/11/21 15:06 latex Allergy Unknown Verified 11/11/21 15:06 ibuprofen AdvReac Rash Verified 11/11/21 15:06 Review of Systems Review of Systems: Yes all other systems are reviewed and are negative [facility] Past Medical History Medical History Asthma delivery delivered Social History Social History Alcohol intake: never Advance Directives: No Advance Directives Information Provided: Yes Sexual orientation: Straight/Heterosexual Physical Exam ED Vital Signs: Vital Signs - 24 hr 11/15/21 13:44 Pulse Rate 103 H Respiratory Rate 18 Blood Pressure 128/75 Pulse Oximetry 98 Oxygen Delivery Method Room Air BMI result Body Mass Index 34.0 Appearance: Alert. Oriented X3. No acute distress. Eyes: PERRLA, No Nystagmus ENT: Pharynx normal. Oral Mucosa moist Neck: Normal inspection. Neck supple. CVS: Normal heart rate and rhythm. Pulses normal. Respiratory: No respiratory distress. Equal air entry bilateral, no wheezing/rales/rhonchi Abdomen: Soft , gravid uterus Bowel sounds are present, no mass palpable, no CVA tenderness FHS 151 pelvic: Os is closed , whitish curdish discharge in the vaginal Skin: Skin warm and dry. Normal skin color. Normal skin turgor. Extremities: No lower extremity edema. No calf tenderness Neuro: Oriented X 3. Medical Decision Making MDM Narrative Medical decision making narrative: 1400 Bedside ultrasound showed heart rate of 151 normal activities. Patient with [place] contractions os is closed case discussed with OB at [facility] will examine the patient there patient will go off or on with family in the car to see the OB doctor Lab Data Lab results reviewed: Yes I reviewed the patient's lab results. Labs: Lab Results 11/15/21 11/15/21 Range/Units 14:24 14:36 Urine Color Yellow Urine Appearance Clear Urine pH 6.0 (5.0-9.0) Ur Specific [place] >= 1.030 H (1.005-1.025) Urine Protein Negative (Neg-Trace) mg/dL Urine Glucose (UA) >=1000 H (Negative) mg/dL Urine Ketones Trace (Negative) mg/dL Urine Blood Negative (Negative) Urine Nitrite Negative (Negative) Ur Leukocyte Esterase Trace H (Negative) COVID-19 (CLAUDIA) Negative (Negative) COVID-19 Clin Com See Note Discharge Plan Discharge Clinical Impression: contractions, Vagina, candidiasis Patient Disposition: Home, Self-Care Instructions: Yeast Infection (ED), [place] Contractions (ED) Additional Instructions: Go to [facility] for further evaluation Apply cream for vaginal candidiasis as prescribed Prescriptions: New miconazole nitrate [Monistat 3] 4 % (200 mg)- 2 % (9 gram) comb pack,prefill appl, cream See Rx Instructions .ROUTE .COMPLEX Qty: 24 0RF Rx Instructions: put 1 supp in vagina at bedtime x 3nites;use cream on area outside vagina 2X/day for up to 7days No Action metronidazole [Flagyl] 500 mg tablet 500 mg PO BID 7 Days Qty: 14 0RF metronidazole [Metrogel Vaginal] 0.75 % gel 1 appful vaginal BEDTIME 5 Days Qty: 70 0RF lidocaine [Lidoderm] 5 % adhesive patch,medicated 1 patch topical DAILY Qty: 15 0RF Rx Instructions: leave on most painful area for up to 12 hrs ibuprofen 600 mg tablet 600 mg PO Q8H PRN (Reason: pain) Qty: 30 0RF ibuprofen 600 mg tablet 600 mg PO Q6H PRN (Reason: pain) Qty: 20 0RF prednisone 20 mg tablet 40 mg PO DAILY 5 Days Qty: 10 0RF cyclobenzaprine 10 mg tablet 10 mg PO TID PRN (Reason: muscle spasm) Qty: 14 0RF pfkhpnczpw-syzffobtzbsgc-ksnt 50-325-40 mg tablet 1 tab PO Q6H PRN (Reason: pain) Qty: 20 0RF cephalexin 500 mg capsule 500 mg PO TID Qty: 20 0RF cephalexin 500 mg capsule 500 mg PO BID 7 Days Qty: 14 0RF erythromycin 5 mg/gram (0.5 %) ointment 0.5 inch ophthalmic (eye) BID 7 Days Qty: 3.5 0RF Vitamin Plus Low Iron 27 mg iron- 1 mg tablet 1 tab PO BEDTIME Qty: 30 11RF Rx Instructions: give with food (meal/snack) terconazole 0.4 % cream 1 appful vaginal BEDTIME 7 Days Qty: 45 0RF
[2021-11-15 14:45] LABS: Appearance Urine Clear; Color Urine Yellow; Glucose Urine UA >=1000 mg/dL (Negative); Leukocyte Esterase Urine Trace (Negative); Nitrite Urine Negative (Negative); Specific Gravity - Urine >= 1.030 (1.005-1.025); UMIC TRIGGER UACC YES; Urine Blood Negative (Negative); Urine Ketones Trace mg/dL (Negative); Urine Protein Negative (Neg-Trace)
[2021-11-15 14:46] LABS: COVID-19 Test Negative (Negative)
[2021-11-15 15:06] LABS: Bacteria Urine Trace (None Seen); Hyaline Casts Urine 0-2 /LPF (0-2); RBC Urine 0-2 /HPF (0-2); UACC Culture Trigger YES
== END 2021-11-15 15:07 | disposition home or self-care (01) ==
PROVIDERS: Emergency Provider Internal Medicine
DX: O98.813 Other maternal infectious and parasitic diseases complicating pregnancy, third trimester (principal); Z3A.32 32 weeks gestation of pregnancy; Z20.822 Contact with and (suspected) exposure to COVID-19; Z79.899 Other long term (current) drug therapy
CPT/HCPCS: 81001; 87086; 87635; 99282; 99283

== ENCOUNTER 2022-02-06 08:22 | Emergency (ER) | payer OTHER, SELFPAY ==
--- NOTE | ~2022-02-06 | XR_ITS ---
EXAMINATION: XR HAND, RIGHT CLINICAL INFORMATION: Right hand pain and swelling. COMPARISON: None TECHNIQUE: PA, lateral, and oblique views of the right hand. FINDINGS: The bones and soft tissues are normal. No fracture. Alignment is anatomic. Joint spaces are maintained. No erosions or soft tissue calcifications. XR/XR hand RT 2V IMPRESSION: Unremarkable examination.
[2022-02-06 08:32] VITALS: BP 132/74; PULSE 68; RESP 16; TEMP 36.2; O2SAT 99; BMI 33.6
--- NOTE | 2022-02-06 09:52 | ED_ITS ---
HPI - Extremity Problem General Chief complaint: Extremity Problem Stated complaint: pain in R arm up to shoulder Time Seen by Provider: 02/06/22 09:12 History of Present Illness HPI Narrative: patient complains of pain without injury in right hand, pain is mostly thumb index and long finger, it does get bad night there are some paresthesias The patient was recently and gave to a healthy child Related Data Previous Rx's Medication Instructions Recorded ibuprofen 600 mg tablet 600 mg PO Q8H PRN pain #30 tabs 01/30/20 lidocaine 5 % topical patch 1 patch topical DAILY #15 ea 01/30/20 (Lidoderm) ibuprofen 600 mg tablet 600 mg PO Q6H PRN pain #20 tabs 02/03/20 vitamin with calcium 1 tab PO BEDTIME #30 tabs 03/10/20 no.72-iron 27 mg-folic acid 1 mg tablet ( Vitamins Plus Low Iron) metronidazole 500 mg tablet 500 mg PO BID 7 days #14 tabs 03/21/20 (Flagyl) metronidazole 0.75 % (37.5 mg/5 1 appful vaginal BEDTIME 5 days 03/25/20 gram) vaginal gel (Metrogel #70 grams Vaginal) prednisone 20 mg tablet 40 mg PO DAILY 5 days #10 tabs 05/27/20 cacxjahotg-kmbuwqngehkkn-xlbxtfud 1 tab PO Q6H PRN pain #20 tabs 06/26/20 50 mg-325 mg-40 mg tablet cyclobenzaprine 10 mg tablet 10 mg PO TID PRN muscle spasm #14 06/26/20 tabs cephalexin 500 mg capsule 500 mg PO BID 7 days #14 caps 12/20/20 erythromycin 5 mg/gram (0.5 %) eye 0.5 inch ophthalmic (eye) BID 7 12/20/20 ointment days #3.5 grams terconazole 0.4 % vaginal cream 1 appful vaginal BEDTIME 7 days 03/10/21 #45 grams cephalexin 500 mg capsule 500 mg PO TID #20 caps 08/07/21 miconazole nitrate 4 % (200 mg)-2 See Rx Instructions vaginal 11/15/21 % (9 gram)vaginal,prefill .COMPLEX #24 grams appl,cream (Monistat 3) nitrofurantoin 100 mg PO Q12H 7 days #14 caps 11/18/21 monohydrate/macrocrystals 100 mg capsule (Macrobid) ibuprofen 800 mg tablet 800 mg PO Q8H PRN pain #30 tabs 02/06/22 prednisone 20 mg tablet 60 mg PO DAILY 4 days #12 tabs 02/06/22 Allergies Allergy/AdvReac Type Severity Reaction Status Date / Time methylphenidate Allergy Unknown Swelling Verified 11/11/21 15:06 [From CONCERTA] nickel [NICKEL] Allergy Unknown HIVES Verified 11/11/21 15:06 latex Allergy Unknown Verified 11/11/21 15:06 ibuprofen AdvReac Rash Verified 11/11/21 15:06 Review of Systems Review of Systems: positive for right hand pain and paresthesias Negatives are no fever no chills no headache no neck pain no radiating pain no back pain no loss of sensation no muscle weakness no rash no redness no swelling Yes all other systems are reviewed and are negative [facility] Past Medical History Source: nursing notes reviewed Medical History Asthma delivery delivered Social History Social History Alcohol intake: never Advance Directives: No Advance Directives Information Provided: No Sexual orientation: Straight/Heterosexual Physical Exam Vital Signs: Vital Signs: Last Vital Signs Temp 97.2 F 02/06/22 08:32 Pulse 68 02/06/22 08:32 Resp 16 02/06/22 08:32 BP 132/74 02/06/22 08:32 Pulse Ox 99 02/06/22 08:32 O2 Del Method 02/06/22 08:32 BMI result Body Mass Index 33.6 general appearance no acute distress Head is normocephalic atraumatic Neck is supple Respiratory no distress Extremities the right wrist and hand showed no swelling no redness no rash, there was tenderness over the thumb index and middle fingers, there was full range of motion, there was a positive Phalen sign, there was some radiating pain and paresthesia to the 1st and 2nd digits when I tapped on the volar surface of the wrist, no evidence of tendon deficit, motor and sensation were normal distal Other extremities normal Skin no rash Course Course Course Narrative: recently patient with some tingling and pain in a median nerve distribution with a positive Phalen test is referred to Ortho for possible carpal tunnel Medications Administered Discontinued Medications Generic Name Dose Route Start Last Admin Trade Name Freq PRN Reason Stop Dose Admin Ibuprofen 800 mg 02/06/22 10:07 02/06/22 10:16 Ibuprofen 800 Mg Tablet PO 02/06/22 10:08 800 mg ONCE ONE Administration Prednisone 60 mg 02/06/22 10:07 02/06/22 10:16 Prednisone 20 Mg Tablet PO 02/06/22 10:08 60 mg ONCE ONE Administration Discharge Plan Discharge Clinical Impression: Acute carpal tunnel syndrome Patient Disposition: Home, Self-Care Additional Instructions: it is likely that you have carpal tunnel syndrome which can cause pain and tingling in the thumb and index finger, it is common from Wearing a wrist splint especially at night may be helpful We are trying a short course of steroids and anti-inflammatory ibuprofen Follow with hand doctor Return any time any worse condition or any concerns Prescriptions: New ibuprofen 800 mg tablet 800 mg PO Q8H PRN (Reason: pain) Qty: 30 0RF prednisone 20 mg tablet 60 mg PO DAILY 4 Days Qty: 12 0RF No Action metronidazole [Flagyl] 500 mg tablet 500 mg PO BID 7 Days Qty: 14 0RF metronidazole [Metrogel Vaginal] 0.75 % gel 1 appful vaginal BEDTIME 5 Days Qty: 70 0RF lidocaine [Lidoderm] 5 % adhesive patch,medicated 1 patch topical DAILY Qty: 15 0RF Rx Instructions: leave on most painful area for up to 12 hrs ibuprofen 600 mg tablet 600 mg PO Q8H PRN (Reason: pain) Qty: 30 0RF ibuprofen 600 mg tablet 600 mg PO Q6H PRN (Reason: pain) Qty: 20 0RF prednisone 20 mg tablet 40 mg PO DAILY 5 Days Qty: 10 0RF cyclobenzaprine 10 mg tablet 10 mg PO TID PRN (Reason: muscle spasm) Qty: 14 0RF oiihanlgac-richxndhdzrdf-peti 50-325-40 mg tablet 1 tab PO Q6H PRN (Reason: pain) Qty: 20 0RF cephalexin 500 mg capsule 500 mg PO TID Qty: 20 0RF miconazole nitrate [Monistat 3] 4 % (200 mg)- 2 % (9 gram) comb pack,prefill appl, cream See Rx Instructions .ROUTE .COMPLEX Qty: 24 0RF Rx Instructions: put 1 supp in vagina at bedtime x 3nites;use cream on area outside vagina 2X/day for up to 7days nitrofurantoin monohyd/m-cryst [Macrobid] 100 mg capsule 100 mg PO Q12H 7 Days Qty: 14 0RF Rx Instructions: must administer with a meal/food cephalexin 500 mg capsule 500 mg PO BID 7 Days Qty: 14 0RF erythromycin 5 mg/gram (0.5 %) ointment 0.5 inch ophthalmic (eye) BID 7 Days Qty: 3.5 0RF Vitamin Plus Low Iron 27 mg iron- 1 mg tablet 1 tab PO BEDTIME Qty: 30 11RF Rx Instructions: give with food (meal/snack) terconazole 0.4 % cream 1 appful vaginal BEDTIME 7 Days Qty: 45 0RF Interventions: ED Discharge Assessment Last Done: 02/06/22 10:26 Discharge Date/Time: 02/06/22 10:26
[2022-02-06] MEDS: Ibuprofen 800 MG TABLET PO (10:16)
[2022-02-06] MEDS: predniSONE 20 MG TABLET 60 MG PO (10:16)
== END 2022-02-06 10:26 | disposition home or self-care (01) ==
PROVIDERS: Emergency Provider Emergency Medicine
DX: G56.01 Carpal tunnel syndrome, right upper limb (principal)
CPT/HCPCS: 73120; 99283; 99284

== ENCOUNTER 2022-03-10 08:31 | Emergency (ER) | payer OTHER, SELFPAY ==
[2022-03-10 08:37] VITALS: BP 136/73; PULSE 90; RESP 18; TEMP 36.6; O2SAT 97; BMI 31.3
--- NOTE | 2022-03-10 09:02 | ED_ITS ---
HPI - URI/Sore Throat General Chief Complaint: Upper Respiratory Symptoms Stated Complaint: Congestion/Cough Time Seen by Provider: 03/10/22 09:01 Source: patient Mode of arrival: ambulatory Limitations: no limitations History of Present Illness HPI Narrative: 31 yo female presents to the ER for evaluation of 1 day of cough, nasal congestion and sinus pain. She states she started feeling unwell last night. Both of her young children are sick as well as her significant other. She has a mild dry cough not associated with sputum production, chest pain or difficulty breathing. No fevers, nausea, vomiting or abdominal pain. She has some right ear pain and fullness. Nasal discharge is clear. MD elicited complaint: cough, nasal congestion and sinus pain Onset (ago): hour(s) Consistency: progressively worsening Severity: moderate Description of mucous: clear and watery Able to tolerate fluids by mouth: Yes Exacerbating factors: supine positioning Relieving factors: OTC cold medicine Context: sick contacts Associated symptoms: headache, rhinorrhea, nasal congestion, cough and ear pain Treatments prior to arrival: none Related Data Previous Rx's Medication Instructions Recorded ibuprofen 600 mg tablet 600 mg PO Q8H PRN pain #30 tabs 01/30/20 lidocaine 5 % topical patch 1 patch topical DAILY #15 ea 01/30/20 (Lidoderm) ibuprofen 600 mg tablet 600 mg PO Q6H PRN pain #20 tabs 02/03/20 vitamin with calcium 1 tab PO BEDTIME #30 tabs 03/10/20 no.72-iron 27 mg-folic acid 1 mg tablet ( Vitamins Plus Low Iron) metronidazole 500 mg tablet 500 mg PO BID 7 days #14 tabs 03/21/20 (Flagyl) metronidazole 0.75 % (37.5 mg/5 1 appful vaginal BEDTIME 5 days 03/25/20 gram) vaginal gel (Metrogel #70 grams Vaginal) prednisone 20 mg tablet 40 mg PO DAILY 5 days #10 tabs 05/27/20 bcrwwnrdlm-jalcvucwlajuv-vnvhtshf 1 tab PO Q6H PRN pain #20 tabs 06/26/20 50 mg-325 mg-40 mg tablet cyclobenzaprine 10 mg tablet 10 mg PO TID PRN muscle spasm #14 06/26/20 tabs cephalexin 500 mg capsule 500 mg PO BID 7 days #14 caps 12/20/20 erythromycin 5 mg/gram (0.5 %) eye 0.5 inch ophthalmic (eye) BID 7 12/20/20 ointment days #3.5 grams terconazole 0.4 % vaginal cream 1 appful vaginal BEDTIME 7 days 03/10/21 #45 grams cephalexin 500 mg capsule 500 mg PO TID #20 caps 08/07/21 miconazole nitrate 4 % (200 mg)-2 See Rx Instructions vaginal 11/15/21 % (9 gram)vaginal,prefill .COMPLEX #24 grams appl,cream (Monistat 3) nitrofurantoin 100 mg PO Q12H 7 days #14 caps 11/18/21 monohydrate/macrocrystals 100 mg capsule (Macrobid) ibuprofen 800 mg tablet 800 mg PO Q8H PRN pain #30 tabs 02/06/22 prednisone 20 mg tablet 60 mg PO DAILY 4 days #12 tabs 02/06/22 fluticasone propionate 50 1 spray intranasal BID #16 grams 03/10/22 mcg/actuation nasal spray,suspension (Flonase Allergy Relief) Allergies Allergy/AdvReac Type Severity Reaction Status Date / Time methylphenidate Allergy Unknown Swelling Verified 03/10/22 08:37 [From CONCERTA] nickel [NICKEL] Allergy Unknown HIVES Verified 03/10/22 08:37 latex Allergy Unknown Verified 03/10/22 08:37 ibuprofen AdvReac Rash Verified 03/10/22 08:37 Review of Systems 2 Review of Systems: Yes all other systems are reviewed and are negative [facility] Past Medical History Medical History Asthma delivery delivered Social History Social History Alcohol intake: never Advance Directives: No Advance Directives Information Provided: No Sexual orientation: Straight/Heterosexual Physical Exam Vital Signs: Vital Signs: Last Vital Signs Temp 98 F 03/10/22 08:37 Pulse 90 03/10/22 08:37 Resp 18 03/10/22 08:37 BP 136/73 03/10/22 08:37 Pulse Ox 97 03/10/22 08:37 O2 Del Method 03/10/22 08:37 BMI result Body Mass Index 31.3 Appearance: Alert. Oriented X3. No acute distress. Eyes: Pupils equal, round and reactive to light. ENT: Pharynx normal. Moist mucous membranes. Posterior pharynx with no tonsillar swelling or exudate. Uvula midline. Clear nasal discharge noted. Right TM with effusion without bulging or loss of landmarks. No erythema. Left TM is normal. Neck: Normal inspection. Neck supple. No lymphadenopathy CVS: Normal heart rate and rhythm. Pulses normal. Respiratory: No respiratory distress. Breath sounds normal. Abdomen: Soft and nontender. +BS x4 Skin: Skin warm and dry. Normal skin color. Normal skin turgor. No rashes. Extremities: No lower extremity edema. Neuro: Oriented X 3. Grossly normal, nonfocal Course Course Course Narrative: 31-year-old female presents to the ER for evaluation of cough, nasal congestion, sinus pain and right ear pain that started last night. Her to sick children are with her as well as her significant other. Her vital signs are stable and her exam is unremarkable. Viral swab sent. Will reassess. Reevaluation(s) Reevaluation #1: Viral swabs are negative today. She is stable for discharge home with Flonase. Patient agrees with plan. Medical Decision Making Differential Diagnosis Differential Diagnoses: The differential diagnosis associated with the presentation includes viral syndrome, covid, flu, rsv, ear infection, sinus infection, pneumonia Lab Data MDM Lab Attestation statement: I reviewed the patient's lab results. negative swabs Labs: Lab Results 03/10/22 Range/Units 08:49 Influenza Type A (PCR) NEGATIVE (Negative) Influenza Type B (PCR) NEGATIVE (Negative) RSV RNA Qual (PCR) NEGATIVE (Negative) SARS-CoV-2 RNA (RT-PCR) NEGATIVE (Negative) Independent Historian Clinical information obtained from an independent historian. History obtained from or confirmed by: Spouse External Record Review External record reviewed: Prior outpatient labs Tests considered The following testing was considered but not selected: CXR not needed - clear lungs Prescription Management I considered prescription management with: Antibiotic no evidence of bacterial infection Critical Care Time Critical Care Time Critical Care Time: No Discharge Plan Discharge Clinical Impression: Viral infection Patient Disposition: Home, Self-Care Additional Instructions: You tested negative for COVID, flu, RSV. Use the prescribed nasal steroid medication to help with your nasal congestion and ear pain. Take Motrin Tylenol as needed for fevers and pains. Take sjtb-sdk-vxgmprn cold and flu medications as needed for your other symptoms. Rest and stay hydrated. If you develop new or worsening symptoms call 911 or come back to the ER for further evaluation. Prescriptions: New fluticasone propionate [Flonase Allergy Relief] 50 mcg/actuation spray,suspension 1 spray intranasal BID Qty: 16 0RF Rx Instructions: administer into each nostril No Action metronidazole [Flagyl] 500 mg tablet 500 mg PO BID 7 Days Qty: 14 0RF metronidazole [Metrogel Vaginal] 0.75 % gel 1 appful vaginal BEDTIME 5 Days Qty: 70 0RF lidocaine [Lidoderm] 5 % adhesive patch,medicated 1 patch topical DAILY Qty: 15 0RF Rx Instructions: leave on most painful area for up to 12 hrs ibuprofen 600 mg tablet 600 mg PO Q8H PRN (Reason: pain) Qty: 30 0RF ibuprofen 600 mg tablet 600 mg PO Q6H PRN (Reason: pain) Qty: 20 0RF prednisone 20 mg tablet 40 mg PO DAILY 5 Days Qty: 10 0RF cyclobenzaprine 10 mg tablet 10 mg PO TID PRN (Reason: muscle spasm) Qty: 14 0RF lrgheplspa-nvhzfefxvwxfp-vver 50-325-40 mg tablet 1 tab PO Q6H PRN (Reason: pain) Qty: 20 0RF cephalexin 500 mg capsule 500 mg PO TID Qty: 20 0RF miconazole nitrate [Monistat 3] 4 % (200 mg)- 2 % (9 gram) comb pack,prefill appl, cream See Rx Instructions .ROUTE .COMPLEX Qty: 24 0RF Rx Instructions: put 1 supp in vagina at bedtime x 3nites;use cream on area outside vagina 2X/day for up to 7days nitrofurantoin monohyd/m-cryst [Macrobid] 100 mg capsule 100 mg PO Q12H 7 Days Qty: 14 0RF Rx Instructions: must administer with a meal/food ibuprofen 800 mg tablet 800 mg PO Q8H PRN (Reason: pain) Qty: 30 0RF prednisone 20 mg tablet 60 mg PO DAILY 4 Days Qty: 12 0RF cephalexin 500 mg capsule 500 mg PO BID 7 Days Qty: 14 0RF erythromycin 5 mg/gram (0.5 %) ointment 0.5 inch ophthalmic (eye) BID 7 Days Qty: 3.5 0RF Vitamin Plus Low Iron 27 mg iron- 1 mg tablet 1 tab PO BEDTIME Qty: 30 11RF Rx Instructions: give with food (meal/snack) terconazole 0.4 % cream 1 appful vaginal BEDTIME 7 Days Qty: 45 0RF
[2022-03-10 09:54] LABS: Influenza A PCR NEGATIVE (Negative); Influenza B PCR NEGATIVE (Negative); Resp Syncy Virus RNA Qual PCR NEGATIVE (Negative); SARS COV2 PCR INHOUSE NEGATIVE (Negative)
== END 2022-03-10 11:06 | disposition home or self-care (01) ==
PROVIDERS: Emergency Provider Emergency Medicine
DX: B34.9 Viral infection, unspecified (principal); Z20.822 Contact with and (suspected) exposure to COVID-19; Z20.828 Contact with and (suspected) exposure to other viral communicable diseases; J45.909 Unspecified asthma, uncomplicated
CPT/HCPCS: 0241U; 99283; 99284

== ENCOUNTER 2022-09-16 15:49 | Emergency (ER) | payer MEDICAID, SELFPAY ==
--- NOTE | ~2022-09-16 | XR_ITS ---
EXAMINATION: XR CHEST CLINICAL INFORMATION: Chest pain. COMPARISON: Chest radiographs dated 03/12/2021. TECHNIQUE: 2 views of the chest were obtained. FINDINGS: No significant abnormality is noted involving the heart, lungs, mediastinum, bony thorax or soft tissues. XR/XR chest 2V IMPRESSION: No acute cardiopulmonary process.
[2022-09-16 15:56] VITALS: BP 117/84; BP 124/70; PULSE 75; PULSE 78; RESP 18; TEMP 36.3; O2SAT 98; O2SAT 99; BMI 32.8
--- NOTE | 2022-09-16 16:00 | ED_ITS ---
HPI - General Adult General Chief complaint: Chest Pain Stated complaint: CHEST PAIN Related Data Previous Rx's Medication Instructions Recorded ibuprofen 600 mg tablet 600 mg PO Q8H PRN pain #30 tabs 01/30/20 lidocaine 5 % topical patch 1 patch topical DAILY #15 ea 01/30/20 (Lidoderm) ibuprofen 600 mg tablet 600 mg PO Q6H PRN pain #20 tabs 02/03/20 vitamin with calcium 1 tab PO BEDTIME #30 tabs 03/10/20 no.72-iron 27 mg-folic acid 1 mg tablet ( Vitamins Plus Low Iron) metronidazole 500 mg tablet 500 mg PO BID 7 days #14 tabs 03/21/20 (Flagyl) metronidazole 0.75 % (37.5 mg/5 1 appful vaginal BEDTIME 5 days 03/25/20 gram) vaginal gel (Metrogel #70 grams Vaginal) prednisone 20 mg tablet 40 mg PO DAILY 5 days #10 tabs 05/27/20 xlfbrcjqjm-mtnsocesijbja-okxnwcfr 1 tab PO Q6H PRN pain #20 tabs 06/26/20 50 mg-325 mg-40 mg tablet cyclobenzaprine 10 mg tablet 10 mg PO TID PRN muscle spasm #14 06/26/20 tabs cephalexin 500 mg capsule 500 mg PO BID 7 days #14 caps 12/20/20 erythromycin 5 mg/gram (0.5 %) eye 0.5 inch ophthalmic (eye) BID 7 12/20/20 ointment days #3.5 grams terconazole 0.4 % vaginal cream 1 appful vaginal BEDTIME 7 days 03/10/21 #45 grams cephalexin 500 mg capsule 500 mg PO TID #20 caps 08/07/21 miconazole nitrate 4 % (200 mg)-2 See Rx Instructions vaginal 11/15/21 % (9 gram)vaginal,prefill .COMPLEX #24 grams appl,cream (Monistat 3) nitrofurantoin 100 mg PO Q12H 7 days #14 caps 11/18/21 monohydrate/macrocrystals 100 mg capsule (Macrobid) ibuprofen 800 mg tablet 800 mg PO Q8H PRN pain #30 tabs 02/06/22 prednisone 20 mg tablet 60 mg PO DAILY 4 days #12 tabs 02/06/22 fluticasone propionate 50 1 spray intranasal BID #16 grams 03/10/22 mcg/actuation nasal spray,suspension (Flonase Allergy Relief) Allergies Allergy/AdvReac Type Severity Reaction Status Date / Time methylphenidate Allergy Unknown Swelling Verified 03/10/22 08:37 [From [facility]ERTA] nickel [NICKEL] Allergy Unknown HIVES Verified 03/10/22 08:37 latex Allergy Unknown Verified 03/10/22 08:37 ibuprofen AdvReac Rash Verified 03/10/22 08:37 PMFSH Past Medical History Medical History Asthma delivery delivered Social History Social History Alcohol intake: never Advance Directives: No Advance Directives Information Provided: No Sexual orientation: Straight/Heterosexual Physical Exam ED Vital Signs: BMI result Body Mass Index 32.8 Course Course Course Narrative: This is an RME: Additional HPI, ROS, PE not included below will be deferred to primary provider. This is a [id number]-chi-female, hx of diabetes, here with chest pain x 1 hour [place] [employer]. Pain radiating into abdomen and left arm. Endorsing shortness of breath. No palpitations. some TTP over anterior chest wall. Plan: EKG, labs, CXR. Reevaluation(s) Reevaluation #1: pt eloped prior to being fully evaluated in the main ER. Medical Decision Making Lab Data 09/16/22 16:19 09/16/22 16:19 Labs: Lab Results 09/16/22 09/16/22 09/16/22 Range/Units 16:19 16:19 16:19 WBC 7.2 (4.8-10.8) X10*3/uL RBC 4.49 (4.20-5.50) X10*6/uL Hgb 12.8 (12.0-16.0) g/dl Hct 38.8 (37.0-47.0) % MCV 86.4 (80.0-98.0) fL MCH 28.5 (27.0-33.0) pg MCHC 33.0 (31.0-35.0) g/dl RDW 12.4 (11.0-16.0) % Plt Count 267 (160-400) X10*3/uL MPV 9.8 (9.4-12.3) fL Immature Gran % (Auto) 0.6 H (0.0-0.4) % Neut % (Auto) 60.8 (45-73) % Lymph % (Auto) 30.2 (20-40) % Smyth % (Auto) 6.3 (2-11) % Eos % (Auto) 1.7 (0-4) % Baso % (Auto) 0.4 (0-2) % Lymph # (Auto) 2.2 (1.2-4.9) X10*3/uL Smyth # (Auto) 0.5 (0.1-1.2) X10*3/uL Eos # (Auto) 0.1 (0.0-0.4) X10*3/uL Baso # (Auto) 0.0 (0.0-0.2) X10*3/uL Abs Immat Gran (auto) 0.04 H (0.00-0.03) X10*3/uL Absolute Neuts (auto) 4.4 (2.0-8.3) x10*3/uL Absolute Nucleated RBC 0.000 (0.0-0.012) X10*3/uL Nucleated RBC % (auto) 0.0 (0.0-0.2) /100WBC Sodium 140 (135-145) mmol/L Potassium 4.1 (3.3-5.1) mmol/L Chloride 106 (96-108) mmol/L Carbon Dioxide 21 L (22-29) mmol/L Anion Gap 17 (12-20) BUN 9 (9-16) mg/dL Creatinine 0.71 (0.5-1.4) mg/dL Estim Creat Clear Calc 140.3 Estimated GFR > 60 Random Glucose 155 H (60-115) mg/dL Calcium 9.6 D (8.4-10.2) mg/dL Troponin I High Sens < 2.7 (<3.5-17.0) ng/L Discharge Plan Discharge Clinical Impression: Chest pain Patient Disposition: Elopement Prescriptions: No Action metronidazole [Flagyl] 500 mg tablet 500 mg PO BID 7 Days Qty: 14 0RF metronidazole [Metrogel Vaginal] 0.75 % gel 1 appful vaginal BEDTIME 5 Days Qty: 70 0RF lidocaine [Lidoderm] 5 % adhesive patch,medicated 1 patch topical DAILY Qty: 15 0RF Rx Instructions: leave on most painful area for up to 12 hrs ibuprofen 600 mg tablet 600 mg PO Q8H PRN (Reason: pain) Qty: 30 0RF ibuprofen 600 mg tablet 600 mg PO Q6H PRN (Reason: pain) Qty: 20 0RF prednisone 20 mg tablet 40 mg PO DAILY 5 Days Qty: 10 0RF cyclobenzaprine 10 mg tablet 10 mg PO TID PRN (Reason: muscle spasm) Qty: 14 0RF pdphlwynjl-admwfmrjgvpfq-kdsn 50-325-40 mg tablet 1 tab PO Q6H PRN (Reason: pain) Qty: 20 0RF cephalexin 500 mg capsule 500 mg PO TID Qty: 20 0RF miconazole nitrate [Monistat 3] 4 % (200 mg)- 2 % (9 gram) comb pack,prefill appl, cream See Rx Instructions .ROUTE .COMPLEX Qty: 24 0RF Rx Instructions: put 1 supp in vagina at bedtime x 3nites;use cream on area outside vagina 2X/day for up to 7days nitrofurantoin monohyd/m-cryst [Macrobid] 100 mg capsule 100 mg PO Q12H 7 Days Qty: 14 0RF Rx Instructions: must administer with a meal/food ibuprofen 800 mg tablet 800 mg PO Q8H PRN (Reason: pain) Qty: 30 0RF prednisone 20 mg tablet 60 mg PO DAILY 4 Days Qty: 12 0RF fluticasone propionate [Flonase Allergy Relief] 50 mcg/actuation spray,suspension 1 spray intranasal BID Qty: 16 0RF Rx Instructions: administer into each nostril cephalexin 500 mg capsule 500 mg PO BID 7 Days Qty: 14 0RF erythromycin 5 mg/gram (0.5 %) ointment 0.5 inch ophthalmic (eye) BID 7 Days Qty: 3.5 0RF Vitamin Plus Low Iron 27 mg iron- 1 mg tablet 1 tab PO BEDTIME Qty: 30 11RF Rx Instructions: give with food (meal/snack) terconazole 0.4 % cream 1 appful vaginal BEDTIME 7 Days Qty: 45 0RF Interventions: ED Discharge Assessment Last Done: 09/16/22 19:37 Discharge Date/Time: 09/16/22 19:39
--- NOTE | 2022-09-16 16:03 | ECG_ITS ---
Test Reason : chest pain Blood Pressure : / mmHG Vent. Rate : 065 BPM Atrial Rate : 065 BPM P-R Int : 142 ms QRS Dur : 088 ms QT Int : 398 ms P-R-T Axes : 030 069 052 degrees QTc Int : 413 ms Normal sinus rhythm with sinus arrhythmia Normal ECG No previous ECGs available Referred By: Jenniffer Hoover Electronically Signed By:SHORTY CUEVA MD
[2022-09-16 16:27] LABS: MANUAL DIFF FLAG NO
[2022-09-16 16:32] LABS: Basophils Percent Auto 0.4 % (0-2); Eosinophils Absolute Auto 0.1 X10*3/uL (0.0-0.4); Eosinophils Percent Auto 1.7 % (0-4); Hematocrit 38.8 % (37.0-47.0); Hemoglobin 12.8 g/dl (12.0-16.0); Imm Gran Abs Auto 0.04 X10*3/uL (0.00-0.03); Imm Gran Pct Auto 0.6 % (0.0-0.4); Lymphocytes Absolute Auto 2.2 X10*3/uL (1.2-4.9); Lymphocytes Percent Auto 30.2 % (20-40); Mean Corpuscular Hemoglobin 28.5 pg (27.0-33.0); Mean Corpuscular Volume 86.4 fL (80.0-98.0); Mean Platelet Volume 9.8 fL (9.4-12.3); Monocytes Absolute Auto 0.5 X10*3/uL (0.1-1.2); Monocytes Percent Auto 6.3 % (2-11); Neutrophils Absolute Auto 4.4 x10*3/uL (2.0-8.3); Neutrophils Percent Auto 60.8 % (45-73); Platelet Count 267 X10*3/uL (160-400); Red Blood Count 4.49 X10*6/uL (4.20-5.50); Red Cell Distribution Width 12.4 % (11.0-16.0); White Blood Count 7.2 X10*3/uL (4.8-10.8)
[2022-09-16 16:51] LABS: Anion Gap 17 (12-20); Blood Urea Nitrogen 9 mg/dL (9-16); Calcium 9.6 mg/dL (8.4-10.2); Carbon Dioxide 21 mmol/L (22-29); Chloride 106 mmol/L (96-108); Creatinine Clr Calc Pharmacy 140.3; Estimated Glomerular Filt Rate > 60; Glucose Random 155 mg/dL (60-115); Potassium 4.1 mmol/L (3.3-5.1); Sodium 140 mmol/L (135-145)
[2022-09-16 16:56] LABS: Troponin-I High Sensitivity < 2.7 ng/L (<3.5-17.0)
== END 2022-09-16 19:39 | disposition left against medical advice (07) ==
PROVIDERS: Physician Assistant Medical; Emergency Provider Emergency Medicine
DX: R07.89 Other chest pain (principal); Z79.899 Other long term (current) drug therapy
CPT/HCPCS: 36415; 71046; 80048; 84484; 85025; 93005; 99283

== ENCOUNTER → 2022-09-16 16:03 | Outpatient (BNV) | payer MEDICAID, SELFPAY | PROVIDERS: Emergency Provider Emergency Medicine; Visit Provider Internal Medicine Cardiovascular Disease | DX: R07.9 Chest pain, unspecified (principal) | CPT/HCPCS: 93010 ==

== ENCOUNTER 2022-11-06 07:54 | Emergency (ER) | payer MEDICAID, SELFPAY ==
--- NOTE | ~2022-11-06 | XR_ITS ---
EXAMINATION: X-ray right ankle X-ray right foot CLINICAL INFORMATION: Fall, pain COMPARISON: None TECHNIQUE: Right ankle 4 views. Right foot 3 views. FINDINGS: Right ankle: Slightly atypical positioning with associated limitation. No visible acute or dislocation. Alignment for positioning/technique, the ankle mortise grossly appears maintained. Talar dome appears intact. Anterior calcaneal process and talus appears intact. Foot: Skin marker positioned along the lateral aspect of the midfoot. Normal bone mineralization. Bony alignment is anatomic. No visible acute fracture or dislocation. Tarsometatarsal alignment is within normal limits. No unexpected radiopaque densities. XR/XR ankle RT 2V IMPRESSION: No radiographically evident acute fracture, dislocation or malalignment. If there are persistent clinical concern/symptoms, short-term follow-up imaging can be obtained.
--- NOTE | ~2022-11-06 | XR_ITS ---
EXAMINATION: X-ray right ankle X-ray right foot CLINICAL INFORMATION: Fall, pain COMPARISON: None TECHNIQUE: Right ankle 4 views. Right foot 3 views. FINDINGS: Right ankle: Slightly atypical positioning with associated limitation. No visible acute or dislocation. Alignment for positioning/technique, the ankle mortise grossly appears maintained. Talar dome appears intact. Anterior calcaneal process and talus appears intact. Foot: Skin marker positioned along the lateral aspect of the midfoot. Normal bone mineralization. Bony alignment is anatomic. No visible acute fracture or dislocation. Tarsometatarsal alignment is within normal limits. No unexpected radiopaque densities. XR/XR foot RT 2V IMPRESSION: No radiographically evident acute fracture, dislocation or malalignment. If there are persistent clinical concern/symptoms, short-term follow-up imaging can be obtained.
[2022-11-06 08:08] VITALS: BP 127/71; PULSE 68; RESP 18; TEMP 36.7; O2SAT 99; BMI 29.0
--- NOTE | 2022-11-06 08:55 | ED_ITS ---
HPI - Extremity Injury (Lower) General Chief Complaint: Extremity Injury, Lower Stated Complaint: r ankle inj Time Seen by Provider: 11/06/22 08:35 Source: patient Mode of arrival: ambulatory Limitations: no limitations History of Present Illness HPI Narrative: patient is a 32-year-old female who presents to the emergency department for evaluation of right ankle pain after mechanical trip and fall this morning The stairs. She has pain to the lateral ankle and lateral midfoot. Denies numbness tingling or cold sensation. Denies history of prior injury to this ankle. Related Data Previous Rx's Medication Instructions Recorded ibuprofen 600 mg tablet 600 mg PO Q8H PRN pain #30 tabs 01/30/20 lidocaine 5 % topical patch 1 patch topical DAILY #15 ea 01/30/20 (Lidoderm) ibuprofen 600 mg tablet 600 mg PO Q6H PRN pain #20 tabs 02/03/20 vitamin with calcium 1 tab PO BEDTIME #30 tabs 03/10/20 no.72-iron 27 mg-folic acid 1 mg tablet ( Vitamins Plus Low Iron) metronidazole 500 mg tablet 500 mg PO BID 7 days #14 tabs 03/21/20 (Flagyl) metronidazole 0.75 % (37.5 mg/5 1 appful vaginal BEDTIME 5 days 03/25/20 gram) vaginal gel (Metrogel #70 grams Vaginal) prednisone 20 mg tablet 40 mg (2 x 20 mg) PO DAILY 5 days 05/27/20 #10 tabs fcfvseguog-riyudcxcxgqmb-prxbfonv 1 tab PO Q6H PRN pain #20 tabs 06/26/20 50 mg-325 mg-40 mg tablet cyclobenzaprine 10 mg tablet 10 mg PO TID PRN muscle spasm #14 06/26/20 tabs cephalexin 500 mg capsule 500 mg PO BID 7 days #14 caps 12/20/20 erythromycin 5 mg/gram (0.5 %) eye 0.5 inch ophthalmic (eye) BID 7 12/20/20 ointment days #3.5 grams terconazole 0.4 % vaginal cream 1 appful vaginal BEDTIME 7 days 03/10/21 #45 grams cephalexin 500 mg capsule 500 mg PO TID #20 caps 08/07/21 miconazole nitrate 4 % (200 mg)-2 See Rx Instructions vaginal 11/15/21 % (9 gram)vaginal,prefill .COMPLEX #24 grams appl,cream (Monistat 3) nitrofurantoin 100 mg PO Q12H 7 days #14 caps 11/18/21 monohydrate/macrocrystals 100 mg capsule (Macrobid) ibuprofen 800 mg tablet 800 mg PO Q8H PRN pain #30 tabs 02/06/22 prednisone 20 mg tablet 60 mg (3 x 20 mg) PO DAILY 4 days 02/06/22 #12 tabs fluticasone propionate 50 1 spray intranasal BID #16 grams 03/10/22 mcg/actuation nasal spray,suspension (Flonase Allergy Relief) Allergies Allergy/AdvReac Type Severity Reaction Status Date / Time methylphenidate Allergy Unknown Swelling Verified 03/10/22 08:37 [From [facility]] nickel [NICKEL] Allergy Unknown HIVES Verified 03/10/22 08:37 latex Allergy Unknown Verified 03/10/22 08:37 ibuprofen AdvReac Rash Verified 03/10/22 08:37 Review of Systems Review of Systems: Yes all other systems are reviewed and are negative PMFSH Past Medical History Attestation statement: The following information was validated with the patient. Source: old records reviewed Medical History Asthma delivery delivered Social History Social History Alcohol intake: never Advance Directives: No Advance Directives Information Provided: Yes Sexual orientation: Straight/Heterosexual Physical Exam Vital Signs: Vital Signs: Last Vital Signs Temp 98.3 F 11/06/22 09:01 Pulse 77 11/06/22 09:01 Resp 20 11/06/22 09:01 BP 138/72 11/06/22 09:01 Pulse Ox 97 11/06/22 09:01 O2 Del Method Room Air 11/06/22 09:01 BMI result Body Mass Index 29.0 Appearance: Alert.?Oriented to person, place and time. No acute distress.?Normal affect. Neck: Normal inspection.? Neck supple.?? CVS: Heart sounds normal. Normal heart rate and rhythm.? Pulses normal.?? Respiratory: No respiratory distress.? Lung sounds clear to auscultation bilaterally?? Skin: Skin warm and dry.? Normal skin color.? Extremities: Localized swelling to the right lateral malleolus and lateral midfoot, Decreased AROM to the ankle. No calf tenderness upon palpation. 2+ DP/PT pulse bilaterally. Neuro: Moves all extremities spontaneously. Sensation intact bilaterally. Ambulates with antalgic gait. Medical Decision Making Medical Decision Making [facility] Narrative: patient is a 32-year-old female presents emergency department evaluation after a mechanical trip and fall earlier this morning with right ankle pain. At the time examination she is overall well-appearing. Nontoxic. Afebrile. The ankle is without erythema or warmth, not consistent with any septic joint. She has decreased AROM, extremity is however neurovascularly intact distally. Obtained XR imaging to exclude fracture or dislocation; XR reveals no evidence of acute fracture or dislocation. At this time symptoms most consistent with a sprain. Discussed CANDIE ALFONSO pain manacement, outpatient follow-up with PCP, offered acetaminophen/ibuprofen for pain she however declines. Differential Diagnosis Differential Diagnoses: The differential diagnosis associated with the presentation includes (see narrative above) Lab Data Labs: Lab Results 11/06/22 Range/Units 08:59 POC Glucose 171 H (60-115) mg/dL Independent Interpretation I performed an independent interpretation of an: Plain X-Ray (I personally interpreted XR imaging of the right ankle and foot and agree with radiologist impression) Radiology Impression Discussion of test interpretation with radiology: I have reviewed the radiologist's reading. Radiologist Impression: XR/XR foot RT 2V IMPRESSION: No radiographically evident acute fracture, dislocation or malalignment. If there are persistent clinical concern/symptoms, short-term follow-up imaging can be obtained. Discharge Plan Discharge Clinical Impression: Ankle sprain Qualifiers: Encounter type: initial encounter Laterality: right Patient Disposition: Home, Self-Care Instructions: Ankle Sprain (ED), R.I.C.E. Treatment (ED) Additional Instructions: You can take ibuprofen 200 mg, 3 tablets (600mg) every 6-8 hours as needed for pain, in addition to Tylenol 500 mg, 2 tablets (1,000mg) every 4-6 hours as needed for pain, but not to exceed 3 doses daily (3,000mg).? Use the nhi bandage for compression as instructed, and crutches as instructed. You can apply weight to the ankle as tolerated. Follow-up with your PCP for any new or worsening symptoms or concerns. Prescriptions: No Action metronidazole [Flagyl] 500 mg tablet 500 mg PO BID 7 Days Qty: 14 0RF metronidazole [Metrogel Vaginal] 0.75 % gel 1 appful vaginal BEDTIME 5 Days Qty: 70 0RF lidocaine [Lidoderm] 5 % adhesive patch,medicated 1 patch topical DAILY Qty: 15 0RF Rx Instructions: leave on most painful area for up to 12 hrs ibuprofen 600 mg tablet 600 mg PO Q8H PRN (Reason: pain) Qty: 30 0RF ibuprofen 600 mg tablet 600 mg PO Q6H PRN (Reason: pain) Qty: 20 0RF prednisone 20 mg tablet 40 mg PO DAILY 5 Days Qty: 10 0RF cyclobenzaprine 10 mg tablet 10 mg PO TID PRN (Reason: muscle spasm) Qty: 14 0RF ufkajexsxk-qvdxxufdqytji-kkzt 50-325-40 mg tablet 1 tab PO Q6H PRN (Reason: pain) Qty: 20 0RF cephalexin 500 mg capsule 500 mg PO TID Qty: 20 0RF miconazole nitrate [Monistat 3] 4 % (200 mg)- 2 % (9 gram) comb pack,prefill appl, cream See Rx Instructions .ROUTE .COMPLEX Qty: 24 0RF Rx Instructions: put 1 supp in vagina at bedtime x 3nites;use cream on area outside vagina 2X/day for up to 7days nitrofurantoin monohyd/m-cryst [Macrobid] 100 mg capsule 100 mg PO Q12H 7 Days Qty: 14 0RF Rx Instructions: must administer with a meal/food ibuprofen 800 mg tablet 800 mg PO Q8H PRN (Reason: pain) Qty: 30 0RF prednisone 20 mg tablet 60 mg PO DAILY 4 Days Qty: 12 0RF fluticasone propionate [Flonase Allergy Relief] 50 mcg/actuation spray,suspension 1 spray intranasal BID Qty: 16 0RF Rx Instructions: administer into each nostril cephalexin 500 mg capsule 500 mg PO BID 7 Days Qty: 14 0RF erythromycin 5 mg/gram (0.5 %) ointment 0.5 inch ophthalmic (eye) BID 7 Days Qty: 3.5 0RF Vitamin Plus Low Iron 27 mg iron- 1 mg tablet 1 tab PO BEDTIME Qty: 30 11RF Rx Instructions: give with food (meal/snack) terconazole 0.4 % cream 1 appful vaginal BEDTIME 7 Days Qty: 45 0RF Referrals: Physician,Unknown J [Primary Care Provider] -
[2022-11-06 09:01] VITALS: BP 138/72; PULSE 77; RESP 20; TEMP 36.8; O2SAT 97
[2022-11-06 09:06] LABS: Glucose, Whole Blood 171 mg/dL (60-115)
[2022-11-06 10:27] VITALS: BP 138/59; PULSE 66; RESP 20; O2SAT 98
== END 2022-11-06 10:37 | disposition home or self-care (01) ==
PROVIDERS: Emergency Provider Student in an Organized Health Care Education/Training Program
DX: S93.401A Sprain of unspecified ligament of right ankle, initial encounter (principal); W10.9XXA Fall (on) (from) unspecified stairs and steps, initial encounter; Y93.9 Activity, unspecified; Y92.9 Unspecified place or not applicable; Y99.9 Unspecified external cause status; M25.571 Pain in right ankle and joints of right foot
CPT/HCPCS: 73600; 73620; 82947; 99284

== ENCOUNTER 2023-01-16 12:09 | Emergency (ER) | payer MEDICAID, SELFPAY ==
[2023-01-16 12:16] VITALS: BP 120/75; PULSE 74; O2SAT 100
[2023-01-16 12:28] LABS: Glucose, Whole Blood 158 mg/dL (60-115)
[2023-01-16 13:02] VITALS: BP 143/68; PULSE 72; RESP 18; TEMP 36.2; O2SAT 100; BMI 29.3
--- NOTE | 2023-01-16 13:02 | ED_ITS ---
HPI - General Adult General Chief complaint: General Medical Stated complaint: HIGH BLOOD SUGAR Time Seen by Provider: 01/16/23 13:41 Source: patient Mode of arrival: ambulatory Limitations: no limitations History of Present Illness HPI narrative: 32 year old female with pmhx significant for asthma and T2DM presents to the ED today for evaluation of vaginal itching/ discharge x2 days. Reports history of yeast infection when she was . States this feels similar. Endorses vaginal pruritus with white discharge. Endorses new sexual partner and is unsure of STD status. States she would like to be tested today. LMP 12/30/22. Uses protection in the form of nexplanon implant and condoms. Additionally endorses elevated sugars. She is a type 2 diabetic and currently follows with her primary care provider. She tracks her sugars at home, her sugar was noted to be 300 this morning. She has an appointment with her primary care provider next week. Is wondering if her elevated sugars are contributing to her vaginal pruritus/discharge. No other complaints in ED. Denies fever, chills, abdominal pain, flank pain, nausea/vomiting, dysuria, hematuria. Related Data Previous Rx's Medication Instructions Recorded ibuprofen 600 mg tablet 600 mg PO Q8H PRN pain #30 tabs 01/30/20 lidocaine 5 % topical patch 1 patch topical DAILY #15 ea 01/30/20 (Lidoderm) ibuprofen 600 mg tablet 600 mg PO Q6H PRN pain #20 tabs 02/03/20 vitamin with calcium 1 tab PO BEDTIME #30 tabs 03/10/20 no.72-iron 27 mg-folic acid 1 mg tablet ( Vitamins Plus Low Iron) metronidazole 500 mg tablet 500 mg PO BID 7 days #14 tabs 03/21/20 (Flagyl) metronidazole 0.75 % (37.5 mg/5 1 appful vaginal BEDTIME 5 days 03/25/20 gram) vaginal gel (Metrogel #70 grams Vaginal) prednisone 20 mg tablet 40 mg (2 x 20 mg) PO DAILY 5 days 05/27/20 #10 tabs banwspooyi-yxpwqznerxuyl-fkqhkofh 1 tab PO Q6H PRN pain #20 tabs 06/26/20 50 mg-325 mg-40 mg tablet cyclobenzaprine 10 mg tablet 10 mg PO TID PRN muscle spasm #14 06/26/20 tabs cephalexin 500 mg capsule 500 mg PO BID 7 days #14 caps 12/20/20 erythromycin 5 mg/gram (0.5 %) eye 0.5 inch ophthalmic (eye) BID 7 12/20/20 ointment days #3.5 grams terconazole 0.4 % vaginal cream 1 appful vaginal BEDTIME 7 days 03/10/21 #45 grams cephalexin 500 mg capsule 500 mg PO TID #20 caps 08/07/21 miconazole nitrate 4 % (200 mg)-2 See Rx Instructions vaginal 11/15/21 % (9 gram)vaginal,prefill .COMPLEX #24 grams appl,cream (Monistat 3) nitrofurantoin 100 mg PO Q12H 7 days #14 caps 11/18/21 monohydrate/macrocrystals 100 mg capsule (Macrobid) ibuprofen 800 mg tablet 800 mg PO Q8H PRN pain #30 tabs 02/06/22 prednisone 20 mg tablet 60 mg (3 x 20 mg) PO DAILY 4 days 02/06/22 #12 tabs fluticasone propionate 50 1 spray intranasal BID #16 grams 03/10/22 mcg/actuation nasal spray,suspension (Flonase Allergy Relief) fluconazole 150 mg tablet 150 mg PO Q3D 2 doses #2 tabs 01/16/23 nitrofurantoin 100 mg PO BID 5 days #10 caps 01/16/23 monohydrate/macrocrystals 100 mg capsule (Macrobid) Allergies Allergy/AdvReac Type Severity Reaction Status Date / Time methylphenidate Allergy Unknown Swelling Verified 03/10/22 08:37 [From [facility]ERT[facility]] nickel [NICKEL] Allergy Unknown HIVES Verified 03/10/22 08:37 latex Allergy Unknown Verified 03/10/22 08:37 ibuprofen AdvReac Rash Verified 03/10/22 08:37 Review of Systems 2 Review of Systems: Constitutional: No fever, chills, fatigue, night sweats, weight changes ENT/Mouth: No ear pain, hearing loss, nasal congestion, sinus pain, rhinorrhea, sore throat Eyes: No eye pain, swelling, redness, vision changes, discharge Cardio: No chest pain, palpitations, RUSSO, orthopnea, peripheral edema Pulm: No SOB, cough, sputum, wheezing, dyspnea, hemoptysis GI: No nausea, vomiting, hematemesis, abdominal pain, diarrhea, constipation, hematochezia, melena : No irregular bleeding, dysuria, frequency, urgency, hesitancy, hematuria, flank pain, urinary flow changes, urinary incontinence or retention, +vaginal pruritis, +white vaginal discharge MSK: No back pain, neck pain, joint pain, myalgias Skin: No lesions, rashes Neuro: No weakness, numbness, paresthesias, LOC, dizziness, headache All other systems reviewed and are negative. [facility] Past Medical History Attestation statement: The following information was validated with the patient. Source: old records reviewed and nursing notes reviewed Medical History Asthma delivery delivered Social History Alcohol intake: never Smoked in Last 30 Days: No Use of substances other than those prescribed or required for medical reasons: No Advance Directives: No Advance Directives Information Provided: No Patient : No Sexual orientation: Straight/Heterosexual Physical Exam ED Vital Signs: Vital Signs - 24 hr 01/16/23 13:02 Temperature 97.2 F Pulse Rate 72 Respiratory Rate 18 Blood Pressure 143/68 H Pulse Oximetry 100 Oxygen Delivery Method Room Air BMI result Body Mass Index 29.3 Vital signs stable Const General: cooperative, healthy appearing, comfortable, no acute distress, alert and awake Orientation/consciousness: patient oriented x3 Limitations: no limitations Eyes General: appearance normal, both eyes and all related structures Conjunctivae: conjunctivae normal Sclerae: sclerae normal Pupils: Equal, round and reactive pupils present Neck Neck: Yes normal visual inspection Resp Effort & Inspection: normal respiratory effort Auscultation: clear to auscultation bilaterally Cardio Rate: regular rate Rhythm: regular rhythm GI Inspection: Yes normal to inspection Palpation (GI): Soft to palpation and nontender Other: Pelvic exam deferred per patient. General: Yes no CVA tenderness Back/Spine/Pelvis Back: no CVA tenderness Skin General skin exam: no rashes or lesions noted Neuro General: patient oriented x3, gait normal and moves all extremities Cranial nerves: Yes Equal, round and reactive pupils present Extrem General: Yes normal to inspection, Yes full ROM and Yes capillary refill normal Course Course Course Narrative: RME: 32yo F w/PMHx DM on Trulicity c/o high sugars at home 300 > 188 > 144, states POC's are rapidly fluctuating. Also reports AUGUSTE and vaginal discharge. denies concern for STI, however does have new sexual partner Reports compliance w/meds. POC 158 in triage Labs, UA, STI testing ordered Full HPI, ROS and PE to be performed by primary ED provider. Reevaluation(s) Reevaluation #1: 1540-- CBC without leukocytosis or anemia. Chemistry without acute electrolyte abnormality requiring intervention. Hemoglobin A1c 7.4, WNL for T2DM. Last A1C was 7.8 per patient. Initial POC glucose was noted to be 158 on arrival. Repeat is 115. No concerns for acute DKA. Urine is positive for infection and negative for > will treat with antibiotic. Pelvic exam deferred per patient. Will obtain self vaginal swabs and call patient with any positive results. > symptoms are consistent with a candidal vulvovaginitis vs a sexually transmitted infection. Will send fluconazole to patient's pharmacy for treatment of possible yeast infection. Informed patient that we will call her with any positive results and provide treatment at that time. Declining prophylactic treatment at this time. Additionally I advised patient to follow-up with her primary care provider this week regarding her sugars as her medications may need to be adjusted. Discussed strict return precautions. All questions answered at this time. Patient is agreeable disposition and stable for discharge. Medical Decision Making Medical Decision Making [facility] Narrative: 32 year old female with pmhx significant for asthma and T2DM presents to the ED today for evaluation of vaginal itching/ discharge x2 days. Vital signs are stable. Afebrile. She is nontoxic appearing and in no acute distress. Exam nonfocal. Abdomen is soft, nd/nt, no rebound tenderness or guarding. Normoactive bowel sounds x4. No CVAT bilaterally. Pelvic exam deferred per patient. She has elected for self vaginal swabs to check for sexually transmitted infection. Clinical concern for andidal vulvovaginitis, sexually transmitted infection, urinary tract infection. Concern for hyperglycemia. T2DM. Unlikely DKA, hyperosmolar hyperglycemia. Plan at this time is to obtain basic labs, POC glucose, A1C, STD swabs, UA, re-evaluation. Differential Diagnosis Differential Diagnoses: The differential diagnosis associated with the presentation includes As above. Admission/Observation Not indicated. Lab Data [facility] Lab Attestation statement: I reviewed the patient's lab results. As above. 01/16/23 13:50 01/16/23 13:50 Labs: Lab Results 01/16/23 01/16/23 01/16/23 Range/Units 12:24 13:15 13:50 WBC 5.6 (4.8-10.8) X10*3/uL RBC 4.67 (4.20-5.50) X10*6/uL Hgb 13.6 (12.0-16.0) g/dl Hct 40.9 (37.0-47.0) % MCV 87.6 (80.0-98.0) fL MCH 29.1 (27.0-33.0) pg MCHC 33.3 (31.0-35.0) g/dl RDW 12.6 (11.0-16.0) % Plt Count 286 (160-400) X10*3/uL MPV 9.2 L (9.4-12.3) fL Immature Gran % (Auto) 0.4 (0.0-0.4) % Neut % (Auto) 64.4 (45-73) % Lymph % (Auto) 26.5 (20-40) % [place] % (Auto) 6.9 (2-11) % Eos % (Auto) 1.4 (0-4) % Baso % (Auto) 0.4 (0-2) % Lymph # (Auto) 1.5 (1.2-4.9) X10*3/uL [place] # (Auto) 0.4 (0.1-1.2) X10*3/uL Eos # (Auto) 0.1 (0.0-0.4) X10*3/uL Baso # (Auto) 0.0 (0.0-0.2) X10*3/uL Abs Immat Gran (auto) 0.02 (0.00-0.03) X10*3/uL Absolute Neuts (auto) 3.6 (2.0-8.3) x10*3/uL Absolute Nucleated RBC 0.000 (0.0-0.012) X10*3/uL Nucleated RBC % (auto) 0.0 (0.0-0.2) /100WBC Sodium 139 (135-145) mmol/L Potassium 4.0 (3.3-5.1) mmol/L Chloride 106 (96-108) mmol/L Carbon Dioxide 26 (22-29) mmol/L Anion Gap 11 L (12-20) BUN 8 L (9-16) mg/dL Creatinine 0.71 (0.5-1.4) mg/dL Estim Creat Clear Calc 129.5 Estimated GFR > 60 POC Glucose 158 H (60-115) mg/dL Random Glucose 141 H (60-115) mg/dL Estimat Average Glucose 166 mg/dL Hemoglobin A1c % 7.4 H (<6.0) % Calcium 9.5 (8.4-10.2) mg/dL Magnesium 2.1 (1.6-2.6) mg/dL Total Bilirubin 0.5 (0.0-1.0) mg/dL Direct Bilirubin 0.2 (0.0-0.5) mg/dL AST 15 (5-31) U/L ALT 16 (0-31) U/L Alkaline Phosphatase 77 (39-117) U/L Total Protein 7.0 (6.5-8.0) g/dL Albumin 4.1 (3.5-5.0) g/dL Urine Color Yellow Urine Appearance Cloudy Urine pH 5.5 (5.0-9.0) Ur Specific [place] >= 1.030 H (1.005-1.025) Urine Protein Negative (Neg-Trace) mg/dL Urine Glucose (UA) Negative (Negative) mg/dL Urine Ketones Trace (Negative) mg/dL Urine Blood Negative (Negative) Urine Nitrite Negative (Negative) Ur Leukocyte Esterase Trace H (Negative) Urine RBC 0-2 (0-2) /HPF Urine WBC 0-5 (0-5) /HPF Ur Squamous Epith Cells 11-20 (0-2) /HPF Urine Bacteria 1+ (None Seen) Hyaline Casts 3-5 (0-2) /LPF Urine Test NEGATIVE (NEGATIVE) 01/16/23 Range/Units 14:57 WBC (4.8-10.8) X10*3/uL RBC (4.20-5.50) X10*6/uL Hgb (12.0-16.0) g/dl Hct (37.0-47.0) % MCV (80.0-98.0) fL MCH (27.0-33.0) pg MCHC (31.0-35.0) g/dl RDW (11.0-16.0) % Plt Count (160-400) X10*3/uL MPV (9.4-12.3) fL Immature Gran % (Auto) (0.0-0.4) % Neut % (Auto) (45-73) % Lymph % (Auto) (20-40) % [place] % (Auto) (2-11) % Eos % (Auto) (0-4) % Baso % (Auto) (0-2) % Lymph # (Auto) (1.2-4.9) X10*3/uL [place] # (Auto) (0.1-1.2) X10*3/uL Eos # (Auto) (0.0-0.4) X10*3/uL Baso # (Auto) (0.0-0.2) X10*3/uL Abs Immat Gran (auto) (0.00-0.03) X10*3/uL Absolute Neuts (auto) (2.0-8.3) x10*3/uL Absolute Nucleated RBC (0.0-0.012) X10*3/uL Nucleated RBC % (auto) (0.0-0.2) /100WBC Sodium (135-145) mmol/L Potassium (3.3-5.1) mmol/L Chloride (96-108) mmol/L Carbon Dioxide (22-29) mmol/L Anion Gap (12-20) BUN (9-16) mg/dL Creatinine (0.5-1.4) mg/dL Estim Creat Clear Calc Estimated GFR POC Glucose 115 (60-115) mg/dL Random Glucose (60-115) mg/dL Estimat Average Glucose mg/dL Hemoglobin A1c % (<6.0) % Calcium (8.4-10.2) mg/dL Magnesium (1.6-2.6) mg/dL Total Bilirubin (0.0-1.0) mg/dL Direct Bilirubin (0.0-0.5) mg/dL AST (5-31) U/L ALT (0-31) U/L Alkaline Phosphatase (39-117) U/L Total Protein (6.5-8.0) g/dL Albumin (3.5-5.0) g/dL Urine Color Urine Appearance Urine pH (5.0-9.0) Ur Specific [place] (1.005-1.025) Urine Protein (Neg-Trace) mg/dL Urine Glucose (UA) (Negative) mg/dL Urine Ketones (Negative) mg/dL Urine Blood (Negative) Urine Nitrite (Negative) Ur Leukocyte Esterase (Negative) Urine RBC (0-2) /HPF Urine WBC (0-5) /HPF Ur Squamous Epith Cells (0-2) /HPF Urine Bacteria (None Seen) Hyaline Casts (0-2) /LPF Urine Test (NEGATIVE) External Record Review External record reviewed: Inpatient record Prescription Management I considered prescription management with: Other (Antifungal) Chronic Conditions Patient?s care impacted by: Diabetes and Other (yeast infections) Critical Care Time Critical Care Time Critical Care Time: No Discharge Plan Discharge Clinical Impression: Vaginal itching Patient Disposition: Home, Self-Care Instructions: Fluconazole (By mouth), Sexually Transmitted Diseases (ED), Vaginal Discharge (ED) Additional Instructions: Your blood sugar was within normal limits today. Your labs were reassuring. Your urine was positive for a mild infection. Macrobid is antibiotic that has been sent to your pharmacy. Take this for the next 5 days for suspected urinary tract infection. Do not miss any doses or stop taking this early as this may cause infection to return or worsen. Fluconazole has been sent to your pharmacy. Take 1 dose now. If symptoms do not resolve within 72 hours, take the 2nd dose. You opted for self swab STD testing. We will call you with any positive results annual received treatment at that time. Please follow-up with your primary care provider this week regarding blood sugar fluctuations as they may need to adjust your medications. If symptoms persist or worsen please return to the emergency department. The case of an emergency call 911. Prescriptions: New fluconazole 150 mg tablet 150 mg PO Q3D Qty: 2 0RF Rx Instructions: Take 1 dose now. If symptoms do not resolve within 72 hours take the 2nd dose. nitrofurantoin monohyd/m-cryst [Macrobid] 100 mg capsule 100 mg PO BID 5 Days Qty: 10 0RF Rx Instructions: must administer with a meal/food No Action metronidazole [Flagyl] 500 mg tablet 500 mg PO BID 7 Days Qty: 14 0RF metronidazole [Metrogel Vaginal] 0.75 % gel 1 appful vaginal BEDTIME 5 Days Qty: 70 0RF lidocaine [Lidoderm] 5 % adhesive patch,medicated 1 patch topical DAILY Qty: 15 0RF Rx Instructions: leave on most painful area for up to 12 hrs ibuprofen 600 mg tablet 600 mg PO Q8H PRN (Reason: pain) Qty: 30 0RF ibuprofen 600 mg tablet 600 mg PO Q6H PRN (Reason: pain) Qty: 20 0RF prednisone 20 mg tablet 40 mg PO DAILY 5 Days Qty: 10 0RF cyclobenzaprine 10 mg tablet 10 mg PO TID PRN (Reason: muscle spasm) Qty: 14 0RF dxcjjzfpyi-odmmgfmpvksir-vrmt 50-325-40 mg tablet 1 tab PO Q6H PRN (Reason: pain) Qty: 20 0RF cephalexin 500 mg capsule 500 mg PO TID Qty: 20 0RF miconazole nitrate [Monistat 3] 4 % (200 mg)- 2 % (9 gram) comb pack,prefill appl, cream See Rx Instructions .ROUTE .COMPLEX Qty: 24 0RF Rx Instructions: put 1 supp in vagina at bedtime x 3nites;use cream on area outside vagina 2X/day for up to 7days nitrofurantoin monohyd/m-cryst [Macrobid] 100 mg capsule 100 mg PO Q12H 7 Days Qty: 14 0RF Rx Instructions: must administer with a meal/food ibuprofen 800 mg tablet 800 mg PO Q8H PRN (Reason: pain) Qty: 30 0RF prednisone 20 mg tablet 60 mg PO DAILY 4 Days Qty: 12 0RF fluticasone propionate [Flonase Allergy Relief] 50 mcg/actuation spray,suspension 1 spray intranasal BID Qty: 16 0RF Rx Instructions: administer into each nostril cephalexin 500 mg capsule 500 mg PO BID 7 Days Qty: 14 0RF erythromycin 5 mg/gram (0.5 %) ointment 0.5 inch ophthalmic (eye) BID 7 Days Qty: 3.5 0RF Vitamin Plus Low Iron 27 mg iron- 1 mg tablet 1 tab PO BEDTIME Qty: 30 11RF Rx Instructions: give with food (meal/snack) terconazole 0.4 % cream 1 appful vaginal BEDTIME 7 Days Qty: 45 0RF Referrals: Physician,Unknown J [Primary Care Provider] - Niranjan Morrison MD [Physician] - Interventions: ED Discharge Assessment Last Done: 01/16/23 16:00 Discharge Date/Time: 01/16/23 16:00
[2023-01-16 13:24] LABS: Appearance Urine Cloudy; Color Urine Yellow; Glucose Urine UA Negative (Negative); Leukocyte Esterase Urine Trace (Negative); Nitrite Urine Negative (Negative); PH 5.5 (5.0-9.0); Specific Gravity - Urine >= 1.030 (1.005-1.025); UMIC TRIGGER UACC YES; Urine Blood Negative (Negative); Urine Ketones Trace mg/dL (Negative); Urine Protein Negative (Neg-Trace)
[2023-01-16 13:30] LABS: Bacteria Urine 1+ (None Seen); RBC Urine 0-2 /HPF (0-2); UPreg QC Valid YES; Urine Pregnancy NEGATIVE (NEGATIVE); WBC Urine 0-5 /HPF (0-5)
--- NOTE | 2023-01-16 13:53 | PC.NURSE ---
labs obtained and sent to lab by [facility].
[2023-01-16 14:00] LABS: MANUAL DIFF FLAG NO
[2023-01-16 14:02] LABS: Basophils Percent Auto 0.4 % (0-2); Eosinophils Absolute Auto 0.1 X10*3/uL (0.0-0.4); Eosinophils Percent Auto 1.4 % (0-4); Hematocrit 40.9 % (37.0-47.0); Hemoglobin 13.6 g/dl (12.0-16.0); Imm Gran Abs Auto 0.02 X10*3/uL (0.00-0.03); Imm Gran Pct Auto 0.4 % (0.0-0.4); Lymphocytes Absolute Auto 1.5 X10*3/uL (1.2-4.9); Lymphocytes Percent Auto 26.5 % (20-40); Mean Corpuscular HGB Conc 33.3 g/dl (31.0-35.0); Mean Corpuscular Hemoglobin 29.1 pg (27.0-33.0); Mean Corpuscular Volume 87.6 fL (80.0-98.0); Mean Platelet Volume 9.2 fL (9.4-12.3); Monocytes Absolute Auto 0.4 X10*3/uL (0.1-1.2); Monocytes Percent Auto 6.9 % (2-11); Neutrophils Absolute Auto 3.6 x10*3/uL (2.0-8.3); Neutrophils Percent Auto 64.4 % (45-73); Platelet Count 286 X10*3/uL (160-400); Red Blood Count 4.67 X10*6/uL (4.20-5.50); Red Cell Distribution Width 12.6 % (11.0-16.0); White Blood Count 5.6 X10*3/uL (4.8-10.8)
[2023-01-16 14:11] LABS: Estimated Average Glucose 166 mg/dL; Hemoglobin A1c % 7.4 % (<6.0)
[2023-01-16 14:19] LABS: Alanine Aminotransferase 16 U/L (0-31); Albumin Level 4.1 g/dL (3.5-5.0); Alkaline Phosphatase 77 U/L (39-117); Anion Gap 11 (12-20); Aspartate Amino Transferase 15 U/L (5-31); Bilirubin Direct 0.2 mg/dL (0.0-0.5); Bilirubin Total 0.5 mg/dL (0.0-1.0); Blood Urea Nitrogen 8 mg/dL (9-16); Calcium 9.5 mg/dL (8.4-10.2); Carbon Dioxide 26 mmol/L (22-29); Chloride 106 mmol/L (96-108); Creatinine Clr Calc Pharmacy 129.5; Estimated Glomerular Filt Rate > 60; Glucose Random 141 mg/dL (60-115); Magnesium 2.1 mg/dL (1.6-2.6); Sodium 139 mmol/L (135-145)
--- NOTE | 2023-01-16 14:48 | PC.NURSE ---
a&ox3, vss and up to date at this time. pt denies pain. pt awaiting provider to pelvic exam can be completed. pt states POCs have been fluctuating - states she had a hx of this before and when this happened she had a yeast infection. pt verbalizes slight vaginal itching/dysuria. denies fever/chills. call lizarraga placed within reach.
[2023-01-16 15:03] LABS: Glucose, Whole Blood 115 mg/dL (60-115)
--- NOTE | 2023-01-16 15:35 | PC.NURSE ---
pt denies pelvic exam by provider - tech provided pt w/ swabs so swabs can be obtained by pt herself.
--- NOTE | 2023-01-16 15:57 | PC.NURSE ---
swabs sent to lab by tech - pt provided w/ d/c paperwork.
[2023-01-17 01:26] LABS: CT PCR NOT DETECTED (Not Detect.); NG PCR NOT DETECTED (Not Detect.)
[2023-01-17 08:56] LABS: BV Int Neg Control Negative (Negative); BV Int Pos Control Positive (Positive)
== END 2023-01-16 16:00 | disposition home or self-care (01) ==
PROVIDERS: Physician Assistant; Physician Assistant Medical; Emergency Provider Emergency Medicine
DX: L29.2 Pruritus vulvae (principal); R73.9 Hyperglycemia, unspecified; N89.8 Other specified noninflammatory disorders of vagina; Z79.899 Other long term (current) drug therapy
CPT/HCPCS: 0353U; 36415; 80048; 80076; 81001; 81025; 82947; 83036; 83735; 85025; 87480; 87510; 87660; 99283; 99284

== ENCOUNTER 2023-02-06 10:52 | Emergency (ER) | payer MEDICAID, SELFPAY ==
[2023-02-06 10:57] VITALS: BP 148/88; PULSE 81; O2SAT 96
--- NOTE | 2023-02-06 11:25 | PC.NURSE ---
pt came in via ems and was triaged to [facility], upon this nursing attempting to call patient x3 she was not found in the [facility]. will ask registration to register patient since pt has left without being triaged or seen.
== END 2023-02-06 11:52 | disposition left against medical advice (07) ==
PROVIDERS: Emergency Provider Emergency Medicine
DX: Z53.21 Procedure and treatment not carried out due to patient leaving prior to being seen by health care provider (principal)

== ENCOUNTER 2023-03-17 16:03 | Emergency (ER) | payer MEDICAID, SELFPAY ==
--- NOTE | ~2023-03-17 | XR_ITS ---
EXAMINATION: XR CHEST CLINICAL INFORMATION: Chest pain COMPARISON: Chest 09/16/2022 TECHNIQUE: 2 views of the chest were obtained. 4:55 PM FINDINGS: There is no significant interval change. No significant abnormality is noted involving the heart, lungs, mediastinum, bony thorax or soft tissues. XR/XR chest 2V IMPRESSION: No acute cardiopulmonary disease.
[2023-03-17 16:23] VITALS: BP 129/75; PULSE 97; RESP 20; TEMP 37.3; O2SAT 99; BMI 28.9
--- NOTE | 2023-03-17 16:24 | ED.GENADULT ---
HPI - General Adult General Chief complaint: Nausea/Vomiting/Diarrhea Stated complaint: migrainex5 days,dizziness,vomiting Related Data Previous Rx's Medication Instructions Recorded ibuprofen 600 mg tablet 600 mg PO Q8H PRN pain #30 tabs 01/30/20 lidocaine 5 % topical patch 1 patch topical DAILY #15 ea 01/30/20 (Lidoderm) ibuprofen 600 mg tablet 600 mg PO Q6H PRN pain #20 tabs 02/03/20 vitamin with calcium 1 tab PO BEDTIME #30 tabs 03/10/20 no.72-iron 27 mg-folic acid 1 mg tablet ( Vitamins Plus Low Iron) metronidazole 500 mg tablet 500 mg PO BID 7 days #14 tabs 03/21/20 (Flagyl) metronidazole 0.75 % (37.5 mg/5 1 appful vaginal BEDTIME 5 days 03/25/20 gram) vaginal gel (Metrogel #70 grams Vaginal) prednisone 20 mg tablet 40 mg (2 x 20 mg) PO DAILY 5 days 05/27/20 #10 tabs qedzmgoqja-ztppwdfayysjj-vahldysj 1 tab PO Q6H PRN pain #20 tabs 06/26/20 50 mg-325 mg-40 mg tablet cyclobenzaprine 10 mg tablet 10 mg PO TID PRN muscle spasm #14 06/26/20 tabs cephalexin 500 mg capsule 500 mg PO BID 7 days #14 caps 12/20/20 erythromycin 5 mg/gram (0.5 %) eye 0.5 inch ophthalmic (eye) BID 7 12/20/20 ointment days #3.5 grams terconazole 0.4 % vaginal cream 1 appful vaginal BEDTIME 7 days 03/10/21 #45 grams cephalexin 500 mg capsule 500 mg PO TID #20 caps 08/07/21 miconazole nitrate 4 % (200 mg)-2 See Rx Instructions vaginal 11/15/21 % (9 gram)vaginal,prefill .COMPLEX #24 grams appl,cream (Monistat 3) nitrofurantoin 100 mg PO Q12H 7 days #14 caps 11/18/21 monohydrate/macrocrystals 100 mg capsule (Macrobid) ibuprofen 800 mg tablet 800 mg PO Q8H PRN pain #30 tabs 02/06/22 prednisone 20 mg tablet 60 mg (3 x 20 mg) PO DAILY 4 days 12/17/22 #12 tabs fluticasone propionate 50 1 spray intranasal BID #16 grams 03/10/22 mcg/actuation nasal spray,suspension (Flonase Allergy Relief) fluconazole 150 mg tablet 150 mg PO Q3D 2 doses #2 tabs 01/16/23 nitrofurantoin 100 mg PO BID 5 days #10 caps 01/16/23 monohydrate/macrocrystals 100 mg capsule (Macrobid) metronidazole 500 mg tablet 500 mg PO BID 7 days #14 tabs 01/19/23 Allergies Allergy/AdvReac Type Severity Reaction Status Date / Time methylphenidate Allergy Unknown Swelling Verified 03/10/22 08:37 [From CONCERTA] nickel [NICKEL] Allergy Unknown HIVES Verified 03/10/22 08:37 latex Allergy Unknown Verified 03/10/22 08:37 ibuprofen AdvReac Rash Verified 03/10/22 08:37 PMFSH Past Medical History Medical History Asthma delivery delivered Social History Social History Alcohol intake: never Advance Directives: No Advance Directives Information Provided: No Sexual orientation: Straight/Heterosexual Physical Exam ED Vital Signs: BMI result Body Mass Index 28.9 Course Course Course Narrative: This is an RME: Additional HPI, ROS, PE not included below will be deferred to primary provider. 32 year old female with pmhx significant for asthma and T2DM presents to the ED today presenting to the ER with complaints of headaches, intermittent CP, dizziness, and back pain x 5 days. +nausea/vomiting, diarrhea. LMP 03/07/2022. No urinary symptoms. Plan: Labs, UA, viral swabs, cxr Reevaluation(s) Reevaluation #1: pt left without completing treatment Medical Decision Making Lab Data 03/17/23 16:49 03/17/23 16:49 Labs: Lab Results 03/17/23 03/17/23 03/17/23 Range/Units 16:45 16:49 17:50 WBC 8.9 (4.8-10.8) X10*3/uL RBC 4.67 (4.20-5.50) X10*6/uL Hgb 13.6 (12.0-16.0) g/dl Hct 40.5 (37.0-47.0) % MCV 86.7 (80.0-98.0) fL MCH 29.1 (27.0-33.0) pg MCHC 33.6 (31.0-35.0) g/dl RDW 12.6 (11.0-16.0) % Plt Count 248 (160-400) X10*3/uL MPV 10.0 (9.4-12.3) fL Immature Gran % (Auto) 0.4 (0.0-0.4) % Neut % (Auto) 89.2 H (45-73) % Lymph % (Auto) 6.0 L (20-40) % Hinds % (Auto) 3.6 (2-11) % Eos % (Auto) 0.6 (0-4) % Baso % (Auto) 0.2 (0-2) % Lymph # (Auto) 0.5 L (1.2-4.9) X10*3/uL Hinds # (Auto) 0.3 (0.1-1.2) X10*3/uL Eos # (Auto) 0.1 (0.0-0.4) X10*3/uL Baso # (Auto) 0.0 (0.0-0.2) X10*3/uL Abs Immat Gran (auto) 0.04 H (0.00-0.03) X10*3/uL Absolute Neuts (auto) 7.9 (2.0-8.3) x10*3/uL Absolute Nucleated RBC 0.000 (0.0-0.012) X10*3/uL Nucleated RBC % (auto) 0.0 (0.0-0.2) /100WBC Smear Tech's Comments VERIFIED Sodium 136 (135-145) mmol/L Potassium 4.0 (3.3-5.1) mmol/L Chloride 104 (96-108) mmol/L Carbon Dioxide 23 (22-29) mmol/L Anion Gap 13 (12-20) BUN 12 (9-16) mg/dL Creatinine 0.69 (0.5-1.4) mg/dL Estim Creat Clear Calc 131.2 Estimated GFR > 60 Random Glucose 160 H (60-115) mg/dL Calcium 9.5 (8.4-10.2) mg/dL Magnesium 1.8 (1.6-2.6) mg/dL Total Bilirubin 0.6 (0.0-1.0) mg/dL Direct Bilirubin 0.2 (0.0-0.5) mg/dL AST 16 (5-31) U/L ALT 13 (0-31) U/L Alkaline Phosphatase 81 (39-117) U/L Troponin I High Sens < 2.7 (<3.5-17.0) ng/L Total Protein 7.6 (6.5-8.0) g/dL Albumin 4.3 (3.5-5.0) g/dL Lipase 15 (8-78) U/L COVID-19 (CLAUDIA) Negative (Negative) COVID-19 Clin Com See Note Influenza Type A (LOC) Invalid Negative (Negative) Influenza Type B (LOC) Invalid Negative (Negative) Influenza A & B Note See Note See Note Discharge Plan Discharge Clinical Impression: Headache Patient Disposition: Left W/O Completing Treatment Prescriptions: No Action metronidazole [Flagyl] 500 mg tablet 500 mg PO BID 7 Days Qty: 14 0RF metronidazole [Metrogel Vaginal] 0.75 % gel 1 appful vaginal BEDTIME 5 Days Qty: 70 0RF lidocaine [Lidoderm] 5 % adhesive patch,medicated 1 patch topical DAILY Qty: 15 0RF Rx Instructions: leave on most painful area for up to 12 hrs ibuprofen 600 mg tablet 600 mg PO Q8H PRN (Reason: pain) Qty: 30 0RF ibuprofen 600 mg tablet 600 mg PO Q6H PRN (Reason: pain) Qty: 20 0RF prednisone 20 mg tablet 40 mg PO DAILY 5 Days Qty: 10 0RF cyclobenzaprine 10 mg tablet 10 mg PO TID PRN (Reason: muscle spasm) Qty: 14 0RF wcvfccifyp-agxmuitamapaq-nnwz 50-325-40 mg tablet 1 tab PO Q6H PRN (Reason: pain) Qty: 20 0RF cephalexin 500 mg capsule 500 mg PO TID Qty: 20 0RF miconazole nitrate [Monistat 3] 4 % (200 mg)- 2 % (9 gram) comb pack,prefill appl, cream See Rx Instructions .ROUTE .COMPLEX Qty: 24 0RF Rx Instructions: put 1 supp in vagina at bedtime x 3nites;use cream on area outside vagina 2X/day for up to 7days nitrofurantoin monohyd/m-cryst [Macrobid] 100 mg capsule 100 mg PO Q12H 7 Days Qty: 14 0RF Rx Instructions: must administer with a meal/food ibuprofen 800 mg tablet 800 mg PO Q8H PRN (Reason: pain) Qty: 30 0RF prednisone 20 mg tablet 60 mg PO DAILY 4 Days Qty: 12 0RF fluticasone propionate [Flonase Allergy Relief] 50 mcg/actuation spray,suspension 1 spray intranasal BID Qty: 16 0RF Rx Instructions: administer into each nostril cephalexin 500 mg capsule 500 mg PO BID 7 Days Qty: 14 0RF erythromycin 5 mg/gram (0.5 %) ointment 0.5 inch ophthalmic (eye) BID 7 Days Qty: 3.5 0RF fluconazole 150 mg tablet 150 mg PO Q3D Qty: 2 0RF Rx Instructions: Take 1 dose now. If symptoms do not resolve within 72 hours take the 2nd dose. nitrofurantoin monohyd/m-cryst [Macrobid] 100 mg capsule 100 mg PO BID 5 Days Qty: 10 0RF Rx Instructions: must administer with a meal/food metronidazole 500 mg tablet 500 mg PO BID 7 Days Qty: 14 0RF Vitamin Plus Low Iron 27 mg iron- 1 mg tablet 1 tab PO BEDTIME Qty: 30 11RF Rx Instructions: give with food (meal/snack) terconazole 0.4 % cream 1 appful vaginal BEDTIME 7 Days Qty: 45 0RF Discharge Date/Time: 03/17/23 21:44
--- NOTE | 2023-03-17 16:27 | ECG_ITS ---
Test Reason : CHEST PAIN Blood Pressure : / mmHG Vent. Rate : 096 BPM Atrial Rate : 096 BPM P-R Int : 126 ms QRS Dur : 078 ms QT Int : 326 ms P-R-T Axes : 022 053 031 degrees QTc Int : 411 ms Normal sinus rhythm Normal ECG When compared with ECG of 16-SEP-2022 16:07, Nonspecific T wave abnormality no longer evident in Anterior leads Referred By: Jenniffer Hoover Electronically Signed By:Dallin Hicks
[2023-03-17 17:09] LABS: Basophils Percent Auto 0.2 % (0-2); Eosinophils Absolute Auto 0.1 X10*3/uL (0.0-0.4); Eosinophils Percent Auto 0.6 % (0-4); Hematocrit 40.5 % (37.0-47.0); Hemoglobin 13.6 g/dl (12.0-16.0); Imm Gran Abs Auto 0.04 X10*3/uL (0.00-0.03); Imm Gran Pct Auto 0.4 % (0.0-0.4); Lymphocytes Absolute Auto 0.5 X10*3/uL (1.2-4.9); MANUAL DIFF FLAG SCAN; Mean Corpuscular HGB Conc 33.6 g/dl (31.0-35.0); Mean Corpuscular Hemoglobin 29.1 pg (27.0-33.0); Mean Corpuscular Volume 86.7 fL (80.0-98.0); Monocytes Absolute Auto 0.3 X10*3/uL (0.1-1.2); Monocytes Percent Auto 3.6 % (2-11); Neutrophils Absolute Auto 7.9 x10*3/uL (2.0-8.3); Neutrophils Percent Auto 89.2 % (45-73); PLT CLUMP 1; Red Blood Count 4.67 X10*6/uL (4.20-5.50); Red Cell Distribution Width 12.6 % (11.0-16.0); SCAN SMEAR FLAG 1
[2023-03-17 17:15] LABS: COVID-19 Test Negative (Negative); IDNOW Serial# 08D9AD1C
[2023-03-17 17:19] LABS: Alanine Aminotransferase 13 U/L (0-31); Albumin Level 4.3 g/dL (3.5-5.0); Alkaline Phosphatase 81 U/L (39-117); Anion Gap 13 (12-20); Aspartate Amino Transferase 16 U/L (5-31); Bilirubin Direct 0.2 mg/dL (0.0-0.5); Bilirubin Total 0.6 mg/dL (0.0-1.0); Blood Urea Nitrogen 12 mg/dL (9-16); Calcium 9.5 mg/dL (8.4-10.2); Carbon Dioxide 23 mmol/L (22-29); Chloride 104 mmol/L (96-108); Creatinine Clr Calc Pharmacy 131.2; Estimated Glomerular Filt Rate > 60; Glucose Random 160 mg/dL (60-115); Lipase 15 U/L (8-78); Magnesium 1.8 mg/dL (1.6-2.6); Sodium 136 mmol/L (135-145); Total Protein 7.6 g/dL (6.5-8.0)
[2023-03-17 17:21] LABS: Platelet Count 248 X10*3/uL (160-400)
[2023-03-17 17:22] LABS: SLIDE REVIEW VERIFIED; White Blood Count 8.9 X10*3/uL (4.8-10.8)
[2023-03-17 17:25] LABS: Troponin-I High Sensitivity < 2.7 ng/L (<3.5-17.0)
[2023-03-17 17:39] LABS: IDNOW Serial# 152EDE1D; Influenza A Invalid (Negative); Influenza B2 Invalid (Negative)
[2023-03-17 18:16] LABS: IDNOW Serial# 9DB6401D; Influenza A Negative (Negative); Influenza B2 Negative (Negative)
== END 2023-03-17 21:44 | disposition left against medical advice (07) ==
PROVIDERS: Physician Assistant Medical; Emergency Provider Emergency Medicine
DX: G43.909 Migraine, unspecified, not intractable, without status migrainosus (principal); R07.89 Other chest pain; R11.2 Nausea with vomiting, unspecified; Z79.899 Other long term (current) drug therapy; Z11.52 Encounter for screening for COVID-19
CPT/HCPCS: 36415; 71046; 80048; 80076; 83690; 83735; 84484; 85025; 87502; 87635; 93005; 99283

== ENCOUNTER → 2023-03-17 16:27 | Outpatient (BNV) | payer MEDICAID, SELFPAY | PROVIDERS: Emergency Provider Emergency Medicine; Visit Provider Internal Medicine Cardiovascular Disease | DX: R07.9 Chest pain, unspecified (principal) | CPT/HCPCS: 93010 ==

== ENCOUNTER 2023-12-18 11:35 | Emergency (ER) | payer MEDICAID, SELFPAY ==
--- NOTE | ~2023-12-18 | XR_ITS ---
EXAMINATION: XR SHOULDER, LEFT CLINICAL INFORMATION: Pain, no injury COMPARISON: None available. TECHNIQUE: AP external rotation, Grashey, scapular Y, and axillary views of the left shoulder. FINDINGS: The bones and soft tissues are normal. No fracture. Glenohumeral and acromioclavicular alignment is anatomic with normal joint space. No abnormal soft tissue calcifications. XR/XR shoulder LT min 2V IMPRESSION: Normal left shoulder. Electronically signed by: Rylan Todd DO 12/18/2023 01:09 PM EDT
--- NOTE | 2023-12-18 11:54 | ED.GENADULT ---
HPI - General Adult General Chief complaint: Neck Pain/Injury Stated complaint: l arm/neck pain Time Seen by Provider: 12/18/23 12:48 Source: patient Mode of arrival: ambulatory Limitations: no limitations History of Present Illness HPI narrative: Patient is a 33-year-old female presenting to emergency department for evaluation of pain to her left shoulder. Intermittently radiating to her left neck and down the arm some sensation of numbness. Onset was yesterday. She reports 2 days ago healing her Nexplanon implant removed from the right arm, and the pain began the following day, she is concerned the two are related. No fall trauma or injury to the shoulder. No redness, swelling, Fevers or chills Related Data Previous Rx's ?Medication ?Instructions ?Recorded ibuprofen 600 mg tablet 600 mg PO Q8H PRN pain #30 tabs 01/30/20 lidocaine 5 % topical patch 1 patch topical DAILY #15 ea 01/30/20 (Lidoderm) ibuprofen 600 mg tablet 600 mg PO Q6H PRN pain #20 tabs 02/03/20 vitamin with calcium 1 tab PO BEDTIME #30 tabs 03/10/20 no.72-iron 27 mg-folic acid 1 mg tablet ( Vitamins Plus Low Iron) metronidazole 500 mg tablet 500 mg PO BID 7 days #14 tabs 03/21/20 (Flagyl) metronidazole 0.75 % (37.5 mg/5 1 appful vaginal BEDTIME 5 days 03/25/20 gram) vaginal gel (Metrogel #70 grams Vaginal) prednisone 20 mg tablet 40 mg (2 x 20 mg) PO DAILY 5 days 05/27/20 #10 tabs mgajgnwzam-hjgctxsnvybsz-cbsvygii 1 tab PO Q6H PRN pain #20 tabs 06/26/20 50 mg-325 mg-40 mg tablet cyclobenzaprine 10 mg tablet 10 mg PO TID PRN muscle spasm #14 06/26/20 tabs cephalexin 500 mg capsule 500 mg PO BID 7 days #14 caps 12/20/20 erythromycin 5 mg/gram (0.5 %) eye 0.5 inch ophthalmic (eye) BID 7 12/20/20 ointment days #3.5 grams terconazole 0.4 % vaginal cream 1 appful vaginal BEDTIME 7 days 03/10/21 #45 grams cephalexin 500 mg capsule 500 mg PO TID #20 caps 08/07/21 miconazole nitrate 4 % (200 mg)-2 See Rx Instructions vaginal 11/15/21 % (9 gram)vaginal,prefill .COMPLEX #24 grams appl,cream (Monistat 3) nitrofurantoin 100 mg PO Q12H 7 days #14 caps 11/18/21 monohydrate/macrocrystals 100 mg capsule (Macrobid) ibuprofen 800 mg tablet 800 mg PO Q8H PRN pain #30 tabs 02/06/22 prednisone 20 mg tablet 60 mg (3 x 20 mg) PO DAILY 4 days 02/06/22 #12 tabs fluticasone propionate 50 1 spray intranasal BID #16 grams 03/10/22 mcg/actuation nasal spray,suspension (Flonase Allergy Relief) fluconazole 150 mg tablet 150 mg PO Q3D 2 doses #2 tabs 01/16/23 nitrofurantoin 100 mg PO BID 5 days #10 caps 01/16/23 monohydrate/macrocrystals 100 mg capsule (Macrobid) metronidazole 500 mg tablet 500 mg PO BID 7 days #14 tabs 01/19/23 Allergies Allergy/AdvReac Type Severity Reaction Status Date / Time methylphenidate Allergy Unknown Swelling Verified 12/18/23 11:58 [From CONCERTA] nickel [NICKEL] Allergy Unknown HIVES Verified 12/18/23 11:58 latex Allergy Unknown Verified 12/18/23 11:58 ibuprofen AdvReac Rash Verified 12/18/23 11:58 Review of Systems Review of Systems: Yes all other systems are reviewed and are negative PMFSH Past Medical History Attestation statement: The following information was validated with the patient. Source: old records reviewed Medical History Asthma delivery delivered Social History Social History Alcohol intake: never Advance Directives: No Advance Directives Information Provided: No Do you have a plan to hurt others: No Plan Sexual orientation: Straight/Heterosexual Physical Exam ED Vital Signs: Vital Signs - 24 hr 12/18/23 11:55 Temperature 97.9 F Pulse Rate 82 Respiratory Rate 18 Blood Pressure 125/71 Pulse Oximetry 98 Oxygen Delivery Method Room Air BMI result Body Mass Index 19.6 Appearance: Alert.?Oriented to person, place and time. No acute distress.?Normal affect. ENT: Pharynx normal.?? Neck: Normal inspection.? Neck supple.??Full range of motion. No rigidity. CVS: Heart sounds normal. Normal heart rate and rhythm.? Pulses normal.?? Respiratory: No respiratory distress.? Lung sounds clear to auscultation bilaterally?? Skin: Skin warm and dry.? Normal skin color.? Extremities: No extremity edema erythema or warmth. Full range of motion to the left shoulder.? Neuro: Moves all extremities spontaneously. Sensation intact bilaterally. No focal neuro deficits. Ambulates with normal steady gait. Course Course Course Narrative: This is rapid medical exam exam. deferred additional HPI, ROS, PE to primary provider. 33 yo female with past medical history of asthma, NIDDM here with left shoulder pain with radiation to her left neck and down left arm. since yesterday. Feels this is related to her nexplanon removal on Tuesday. No signs of infection at the site, compartments are soft and compressible. Cannot recall any specific injury. Will obtain x-rays. JOSHUA Copeland APRN Medical Decision Making Medical Decision Making MDM Narrative: Patient is a 33-year-old female presents emergency department for evaluation of atraumatic left shoulder pain as per HPI. Overall appears well, nontoxic, afebrile. No signs of localized infection. History and physical examination consistent with septic arthritis. Neurovascularly intact distally. XR was obtained without evidence of osseous abnormality. Discussed patient pain may be secondary to removal of Nexplanon implant, potentially nerve involvement. Advised ice/heat, NSAIDs, outpatient follow-up with primary care doctor. Differential Diagnosis Differential Diagnoses: The differential diagnosis associated with the presentation includes (See narrative above) Independent Interpretation I performed an independent interpretation of an: Plain X-Ray (No acute fracture) Radiology Impression Discussion of test interpretation with radiology: I have reviewed the radiologist's reading. Radiologist Impression: XR/XR shoulder LT min 2V IMPRESSION: Normal left shoulder. External Record Review External record reviewed: Outpatient record Prescription Management I considered prescription management with: Pain Medication (Tylenol/ibuprofen) Discharge Plan Discharge Clinical Impression: Acute shoulder pain Patient Disposition: Home, Self-Care Prescriptions: No Action metronidazole [Flagyl] 500 mg tablet 500 mg PO BID 7 Days Qty: 14 0RF metronidazole [Metrogel Vaginal] 0.75 % gel 1 appful vaginal BEDTIME 5 Days Qty: 70 0RF lidocaine [Lidoderm] 5 % adhesive patch,medicated 1 patch topical DAILY Qty: 15 0RF Rx Instructions: leave on most painful area for up to 12 hrs ibuprofen 600 mg tablet 600 mg PO Q8H PRN (Reason: pain) Qty: 30 0RF ibuprofen 600 mg tablet 600 mg PO Q6H PRN (Reason: pain) Qty: 20 0RF prednisone 20 mg tablet 40 mg PO DAILY 5 Days Qty: 10 0RF cyclobenzaprine 10 mg tablet 10 mg PO TID PRN (Reason: muscle spasm) Qty: 14 0RF ggywerlvuu-julllylobovhx-iamm 50-325-40 mg tablet 1 tab PO Q6H PRN (Reason: pain) Qty: 20 0RF cephalexin 500 mg capsule 500 mg PO TID Qty: 20 0RF miconazole nitrate [Monistat 3] 4 % (200 mg)- 2 % (9 gram) comb pack,prefill appl, cream See Rx Instructions .ROUTE .COMPLEX Qty: 24 0RF Rx Instructions: put 1 supp in vagina at bedtime x 3nites;use cream on area outside vagina 2X/day for up to 7days nitrofurantoin monohyd/m-cryst [Macrobid] 100 mg capsule 100 mg PO Q12H 7 Days Qty: 14 0RF Rx Instructions: must administer with a meal/food ibuprofen 800 mg tablet 800 mg PO Q8H PRN (Reason: pain) Qty: 30 0RF prednisone 20 mg tablet 60 mg PO DAILY 4 Days Qty: 12 0RF fluticasone propionate [Flonase Allergy Relief] 50 mcg/actuation spray,suspension 1 spray intranasal BID Qty: 16 0RF Rx Instructions: administer into each nostril cephalexin 500 mg capsule 500 mg PO BID 7 Days Qty: 14 0RF erythromycin 5 mg/gram (0.5 %) ointment 0.5 inch ophthalmic (eye) BID 7 Days Qty: 3.5 0RF fluconazole 150 mg tablet 150 mg PO Q3D Qty: 2 0RF Rx Instructions: Take 1 dose now. If symptoms do not resolve within 72 hours take the 2nd dose. nitrofurantoin monohyd/m-cryst [Macrobid] 100 mg capsule 100 mg PO BID 5 Days Qty: 10 0RF Rx Instructions: must administer with a meal/food metronidazole 500 mg tablet 500 mg PO BID 7 Days Qty: 14 0RF Vitamin Plus Low Iron 27 mg iron- 1 mg tablet 1 tab PO BEDTIME Qty: 30 11RF Rx Instructions: give with food (meal/snack) terconazole 0.4 % cream 1 appful vaginal BEDTIME 7 Days Qty: 45 0RF Discharge Date/Time: 12/18/23 14:00 Print Language: [place]ian
[2023-12-18 11:55] VITALS: BP 125/71; PULSE 82; RESP 18; TEMP 36.6; O2SAT 98; BMI 19.6
--- NOTE | 2023-12-18 13:57 | PC.NURSE ---
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
== END 2023-12-18 14:00 | disposition home or self-care (01) ==
PROVIDERS: Emergency Provider Emergency Medicine
DX: M25.512 Pain in left shoulder (principal); M54.2 Cervicalgia; R20.0 Anesthesia of skin; Z79.899 Other long term (current) drug therapy
CPT/HCPCS: 73030; 99281; 99283

== ENCOUNTER 2024-03-13 06:33 | Emergency (ER) | payer MEDICAID, SELFPAY ==
--- NOTE | 2024-03-13 | ECG_ITS ---
Test Reason : CP Blood Pressure : */* mmHG Vent. Rate : 75 BPM Atrial Rate : 75 BPM P-R Int : 138 ms QRS Dur : 78 ms QT Int : 370 ms P-R-T Axes : 66 68 65 degrees QTcB Int : 413 ms Sinus rhythm with marked sinus arrhythmia Otherwise normal ECG When compared with ECG of 17-Mar-2023 16:40, No significant change was found Referred By: Generic ED Physician Electronically Signed By: SHORTY CUEVA MD
--- NOTE | ~2024-03-13 | XR_ITS ---
EXAMINATION: XR CHEST CLINICAL INFORMATION: chest pain COMPARISON: 03/17/2023. TECHNIQUE: Frontal view of the chest was obtained. FINDINGS: No significant abnormality is noted involving the heart, lungs, mediastinum, bony thorax or soft tissues. XR/XR chest 1V IMPRESSION: Normal chest. Electronically signed by: Lobo Amaya MD 03/13/2024 08:11 AM [facility] [place]
[2024-03-13 06:39] VITALS: BP 122/66; BP 143/67; PULSE 70; PULSE 87; RESP 17; TEMP 36.9; O2SAT 97; BMI 33.9
[2024-03-13 06:54] LABS: MANUAL DIFF FLAG NO
[2024-03-13 06:56] VITALS: BP 143/67; PULSE 90; RESP 16; TEMP 36.9; O2SAT 98
[2024-03-13 06:57] LABS: Basophils Percent Auto 0.5 % (0-2); Eosinophils Absolute Auto 0.1 X10*3/uL (0.0-0.4); Eosinophils Percent Auto 1.2 % (0-4); Hematocrit 38.9 % (37.0-47.0); Imm Gran Abs Auto 0.01 X10*3/uL (0.00-0.03); Imm Gran Pct Auto 0.2 % (0.0-0.4); Lymphocytes Percent Auto 22.6 % (20-40); Mean Corpuscular HGB Conc 33.4 g/dl (31.0-35.0); Mean Corpuscular Hemoglobin 28.5 pg (27.0-33.0); Mean Corpuscular Volume 85.3 fL (80.0-98.0); Mean Platelet Volume 8.9 fL (9.4-12.3); Monocytes Absolute Auto 0.6 X10*3/uL (0.1-1.2); Monocytes Percent Auto 12.7 % (2-11); Neutrophils Absolute Auto 2.7 x10*3/uL (2.0-8.3); Neutrophils Percent Auto 62.8 % (45-73); Platelet Count 246 X10*3/uL (160-400); Red Blood Count 4.56 X10*6/uL (4.20-5.50); Red Cell Distribution Width 12.7 % (11.0-16.0); White Blood Count 4.3 X10*3/uL (4.8-10.8)
[2024-03-13 07:01] VITALS: PULSE 84
[2024-03-13 07:19] LABS: Alanine Aminotransferase 24 U/L (0-31); Albumin Level 4.1 g/dL (3.5-5.0); Alkaline Phosphatase 89 U/L (39-117); Anion Gap 12 (12-20); Aspartate Amino Transferase 27 U/L (5-31); Bilirubin Total 0.3 mg/dL (0.0-1.0); Blood Urea Nitrogen 12 mg/dL (9-16); Calcium 8.7 mg/dL (8.4-10.2); Carbon Dioxide 23 mmol/L (22-29); Chloride 107 mmol/L (96-108); Creatinine Clr Calc Pharmacy 142.9; Estimated Glomerular Filt Rate > 60; Glucose Random 161 mg/dL (60-115); Potassium 4.3 mmol/L (3.3-5.1); Sodium 138 mmol/L (135-145); Total Protein 7.5 g/dL (6.5-8.0)
[2024-03-13 07:24] LABS: Troponin-I High Sensitivity < 2.7 ng/L (<3.5-17.0)
--- NOTE | 2024-03-13 07:24 | ED.CHESTPAIN ---
HPI - Chest Pain General Chief Complaint: Chest Pain Stated Complaint: CHEST PAIN Time Seen by Provider: 03/13/24 07:06 Source: patient, family and EMS Mode of arrival: EMS Limitations: no limitations History of Present Illness ED Provider: DR. Toledo HPI narrative: 33-year-old female came in for multiple complaints. 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 Patient is also complaining of lower back pain radiating to the left lower extremity had a history of sciatica on the same side in the past no urinary or stool incontinence, no numbness, no weakness patient is still able to ambulate. Patient is requesting to check for . Related Data Previous Rx's ?Medication ?Instructions ?Recorded ibuprofen 600 mg tablet 600 mg PO Q8H PRN pain #30 tabs 01/30/20 lidocaine 5 % topical patch 1 patch topical DAILY #15 ea 01/30/20 (Lidoderm) ibuprofen 600 mg tablet 600 mg PO Q6H PRN pain #20 tabs 02/03/20 vitamin with calcium 1 tab PO BEDTIME #30 tabs 03/10/20 no.72-iron 27 mg-folic acid 1 mg tablet ( Vitamins Plus Low Iron) metronidazole 500 mg tablet 500 mg PO BID 7 days #14 tabs 03/21/20 (Flagyl) metronidazole 0.75 % (37.5 mg/5 1 appful vaginal BEDTIME 5 days 03/25/20 gram) vaginal gel (Metrogel #70 grams Vaginal) prednisone 20 mg tablet 40 mg (2 x 20 mg) PO DAILY 5 days 05/27/20 #10 tabs fgyrkqlber-hmrvopgxqkmun-iomugjuc 1 tab PO Q6H PRN pain #20 tabs 06/26/20 50 mg-325 mg-40 mg tablet cyclobenzaprine 10 mg tablet 10 mg PO TID PRN muscle spasm #14 06/26/20 tabs cephalexin 500 mg capsule 500 mg PO BID 7 days #14 caps 12/20/20 erythromycin 5 mg/gram (0.5 %) eye 0.5 inch ophthalmic (eye) BID 7 12/20/20 ointment days #3.5 grams terconazole 0.4 % vaginal cream 1 appful vaginal BEDTIME 7 days 03/10/21 #45 grams cephalexin 500 mg capsule 500 mg PO TID #20 caps 08/07/21 miconazole nitrate 4 % (200 mg)-2 See Rx Instructions vaginal 11/15/21 % (9 gram)vaginal,prefill .COMPLEX #24 grams appl,cream (Monistat 3) nitrofurantoin 100 mg PO Q12H 7 days #14 caps 11/18/21 monohydrate/macrocrystals 100 mg capsule (Macrobid) ibuprofen 800 mg tablet 800 mg PO Q8H PRN pain #30 tabs 02/06/22 prednisone 20 mg tablet 60 mg (3 x 20 mg) PO DAILY 4 days 02/06/22 #12 tabs fluticasone propionate 50 1 spray intranasal BID #16 grams 03/10/22 mcg/actuation nasal spray,suspension (Flonase Allergy Relief) fluconazole 150 mg tablet 150 mg PO Q3D 2 doses #2 tabs 01/16/23 nitrofurantoin 100 mg PO BID 5 days #10 caps 01/16/23 monohydrate/macrocrystals 100 mg capsule (Macrobid) metronidazole 500 mg tablet 500 mg PO BID 7 days #14 tabs 01/19/23 amoxicillin 500 mg-potassium 1 tab PO BID #14 tabs 03/13/24 clavulanate 125 mg tablet (Augmentin) ibuprofen 800 mg tablet 800 mg PO Q8H PRN pain #20 tabs 03/13/24 Allergies Allergy/AdvReac Type Severity Reaction Status Date / Time methylphenidate Allergy Unknown Swelling Verified 03/13/24 06:42 [From CONCERTA] nickel [NICKEL] Allergy Unknown HIVES Verified 03/13/24 06:42 latex Allergy Unknown Verified 03/13/24 06:42 ibuprofen AdvReac Rash Verified 03/13/24 06:42 Review of Systems Review of Systems: All other systems are reviewed and are negative Constitutional: Reports as per HPI and Reports no additional constitutional complaints Eyes: Reports as per HPI and Reports no additional eye complaints Reports system reviewed and no additional complaints, except as documented Cardiovascular: Reports as per HPI and Reports no additional cardiovascular complaints Respiratory: Reports as per HPI and Reports no additional respiratory complaints Gastrointestinal: Reports as per HPI and Reports no additional gastrointestinal complaints Genitourinary: Reports no additional female genitourinary complaints Musculoskeletal: Reports no additional musculoskeletal complaints Skin/Breast: Reports system reviewed and no additional complaints, except as docu Psychiatric: Reports no additional psychiatric complaints Endocrine: Reports no additional endocrine complaints Hematologic/Lymphatic: Reports no additional hematologic/lymphatic complaints Allergic/Immunologic: Reports no additional allergic/immunologic complaints Reports system reviewed and no additional complaints, except as documented and Reports Abnormal speech present [facility] Past Medical History Medical History Asthma delivery delivered Social History Social History Alcohol intake: never Smoked in Last 30 Days: No Use of substances other than those prescribed or required for medical reasons: No Advance Directives: No Advance Directives Information Provided: No Do you have a plan to hurt others: No Plan Patient : No Sexual orientation: Straight/Heterosexual Physical Exam Vital Signs: Vital Signs: Last Vital Signs Temp 98.5 F 03/13/24 06:56 Pulse 83 03/13/24 08:36 Resp 17 03/13/24 08:36 BP 115/68 03/13/24 08:36 Pulse Ox 98 03/13/24 08:36 O2 Del Method Room Air 03/13/24 08:36 BMI result Body Mass Index 33.9 Vital signs have been reviewed and appear to be correct. Blood pressure elevated. Heart rate normal. Respiratory rate normal. Temperature normal. Oxygen saturation normal. Appearance: Alert. Oriented X3. No acute distress. Head: Normal external exam. Normocephalic. Atraumatic. No Lemon signs noted. No raccoon eyes noted Eyes: PERRLA. EOMI. Conjunctiva and sclera normal. Eyelids normal. ENT: TM's Normal. Pharynx normal. Bilateral frontal and maxillary sinus tenderness on percussion. Uvula midline. Moist mucous membranes. No trismus noted. No drooling noted. No muffled voice noted. Neck: Normal inspection. Neck supple. FROM. No adenopathy. Thyroid Normal. No meningeal signs. No neck mass noted. CVS: Normal heart rate and rhythm. Heart sound normal. No murmurs noted. Pulses normal throughout. Respiratory: No respiratory distress. Painless inspiration. Breath sounds normal. No wheezes/rales/rhonchi noted. Diffuse chest wall tenderness, no step-off, no deformity. No accessory muscle usage noted or decreased air movement noted. Abdomen: Soft and nontender. Bowel sounds normal in all 4 quadrants. No distention noted. No organomegaly noted. No visible injury noted. Back: No CVA tenderness. Full range of motion noted. Skin: Skin warm and dry. Normal skin color. Normal skin turgor. No rashes/lesions/lacerations noted. Extremities: No lower extremity edema. Extremities exhibit normal range of motion. Extremities nontender. Neuro: Mental status: Normal attention, orientation, memory, and affect. Cranial nerves: Pupils are equal, round and reactive to light, EOMI, visual benites are fall, face is symmetric, facial sensations are normal. Motor examination normal muscle tone, strength to 4 extremities. DTR are +2, planter's are flexor. Sensory exam; normal coordination, no ataxia, gait stable. Cerebellar exam: Kxvfvq-mg-ppcw and rakx-mc-xxhi is normal. Extrapyramidal system: No tremors, no rigidity with normal facial expressions. Pronator drift not present. Patient is able to ambulate on both heels and toes. Perianal sensation is intact. Course Reevaluation(s) Reevaluation #1: 33-year-old female came in with chest pain coughing, movement, and taking a deep breath. With a tender chest wall negative troponin unremarkable EKG. Sciatica without neurological deficit improved with Toradol injection in the ED. Positive for influenza A. Time: 08:39 Medications Administered Discontinued Medications Generic Name Dose Route Start Last Admin Trade Name Freq PRN Reason Stop Dose Admin Ketorolac Tromethamine 15 mg 03/13/24 07:37 03/13/24 07:41 Ketorolac Tromethamine 15 Mg/Ml Vial IVPUSH 03/13/24 07:38 15 mg ONCE ONE Administration Medical Decision Making Differential Diagnosis Differential Diagnoses: The differential diagnosis associated with the presentation includes (ACS, pneumonia, pneumothorax, pleural effusion, sinusitis, viral upper respiratory infection, chest wall pain, costochondritis, , severe anemia, electrolyte derangement.) Admission/Observation Consideration of admission/observation: Escalation of care including admission/observation considered Lab Data MDM Lab Attestation statement: I reviewed the patient's lab results. 03/13/24 06:50 03/13/24 06:50 Labs: Lab Results 03/13/24 03/13/24 Range/Units 06:49 06:50 WBC 4.3 L (4.8-10.8) X10*3/uL RBC 4.56 (4.20-5.50) X10*6/uL Hgb 13.0 (12.0-16.0) g/dl Hct 38.9 (37.0-47.0) % MCV 85.3 (80.0-98.0) fL MCH 28.5 (27.0-33.0) pg MCHC 33.4 (31.0-35.0) g/dl RDW 12.7 (11.0-16.0) % Plt Count 246 (160-400) X10*3/uL MPV 8.9 L (9.4-12.3) fL Immature Gran % (Auto) 0.2 (0.0-0.4) % Neut % (Auto) 62.8 (45-73) % Lymph % (Auto) 22.6 (20-40) % [place] % (Auto) 12.7 H (2-11) % Eos % (Auto) 1.2 (0-4) % Baso % (Auto) 0.5 (0-2) % Lymph # (Auto) 1.0 L (1.2-4.9) X10*3/uL [place] # (Auto) 0.6 (0.1-1.2) X10*3/uL Eos # (Auto) 0.1 (0.0-0.4) X10*3/uL Baso # (Auto) 0.0 (0.0-0.2) X10*3/uL Abs Immat Gran (auto) 0.01 (0.00-0.03) X10*3/uL Absolute Neuts (auto) 2.7 (2.0-8.3) x10*3/uL Absolute Nucleated RBC 0.000 (0.0-0.012) X10*3/uL Nucleated RBC % (auto) 0.0 (0.0-0.2) /100WBC Sodium 138 (135-145) mmol/L Potassium 4.3 (3.3-5.1) mmol/L Chloride 107 (96-108) mmol/L Carbon Dioxide 23 (22-29) mmol/L Anion Gap 12 (12-20) BUN 12 (9-16) mg/dL Creatinine 0.68 (0.5-1.4) mg/dL Estim Creat Clear Calc 142.9 Estimated GFR > 60 Random Glucose 161 H (60-115) mg/dL Calcium 8.7 D (8.4-10.2) mg/dL Total Bilirubin 0.3 (0.0-1.0) mg/dL AST 27 (5-31) U/L ALT 24 (0-31) U/L Alkaline Phosphatase 89 (39-117) U/L Troponin I High Sens < 2.7 (<3.5-17.0) ng/L Total Protein 7.5 (6.5-8.0) g/dL Albumin 4.1 (3.5-5.0) g/dL Beta HCG, Quant < 2 mIU/mL Influenza Type A (PCR) POSITIVE A (Negative) Influenza Type B (PCR) NEGATIVE (Negative) RSV RNA Qual (PCR) NEGATIVE (Negative) SARS-CoV-2 RNA (RT-PCR) NEGATIVE (Negative) Independent Interpretation I performed an independent interpretation of an: EKG (Normal sinus rhythm at 75 beats per minutes, normal axis deviation, normal intervals, no ST-T changes. No change from previous EKG.) and Plain X-Ray (Chest: No acute intrathoracic pathology.) Radiology Impression Discussion of test interpretation with radiology: I have reviewed the radiologist's reading. Discharge Plan Discharge Clinical Impression: Sciatica of left side, Chest wall pain, Sinusitis, Influenza A Patient Disposition: Home, Self-Care Instructions: Sinusitis (ED), Sciatica (ED) Additional Instructions: Wear a face mask at all times. Frequent hand washing. Self quarantine for 2 days. Use a social distancing. Prescriptions: New amoxicillin-pot clavulanate [Augmentin] 500-125 mg tablet 1 tab PO BID Qty: 14 0RF ibuprofen 800 mg tablet 800 mg PO Q8H PRN (Reason: pain) Qty: 20 0RF No Action metronidazole [Flagyl] 500 mg tablet 500 mg PO BID 7 Days Qty: 14 0RF metronidazole [Metrogel Vaginal] 0.75 % gel 1 appful vaginal BEDTIME 5 Days Qty: 70 0RF lidocaine [Lidoderm] 5 % adhesive patch,medicated 1 patch topical DAILY Qty: 15 0RF Rx Instructions: leave on most painful area for up to 12 hrs ibuprofen 600 mg tablet 600 mg PO Q8H PRN (Reason: pain) Qty: 30 0RF ibuprofen 600 mg tablet 600 mg PO Q6H PRN (Reason: pain) Qty: 20 0RF prednisone 20 mg tablet 40 mg PO DAILY 5 Days Qty: 10 0RF cyclobenzaprine 10 mg tablet 10 mg PO TID PRN (Reason: muscle spasm) Qty: 14 0RF nvjrnxfjbu-komiwgwfptlaz-pspt 50-325-40 mg tablet 1 tab PO Q6H PRN (Reason: pain) Qty: 20 0RF cephalexin 500 mg capsule 500 mg PO TID Qty: 20 0RF miconazole nitrate [Monistat 3] 4 % (200 mg)- 2 % (9 gram) comb pack,prefill appl, cream See Rx Instructions .ROUTE .COMPLEX Qty: 24 0RF Rx Instructions: put 1 supp in vagina at bedtime x 3nites;use cream on area outside vagina 2X/day for up to 7days nitrofurantoin monohyd/m-cryst [Macrobid] 100 mg capsule 100 mg PO Q12H 7 Days Qty: 14 0RF Rx Instructions: must administer with a meal/food ibuprofen 800 mg tablet 800 mg PO Q8H PRN (Reason: pain) Qty: 30 0RF prednisone 20 mg tablet 60 mg PO DAILY 4 Days Qty: 12 0RF fluticasone propionate [Flonase Allergy Relief] 50 mcg/actuation spray,suspension 1 spray intranasal BID Qty: 16 0RF Rx Instructions: administer into each nostril cephalexin 500 mg capsule 500 mg PO BID 7 Days Qty: 14 0RF erythromycin 5 mg/gram (0.5 %) ointment 0.5 inch ophthalmic (eye) BID 7 Days Qty: 3.5 0RF fluconazole 150 mg tablet 150 mg PO Q3D Qty: 2 0RF Rx Instructions: Take 1 dose now. If symptoms do not resolve within 72 hours take the 2nd dose. nitrofurantoin monohyd/m-cryst [Macrobid] 100 mg capsule 100 mg PO BID 5 Days Qty: 10 0RF Rx Instructions: must administer with a meal/food metronidazole 500 mg tablet 500 mg PO BID 7 Days Qty: 14 0RF Vitamin Plus Low Iron 27 mg iron- 1 mg tablet 1 tab PO BEDTIME Qty: 30 11RF Rx Instructions: give with food (meal/snack) terconazole 0.4 % cream 1 appful vaginal BEDTIME 7 Days Qty: 45 0RF Print Language: French
[2024-03-13 07:38] LABS: Influenza A PCR POSITIVE (Negative); Influenza B PCR NEGATIVE (Negative); Resp Syncy Virus RNA Qual PCR NEGATIVE (Negative); SARS COV2 PCR INHOUSE NEGATIVE (Negative)
[2024-03-13] MEDS: Ketorolac Tromethamine 15 MG/ML VIAL IVPUSH (07:41)
--- NOTE | 2024-03-13 07:45 | PC.NURSE ---
pt is alert and oriented, skin pwd, respirations even and unlabored, ls clear, pt reports left lower back pain that radiates to the hip/headache/cough/congestion/chest tightness
[2024-03-13 07:56] LABS: HCG Quantitative < 2 mIU/mL
[2024-03-13 08:36] VITALS: BP 115/68; PULSE 83; RESP 17; TEMP 36.8; O2SAT 98
[2024-03-13 09:14] VITALS: BP 115/68; PULSE 83; RESP 17; TEMP 36.8; O2SAT 98
== END 2024-03-13 09:15 | disposition home or self-care (01) ==
PROVIDERS: Emergency Provider Emergency Medicine
DX: J10.1 Influenza due to other identified influenza virus with other respiratory manifestations (principal); M54.32 Sciatica, left side; J32.9 Chronic sinusitis, unspecified; R07.89 Other chest pain; R05.9 Cough, unspecified; Z03.818 Encounter for observation for suspected exposure to other biological agents ruled out; Z79.899 Other long term (current) drug therapy
CPT/HCPCS: 0241U; 71045; 80053; 84484; 84702; 85025; 93005; 96374; 99284; 99285; J1885

== ENCOUNTER → 2024-03-13 06:45 | Outpatient (BNV) | payer MEDICAID, SELFPAY | PROVIDERS: Emergency Provider Emergency Medicine; Visit Provider Internal Medicine Cardiovascular Disease | DX: R07.9 Chest pain, unspecified (principal) | CPT/HCPCS: 93010 ==

== ENCOUNTER → 2024-03-13 07:50 | Outpatient (BNV) | payer MEDICAID, SELFPAY | PROVIDERS: Emergency Provider Emergency Medicine; Visit Provider Radiology Diagnostic Radiology | DX: R07.9 Chest pain, unspecified (principal) | CPT/HCPCS: 71045 ==

== ENCOUNTER 2024-07-26 08:43 | Emergency (ER) | payer MEDICAID, SELFPAY ==
[2024-07-26 08:56] VITALS: BP 114/64; PULSE 84; RESP 18; TEMP 36.6; O2SAT 99
[2024-07-26 09:30] LABS: Appearance Urine Cloudy; Color Urine Yellow; Glucose Urine UA >=1000 mg/dL (Negative); Leukocyte Esterase Urine Negative (Negative); Nitrite Urine Negative (Negative); PH 5.5 (5.0-9.0); Specific Gravity - Urine >= 1.030 (1.005-1.025); UMIC TRIGGER UACC YES; Urine Blood Negative (Negative); Urine Ketones Trace mg/dL (Negative); Urine Protein Negative (Neg-Trace)
[2024-07-26 09:32] LABS: Hematocrit 33.5 % (37.0-47.0); Hemoglobin 11.3 g/dl (12.0-16.0); Mean Corpuscular HGB Conc 33.7 g/dl (31.0-35.0); Mean Corpuscular Hemoglobin 26.6 pg (27.0-33.0); Mean Corpuscular Volume 78.8 fL (80.0-98.0); Mean Platelet Volume 8.9 fL (9.4-12.3); Platelet Count 281 X10*3/uL (160-400); Red Blood Count 4.25 X10*6/uL (4.20-5.50); Red Cell Distribution Width 14.6 % (11.0-16.0); White Blood Count 4.7 X10*3/uL (4.8-10.8)
[2024-07-26 09:38] LABS: Bacteria Urine 4+ (None Seen); RBC Urine 0-2 /HPF (0-2); Squamous Epithelial Cell Urine >20 /HPF (0-2); UACC Culture Trigger YES
[2024-07-26 09:52] LABS: Alanine Aminotransferase 22 U/L (0-31); Alkaline Phosphatase 68 U/L (39-117); Anion Gap 8 (12-20); Aspartate Amino Transferase 37 U/L (5-31); Bilirubin Total 0.3 mg/dL (0.0-1.0); Blood Urea Nitrogen 16 mg/dL (9-16); Calcium 8.7 mg/dL (8.4-10.2); Carbon Dioxide 23 mmol/L (22-29); Chloride 110 mmol/L (96-108); Creatinine Clr Calc Pharmacy 148.5; Estimated Glomerular Filt Rate > 60; Glucose Random 215 mg/dL (60-115); HCG Quantitative 65 mIU/mL; Potassium 3.8 mmol/L (3.3-5.1); Sodium 137 mmol/L (135-145); Total Protein 6.6 g/dL (6.5-8.0)
--- NOTE | 2024-07-26 10:55 | ED_ITS ---
HPI - Headache General Chief Complaint: Headache Stated Complaint: Migraine 4 days Time Seen by Provider: 07/26/24 10:55 Source: patient Mode of arrival: ambulatory Limitations: no limitations History of Present Illness ED Provider: Dr. Garo Sanders HPI Narrative: 34-year-old female with a history of migraine headaches, diabetes mellitus who presents emergency department for evaluation of a migraine headache for 3-4 days. The patient states that she has had a constant, pressure-like pain on the right side of her head that radiates to the back of her head times 3-4 days. She states the headache is consistent with a migraine syndrome. She has had associated photophobia and nausea. The patient has been taking Tylenol and ibuprofen with no relief of her pain. The patient states she has had increased frequency and increased thirst but her glucose have been in the normal range. She believes that she has a yeast infection since she has a whitish discharge in his had similar discharge in the past. The patient is a , she states she has been trying to get . she states that she did 2 home test and there was a faintly positive line.Her last menstrual period was 06/28/2024, which would make her proximally 4 weeks by dates. Related Data Previous Rx's ?Medication ?Instructions ?Recorded ibuprofen 600 mg tablet 600 mg PO Q8H PRN pain #30 tabs 01/30/20 lidocaine 5 % topical patch 1 patch topical DAILY #15 ea 01/30/20 (Lidoderm) ibuprofen 600 mg tablet 600 mg PO Q6H PRN pain #20 tabs 02/03/20 vitamin with calcium 1 tab PO BEDTIME #30 tabs 03/10/20 no.72-iron 27 mg-folic acid 1 mg tablet ( Vitamins Plus Low Iron) metronidazole 500 mg tablet 500 mg PO BID 7 days #14 tabs 03/21/20 (Flagyl) metronidazole 0.75 % (37.5 mg/5 1 appful vaginal BEDTIME 5 days 03/25/20 gram) vaginal gel (Metrogel #70 grams Vaginal) prednisone 20 mg tablet 40 mg (2 x 20 mg) PO DAILY 5 days 05/27/20 #10 tabs apizflclyn-kkhgjhwbnxues-qrfjeiji 1 tab PO Q6H PRN pain #20 tabs 06/26/20 50 mg-325 mg-40 mg tablet cyclobenzaprine 10 mg tablet 10 mg PO TID PRN muscle spasm #14 06/26/20 tabs cephalexin 500 mg capsule 500 mg PO BID 7 days #14 caps 12/20/20 erythromycin 5 mg/gram (0.5 %) eye 0.5 inch ophthalmic (eye) BID 7 12/20/20 ointment days #3.5 grams terconazole 0.4 % vaginal cream 1 appful vaginal BEDTIME 7 days 03/10/21 #45 grams cephalexin 500 mg capsule 500 mg PO TID #20 caps 08/07/21 miconazole nitrate 4 % (200 mg)-2 See Rx Instructions vaginal 11/15/21 % (9 gram)vaginal,prefill .COMPLEX #24 grams appl,cream (Monistat 3) nitrofurantoin 100 mg PO Q12H 7 days #14 caps 11/18/21 monohydrate/macrocrystals 100 mg capsule (Macrobid) ibuprofen 800 mg tablet 800 mg PO Q8H PRN pain #30 tabs 02/06/22 prednisone 20 mg tablet 60 mg (3 x 20 mg) PO DAILY 4 days 02/06/22 #12 tabs fluticasone propionate 50 1 spray intranasal BID #16 grams 03/10/22 mcg/actuation nasal spray,suspension (Flonase Allergy Relief) fluconazole 150 mg tablet 150 mg PO Q3D 2 doses #2 tabs 01/16/23 nitrofurantoin 100 mg PO BID 5 days #10 caps 01/16/23 monohydrate/macrocrystals 100 mg capsule (Macrobid) metronidazole 500 mg tablet 500 mg PO BID 7 days #14 tabs 01/19/23 amoxicillin 500 mg-potassium 1 tab PO BID #14 tabs 03/13/24 clavulanate 125 mg tablet (Augmentin) ibuprofen 800 mg tablet 800 mg PO Q8H PRN pain #20 tabs 03/13/24 metoclopramide HCl 10 mg tablet 10 mg PO Q6H PRN headache,nausea 07/26/24 (Reglan) or vomiting #14 tabs Allergies Allergy/AdvReac Type Severity Reaction Status Date / Time methylphenidate Allergy Unknown Swelling Verified 07/26/24 09:05 [From [facility]] nickel [NICKEL] Allergy Unknown HIVES Verified 07/26/24 09:05 latex Allergy Unknown Verified 07/26/24 09:05 ibuprofen AdvReac Rash Verified 07/26/24 09:05 Review of Systems 2 Review of Systems: Yes all other systems are reviewed and are negative [facility] Past Medical History [facility] Narrative: Social history: She denies tobacco and alcohol use. Medical History Asthma delivery delivered Social History Social History Alcohol intake: never Advance Directives: No Advance Directives Information Provided: No Sexual orientation: Straight/Heterosexual Physical Exam 2 Vital Signs: Vital Signs: Last Vital Signs Temp 97.4 F 07/26/24 11:26 Pulse 74 07/26/24 11:26 Resp 18 07/26/24 11:26 BP 115/62 07/26/24 11:26 Pulse Ox 99 07/26/24 11:26 O2 Del Method Room Air 07/26/24 11:26 BMI result Body Mass Index 30.0 Vital signs were normal Exam: General: Awake, alert in no distress Head: Normocephalic, atraumatic EENT: PERRL, Lids normal, sclera normal, conjunctiva normal, nose normal , ears normal, throat without erythema or exudates Neck: Supple, no adenopathy Lung: breath sounds symmetric, no wheezing, rales or rhonchi Chest: symmetric movement, nontender Heart: regular rate and rhythm, normal S1, S2 no murmurs or rubs Abdomen: soft, non-tender, nondistended, normal bowel sounds Back: no vertebral tenderness, no CVAT Extremities: no deformities, moves all extremities symmetrically Neuro: Awake, alert, oriented, normal speech, cranial nerves intact, moves all extremities symmetrically Psych: Pleasant, cooperative Medications Administered Discontinued Medications Generic Name Dose Route Start Last Admin Trade Name Freq PRN Reason Stop Dose Admin Acetaminophen 975 mg 07/26/24 11:21 07/26/24 11:37 Acetaminophen 325 Mg Tablet PO 07/26/24 11:22 975 mg ONCE STA Administration Metoclopramide HCl 10 mg 07/26/24 11:21 07/26/24 11:37 Metoclopramide Hcl 10 Mg Tablet PO 07/26/24 11:22 10 mg ONCE STA Administration Medical Decision Making Medical Decision Making [facility] Narrative: 34-year-old female with a history of migraine headaches, diabetes mellitus who presents emergency department for evaluation of a migraine headache for 3-4 days. The patient states that she has had a constant, pressure-like pain on the right side of her head that radiates to the back of her head times 3-4 days. She states the headache is consistent with a migraine syndrome. She has had associated photophobia and nausea. The patient has been taking Tylenol and ibuprofen with no relief of her pain. The patient states she has had increased frequency and increased thirst but her glucose have been in the normal range. She believes that she has a yeast infection since she has a whitish discharge in his had similar discharge in the past. The patient is a , she states she has been trying to get . she states that she did 2 home test and there was a faintly positive line.Her last menstrual period was 06/28/2024, which would make her proximally 4 weeks by dates.Physical examination was unremarkable. Differential diagnosis: Includes but is not limited to : Migraine headache, nonspecific headache, early , anemia, electrolyte abnormalities Course: 11:36 my interpretation patient's laboratory evaluation as follows: Microcytic anemia with an H&H of 11.3 and 33.5 with an MCV of 78.8. Chloride elevated 110. Glucose elevated to 15. AST elevated 31. Quantitative beta-hCG was positive at 65. Urinalysis was positive for glucose. Microscopic revealed 0-2 RBCs, 6-10 WBCs, 4+ bacteria, greater than 20 squamous cells -this is a non clean catch specimen, the patient does not have dysuria or urgency so I doubt that she has a urinary tract infection at this time. Patient's headaches are consistent with a migraine syndrome. She states she can not take Benadryl since this makes her itchy. She was given extra-strength Tylenol 975 mg and Reglan 10 mg orally here in the emergency department. Patient was given prescription for Reglan 10 mg every 6 hours to be taken with Tylenol 1000 mg every 6 hours as needed for migraine headaches. The patient does have a positive quadrant date of the beta-hCG which could make her proximally 3-4 weeks which would correlate with her last menstrual period however I did tell her that it is possible that she may be someone that has a low hemoglobin level and this may be a false positive . I told her that she should assume that she is and that she should have a repeat quantitative beta-hCG in 2 weeks by her PCP. She is already taking vitamins And I told her to continue these medications. The patient does have a microcytic anemia and I advised to take an iron soaked my daily and she should discuss which would be appropriate with her pharmacist. She was given printed and verbal instructions and discharged home. Admission/Observation Consideration of admission/observation: Escalation of care including admission/observation considered ( Yes) Lab Data MDM Lab Attestation statement: I reviewed the patient's lab results. 07/26/24 09:22 07/26/24 09:22 Labs: Lab Results 07/26/24 Range/Units 09:22 WBC 4.7 L (4.8-10.8) X10*3/uL RBC 4.25 (4.20-5.50) X10*6/uL Hgb 11.3 L (12.0-16.0) g/dl Hct 33.5 L (37.0-47.0) % MCV 78.8 L (80.0-98.0) fL MCH 26.6 L (27.0-33.0) pg MCHC 33.7 (31.0-35.0) g/dl RDW 14.6 (11.0-16.0) % Plt Count 281 (160-400) X10*3/uL MPV 8.9 L (9.4-12.3) fL Absolute Nucleated RBC 0.000 (0.0-0.012) X10*3/uL Nucleated RBC % (auto) 0.0 (0.0-0.2) /100WBC Sodium 137 (135-145) mmol/L Potassium 3.8 (3.3-5.1) mmol/L Chloride 110 H (96-108) mmol/L Carbon Dioxide 23 (22-29) mmol/L Anion Gap 8 L (12-20) BUN 16 (9-16) mg/dL Creatinine 0.61 (0.5-1.4) mg/dL Estim Creat Clear Calc 148.5 Estimated GFR > 60 Random Glucose 215 H (60-115) mg/dL Calcium 8.7 (8.4-10.2) mg/dL Total Bilirubin 0.3 (0.0-1.0) mg/dL AST 37 H (5-31) U/L ALT 22 (0-31) U/L Alkaline Phosphatase 68 (39-117) U/L Total Protein 6.6 (6.5-8.0) g/dL Albumin 4.0 (3.5-5.0) g/dL Beta HCG, Quant 65 mIU/mL Urine Color Yellow Urine Appearance Cloudy Urine pH 5.5 (5.0-9.0) Ur Specific Mackey >= 1.030 H (1.005-1.025) Urine Protein Negative (Neg-Trace) mg/dL Urine Glucose (UA) >=1000 H (Negative) mg/dL Urine Ketones Trace (Negative) mg/dL Urine Blood Negative (Negative) Urine Nitrite Negative (Negative) Ur Leukocyte Esterase Negative (Negative) Urine RBC 0-2 (0-2) /HPF Urine WBC 6-10 H (0-5) /HPF Ur Squamous Epith Cells >20 (0-2) /HPF Urine Bacteria 4+ (None Seen) Hyaline Casts 3-5 (0-2) /LPF Urine Yeast Present Prescription Management I considered prescription management with: Other ( anti migraines/nausea medication: Reglan) Chronic Conditions Patient?s care impacted by: Diabetes and Other ( migraine headaches) Discharge Plan Discharge Clinical Impression: Migraine headache, Elevated serum hCG Patient Disposition: Home, Self-Care Additional Instructions: Your blood work revealed a mild microcytic anemia with a hemoglobin and hematocrit of 11.3 and 33.5. This suggests that you have low iron. Continue taking your vitamins but ask the pharmacist to recommend a an iron supplement that you can take once a day for the next 1-3 months to increase the amount of iron in your blood. Your symptoms are consistent with a migraine.I want you to take the following two medications together every 6 hours as needed for headache, nausea or vomiting. Reglan (metoclopramide) in 10 mg, 1 pill Extra-strength Tylenol 500 mg pills, 2 pills After you take these medications, lie down in a dark quiet room and try to fall asleep. Your blood test (quantitative beta-hCG) was detectable at 65.? A quantitative beta-hCG between 9 and 130 could be consistent with being 3-4 weeks . However sometimes women can have a small amount of hemoglobin /HCG and this can be normal. This test is sometimes very difficult to interpret early in but I would assume that your and suggest that you get a repeat quantitative beta-hCG in 2 weeks . If this numbers going up then you are . If it stays the same or is not detectable then you may be someone that just has a small amount of beta-hCG in your blood. Diflucan ( fluconazole) is not safe in . I recommend that you use Monistat 3 or Monistat 7 for your yeast infection. Increase the amount of fluid that you drinking to prevent dehydration. Please return to the emergency department if your symptoms get worse or if you develop any symptoms that are concerning to you. Prescriptions: New metoclopramide HCl [Reglan] 10 mg tablet 10 mg PO Q6H PRN (Reason: headache,nausea or vomiting) Qty: 14 0RF No Action metronidazole [Flagyl] 500 mg tablet 500 mg PO BID 7 Days Qty: 14 0RF metronidazole [Metrogel Vaginal] 0.75 % gel 1 appful vaginal BEDTIME 5 Days Qty: 70 0RF lidocaine [Lidoderm] 5 % adhesive patch,medicated 1 patch topical DAILY Qty: 15 0RF Rx Instructions: leave on most painful area for up to 12 hrs ibuprofen 600 mg tablet 600 mg PO Q8H PRN (Reason: pain) Qty: 30 0RF ibuprofen 600 mg tablet 600 mg PO Q6H PRN (Reason: pain) Qty: 20 0RF prednisone 20 mg tablet 40 mg PO DAILY 5 Days Qty: 10 0RF cyclobenzaprine 10 mg tablet 10 mg PO TID PRN (Reason: muscle spasm) Qty: 14 0RF xnjnuxcupe-zbhioxnhzwfqo-sfdw 50-325-40 mg tablet 1 tab PO Q6H PRN (Reason: pain) Qty: 20 0RF cephalexin 500 mg capsule 500 mg PO TID Qty: 20 0RF miconazole nitrate [Monistat 3] 4 % (200 mg)- 2 % (9 gram) comb pack,prefill appl, cream See Rx Instructions .ROUTE .COMPLEX Qty: 24 0RF Rx Instructions: put 1 supp in vagina at bedtime x 3nites;use cream on area outside vagina 2X/day for up to 7days nitrofurantoin monohyd/m-cryst [Macrobid] 100 mg capsule 100 mg PO Q12H 7 Days Qty: 14 0RF Rx Instructions: must administer with a meal/food ibuprofen 800 mg tablet 800 mg PO Q8H PRN (Reason: pain) Qty: 30 0RF prednisone 20 mg tablet 60 mg PO DAILY 4 Days Qty: 12 0RF fluticasone propionate [Flonase Allergy Relief] 50 mcg/actuation spray,suspension 1 spray intranasal BID Qty: 16 0RF Rx Instructions: administer into each nostril cephalexin 500 mg capsule 500 mg PO BID 7 Days Qty: 14 0RF erythromycin 5 mg/gram (0.5 %) ointment 0.5 inch ophthalmic (eye) BID 7 Days Qty: 3.5 0RF amoxicillin-pot clavulanate [Augmentin] 500-125 mg tablet 1 tab PO BID Qty: 14 0RF ibuprofen 800 mg tablet 800 mg PO Q8H PRN (Reason: pain) Qty: 20 0RF fluconazole 150 mg tablet 150 mg PO Q3D Qty: 2 0RF Rx Instructions: Take 1 dose now. If symptoms do not resolve within 72 hours take the 2nd dose. nitrofurantoin monohyd/m-cryst [Macrobid] 100 mg capsule 100 mg PO BID 5 Days Qty: 10 0RF Rx Instructions: must administer with a meal/food metronidazole 500 mg tablet 500 mg PO BID 7 Days Qty: 14 0RF Vitamin Plus Low Iron 27 mg iron- 1 mg tablet 1 tab PO BEDTIME Qty: 30 11RF Rx Instructions: give with food (meal/snack) terconazole 0.4 % cream 1 appful vaginal BEDTIME 7 Days Qty: 45 0RF Print Language: Georgian
[2024-07-26 11:26] VITALS: BP 115/62; PULSE 74; RESP 18; TEMP 36.3; O2SAT 99
[2024-07-26] MEDS: Acetaminophen 325 MG TABLET 975 MG PO (11:37)
[2024-07-26] MEDS: Metoclopramide HCl 10 MG TABLET PO (11:37)
[2024-07-26 11:40] VITALS: BP 115/62; PULSE 74; RESP 18; TEMP 36.3; O2SAT 99
== END 2024-07-26 11:41 | disposition home or self-care (01) ==
PROVIDERS: Emergency Provider Emergency Medicine Emergency Medical Services; PCP Dentist General Practice
DX: G43.909 Migraine, unspecified, not intractable, without status migrainosus (principal); D64.9 Anemia, unspecified; Z79.899 Other long term (current) drug therapy
CPT/HCPCS: 36415; 80053; 81001; 84702; 85027; 87086; 87147; 99283

== ENCOUNTER 2024-08-06 13:14 | Emergency (ER) | payer MEDICAID, SELFPAY ==
--- NOTE | ~2024-08-06 | US_ITS ---
EXAMINATION: US OBSTETRICAL ULTRASOUND CLINICAL INFORMATION: Increasing beta-hCG, COMPARISON: None available. LMP: 06/30/2024. Gestational age by maternal dates is 5 weeks 2 days. Estimated date of delivery by maternal dates is 04/06/2025. TECHNIQUE: Transabdominal and transvaginal ultrasound was performed with grayscale and color Doppler imaging FINDINGS: There is an echogenic saclike structure in the uterus likely with a double decidual sign. There is questionable internal content that could represent an early yolk sac visualization. No parts are documented. Intrauterine sac measured 10 x 4 x 8 mm with a mean sac diameter of 7 mm with estimated ultrasound age of 5 weeks 2 days. MATERNAL ADNEXA: The right maternal ovary measures 2.0 x 2.9 x 1.9 cm. The left maternal ovary measures 3.0 x 2.7 x 2.3 cm cm. There is a hypoechoic cyst measuring 2.2 x 1.8 x 1.7 cm. There is no significant maternal adnexal mass. No maternal pelvic ascites. US/US OB pelvic and transvaginal IMPRESSION: 1. Single intrauterine gestation with estimated gestational age of 5 weeks 2 days. Possible early visualization of a yolk sac, but no parts were documented. 2. Estimated date of delivery is 04/06/2025. Electronically signed by: Charlie Trivedi MD 08/06/2024 04:44 PM EDT
[2024-08-06 13:28] VITALS: BP 119/42; PULSE 88; RESP 18; TEMP 36.7; O2SAT 99; BMI 30.1
--- NOTE | 2024-08-06 13:30 | ED.GENADULT ---
HPI - General Adult General Chief complaint: General Medical Stated complaint: pain in head and heels Time Seen by Provider: 08/06/24 14:55 Source: patient, RN notes reviewed and old records reviewed Mode of arrival: ambulatory History of Present Illness ED Provider: Leesa Ramos PA-C HPI narrative: 34-year-old female with a past medical history of migraine headache, diabetes, presenting to the ED complaining of intermittent migraine headache with associated nausea and intermittent blurry vision x few weeks. Also reports left heel pain, worse when 1st waking in the morning, and concern for possible . LMP 06/28/24 - Admits to taking multiple home tests which has been positive & to slightly positive hCG recently. Admits she was seen and treated in our ED on 07/26/2024 for similar symptoms, prescribed Reglan/Tylenol which she has been taking without much relief. Reports some abdominal pressure/discomfort. Patient reports she is currently on Trulicity and Jardiance however has been noncompliant with medications since 07/26/2024 due to possible . Denies vomiting, diarrhea/constipation, dysuria/hematuria, vaginal bleeding/discharge, heel injury/trauma. Headache not maximal at onset Related Data Previous Rx's ?Medication ?Instructions ?Recorded ibuprofen 600 mg tablet 600 mg PO Q8H PRN pain #30 tabs 01/30/20 lidocaine 5 % topical patch 1 patch topical DAILY #15 ea 01/30/20 (Lidoderm) ibuprofen 600 mg tablet 600 mg PO Q6H PRN pain #20 tabs 02/03/20 vitamin with calcium 1 tab PO BEDTIME #30 tabs 03/10/20 no.72-iron 27 mg-folic acid 1 mg tablet ( Vitamins Plus Low Iron) metronidazole 500 mg tablet 500 mg PO BID 7 days #14 tabs 03/21/20 (Flagyl) metronidazole 0.75 % (37.5 mg/5 1 appful vaginal BEDTIME 5 days 03/25/20 gram) vaginal gel (Metrogel #70 grams Vaginal) prednisone 20 mg tablet 40 mg (2 x 20 mg) PO DAILY 5 days 05/27/20 #10 tabs qrpumjnkvk-pzvpeuibzncft-aajrviun 1 tab PO Q6H PRN pain #20 tabs 06/26/20 50 mg-325 mg-40 mg tablet cyclobenzaprine 10 mg tablet 10 mg PO TID PRN muscle spasm #14 06/26/20 tabs cephalexin 500 mg capsule 500 mg PO BID 7 days #14 caps 12/20/20 erythromycin 5 mg/gram (0.5 %) eye 0.5 inch ophthalmic (eye) BID 7 12/20/20 ointment days #3.5 grams terconazole 0.4 % vaginal cream 1 appful vaginal BEDTIME 7 days 03/10/21 #45 grams cephalexin 500 mg capsule 500 mg PO TID #20 caps 08/07/21 miconazole nitrate 4 % (200 mg)-2 See Rx Instructions vaginal 11/15/21 % (9 gram)vaginal,prefill .COMPLEX #24 grams appl,cream (Monistat 3) nitrofurantoin 100 mg PO Q12H 7 days #14 caps 11/18/21 monohydrate/macrocrystals 100 mg capsule (Macrobid) ibuprofen 800 mg tablet 800 mg PO Q8H PRN pain #30 tabs 02/06/22 prednisone 20 mg tablet 60 mg (3 x 20 mg) PO DAILY 4 days 02/06/22 #12 tabs fluticasone propionate 50 1 spray intranasal BID #16 grams 03/10/22 mcg/actuation nasal spray,suspension (Flonase Allergy Relief) fluconazole 150 mg tablet 150 mg PO Q3D 2 doses #2 tabs 01/16/23 nitrofurantoin 100 mg PO BID 5 days #10 caps 01/16/23 monohydrate/macrocrystals 100 mg capsule (Macrobid) metronidazole 500 mg tablet 500 mg PO BID 7 days #14 tabs 01/19/23 amoxicillin 500 mg-potassium 1 tab PO BID #14 tabs 03/13/24 clavulanate 125 mg tablet (Augmentin) ibuprofen 800 mg tablet 800 mg PO Q8H PRN pain #20 tabs 03/13/24 metoclopramide HCl 10 mg tablet 10 mg PO Q6H PRN headache,nausea 07/26/24 (Reglan) or vomiting #14 tabs Allergies Allergy/AdvReac Type Severity Reaction Status Date / Time methylphenidate Allergy Unknown Swelling Verified 08/06/24 13:31 [From [facility]CERTA] nickel [NICKEL] Allergy Unknown HIVES Verified 08/06/24 13:31 latex Allergy Unknown Verified 08/06/24 13:31 ibuprofen AdvReac Rash Verified 08/06/24 13:31 Review of Systems Review of Systems: Yes all other systems are reviewed and are negative Constitutional: Constitutional: Reports as per HPI Neurologic: Denies Abnormal speech present [facility] Past Medical History Attestation statement: The following information was validated with the patient. Source: old records reviewed Medical History Asthma delivery delivered Social History Social History Alcohol intake: never Sexual orientation: Straight/Heterosexual Physical Exam ED Vital Signs: Vital Signs - 24 hr 08/06/24 13:28 08/06/24 16:28 Temperature 98.0 F Pulse Rate 88 66 Respiratory Rate 18 18 Blood Pressure 119/42 L 109/45 L Pulse Oximetry 99 98 Oxygen Delivery Method Room Air Room Air BMI result Body Mass Index 30.1 Const General: cooperative, healthy appearing, no acute distress, alert and awake Orientation/consciousness: patient oriented x3 Limitations: no limitations HENMT Head: Yes normal to inspection and Yes atraumatic Ears: hearing grossly normal bilaterally General nose exam: Normal external nose present Face and sinus: Yes normal facial exam Eyes General: appearance normal, both eyes and all related structures Pupils: Equal, round and reactive pupils present EOM: EOMs intact bilaterally Neck Neck: Yes normal visual inspection and Yes no meningeal signs Resp Effort & Inspection: normal respiratory effort and no respiratory distress Cardio Rate: regular rate Heart sounds: S1 normal heart sound present and S2 normal heart sound present GI Inspection: Yes normal to inspection Palpation (GI): Soft to palpation, nontender, no guarding and not rigid Skin Rashes: no rashes Wounds: no wounds Neuro General: patient oriented x3, tone normal, moves all extremities, no meningeal signs, no focal motor deficits and CN's II-XI intact bilaterally Cranial nerves: Yes CN's II-XII intact bilaterally and Yes Equal, round and reactive pupils present Cognition (Neuro): normal cognition Speech: No Abnormal speech present Gait exam (Neuro): Normal gait present Motor exam (neuro): 5/5 motor strength present throughout Extrem Other: Left foot/heel without appreciable deformity. No erythema or warmth. + reproducible tenderness to heal and plantar fascia. Knee/tib-fib/ankle and dorsal aspect of foot nontender. Neurovascularly intact. No crepitus. No streaking. No open wounds. No Achilles tenderness or pitting edema. No calf tenderness General: Yes normal to inspection Course Course Course Narrative: RME performed by Ayde Lino PA-C. Patient is a 34 year old assigned female at presenting to the emergency department with heel pain and a headache. Patient states that she was told to stop taking medications for her diabetes because her hcg was somewhat elevated. Detailed physical exam and review of systems are deferred to the bookbinding machine operator. Labs ordered. Patient placed back in the waiting room pending room availability and results. -1619--labs reassuring. Glucose 214. HCG 3510 > appropriately rising based on patient's LMP -COVID/flu/RSV negative US OB pelvic and transvaginal IMPRESSION: 1. Single intrauterine gestation with estimated gestational age of 5 weeks 2 days. Possible early visualization of a yolk sac, but no parts were documented. 2. Estimated date of delivery is 04/06/2025. > 1736--informed by patient's nurse that she could no longer wait in the ED anymore and left. Medications Administered Discontinued Medications Generic Name Dose Route Start Last Admin Trade Name Stephanie PRN Reason Stop Dose Admin Acetaminophen 650 mg 08/06/24 15:23 08/06/24 15:52 Acetaminophen 325 Mg Tablet PO 08/06/24 15:24 650 mg ONCE ONE Administration Diphenhydramine HCl 12.5 mg 08/06/24 15:23 08/06/24 15:53 Diphenhydramine Hcl 50 Mg/Ml Vial IVPUSH 08/06/24 15:24 12.5 mg ONCE ONE Administration Sodium Chloride 1,000 mls @ 999 mls/hr 08/06/24 15:30 08/06/24 15:53 Ns IV 08/06/24 16:30 999 mls/hr .Q1H1M [place] Administration Metoclopramide HCl 10 mg 08/06/24 15:23 08/06/24 15:53 Metoclopramide Hcl 10 Mg/2 Ml Vial IVPUSH 08/06/24 15:24 10 mg ONCE ONE Administration Medical Decision Making Medical Decision Making MDM Narrative: 34-year-old female with a past medical history of migraine headache, diabetes, presenting to the ED complaining of intermittent migraine headache with associated nausea and intermittent blurry vision x few weeks. Also reports left heel pain, worse when 1st waking in the morning, and concern for possible . On exam vital signs stable, NAD, nontoxic appearing, no focal neuro deficits, abdomen is soft and nontender, heel with reproducible tenderness/plantar fascia tenderness without overlying cellulitis or deformity. Concern for migraine headache vs viral illness. Low suspicion for meningitis/encephalitis, CVA/TIA or CVT or SAH. Concern for plantar fasciitis vs sprain/strain vs tendinopathy. Low suspicion for fracture. No evidence of septic joint/arthritis. Unlikely DVT/compartment syndrome. Concern for early . Rule out ectopic. Plan: Labs, UA, IVF, symptomatic remedies, ultrasound, re-evaluate Please refer to course for remaining clinical decision making, interpretation of labs/imaging results, and discussions with consultants and/or family members. Differential Diagnosis Differential Diagnoses: The differential diagnosis associated with the presentation includes As above Admission/Observation Consideration of admission/observation: Escalation of care including admission/observation considered Lab Data MDM Lab Attestation statement: I reviewed the patient's lab results. 08/06/24 13:40 08/06/24 13:40 Labs: Lab Results 08/06/24 08/06/24 08/06/24 Range/Units 13:34 13:40 16:30 WBC 6.6 (4.8-10.8) X10*3/uL RBC 4.39 (4.20-5.50) X10*6/uL Hgb 11.8 L (12.0-16.0) g/dl Hct 35.5 L (37.0-47.0) % MCV 80.9 (80.0-98.0) fL MCH 26.9 L (27.0-33.0) pg MCHC 33.2 (31.0-35.0) g/dl RDW 17.0 H (11.0-16.0) % Plt Count 385 D (160-400) X10*3/uL MPV 8.6 L (9.4-12.3) fL Immature Gran % (Auto) 0.5 H (0.0-0.4) % Neut % (Auto) 59.7 (45-73) % Lymph % (Auto) 30.9 (20-40) % [place] % (Auto) 7.4 (2-11) % Eos % (Auto) 0.9 (0-4) % Baso % (Auto) 0.6 (0-2) % Lymph # (Auto) 2.0 (1.2-4.9) X10*3/uL [place] # (Auto) 0.5 (0.1-1.2) X10*3/uL Eos # (Auto) 0.1 (0.0-0.4) X10*3/uL Baso # (Auto) 0.0 (0.0-0.2) X10*3/uL Abs Immat Gran (auto) 0.03 (0.00-0.03) X10*3/uL Absolute Neuts (auto) 3.9 (2.0-8.3) x10*3/uL Absolute Nucleated RBC 0.000 (0.0-0.012) X10*3/uL Nucleated RBC % (auto) 0.0 (0.0-0.2) /100WBC Sodium 138 (135-145) mmol/L Potassium 3.8 (3.3-5.1) mmol/L Chloride 107 (96-108) mmol/L Carbon Dioxide 23 (22-29) mmol/L Anion Gap 12 (12-20) BUN 13 (9-16) mg/dL Creatinine 0.60 (0.5-1.4) mg/dL Estim Creat Clear Calc 151.1 Estimated GFR > 60 POC Glucose 206 H (60-115) mg/dL Random Glucose 214 H (60-115) mg/dL Calcium 9.5 D (8.4-10.2) mg/dL Magnesium 1.8 (1.6-2.6) mg/dL Total Bilirubin 0.3 (0.0-1.0) mg/dL AST 19 (5-31) U/L ALT 18 (0-31) U/L Alkaline Phosphatase 67 (39-117) U/L Total Protein 7.0 (6.5-8.0) g/dL Albumin 4.2 (3.5-5.0) g/dL Beta HCG, Quant 3510 mIU/mL Influenza Type A (PCR) NEGATIVE (Negative) Influenza Type B (PCR) NEGATIVE (Negative) RSV RNA Qual (PCR) NEGATIVE (Negative) SARS-CoV-2 RNA (RT-PCR) NEGATIVE (Negative) Independent Interpretation I performed an independent interpretation of an: Ultrasound Radiology Impression Discussion of test interpretation with radiology: I have reviewed the radiologist's reading. External Record Review External record reviewed: Inpatient record, Office record, Outpatient record, Prior outpatient labs, Prior outpatient radiology, Primary care record and Outside ED record Tests considered The following testing was considered but not selected: As above Prescription Management I considered prescription management with: Pain Medication Chronic Conditions Patient?s care impacted by: Other Social Determinants Patient?s care significantly limited by Social Determinants of Health including: Other Social Determinant of Health Discharge Plan Discharge Clinical Impression: Migraine, at early stage, Plantar fasciitis Patient Disposition: Left W/O Completing Treatment Prescriptions: No Action metronidazole [Flagyl] 500 mg tablet 500 mg PO BID 7 Days Qty: 14 0RF metronidazole [Metrogel Vaginal] 0.75 % gel 1 appful vaginal BEDTIME 5 Days Qty: 70 0RF lidocaine [Lidoderm] 5 % adhesive patch,medicated 1 patch topical DAILY Qty: 15 0RF Rx Instructions: leave on most painful area for up to 12 hrs ibuprofen 600 mg tablet 600 mg PO Q8H PRN (Reason: pain) Qty: 30 0RF ibuprofen 600 mg tablet 600 mg PO Q6H PRN (Reason: pain) Qty: 20 0RF prednisone 20 mg tablet 40 mg PO DAILY 5 Days Qty: 10 0RF cyclobenzaprine 10 mg tablet 10 mg PO TID PRN (Reason: muscle spasm) Qty: 14 0RF fxlixfbxbt-ipsaeeubxwtmt-qykr 50-325-40 mg tablet 1 tab PO Q6H PRN (Reason: pain) Qty: 20 0RF cephalexin 500 mg capsule 500 mg PO TID Qty: 20 0RF miconazole nitrate [Monistat 3] 4 % (200 mg)- 2 % (9 gram) comb pack,prefill appl, cream See Rx Instructions .ROUTE .COMPLEX Qty: 24 0RF Rx Instructions: put 1 supp in vagina at bedtime x 3nites;use cream on area outside vagina 2X/day for up to 7days nitrofurantoin monohyd/m-cryst [Macrobid] 100 mg capsule 100 mg PO Q12H 7 Days Qty: 14 0RF Rx Instructions: must administer with a meal/food ibuprofen 800 mg tablet 800 mg PO Q8H PRN (Reason: pain) Qty: 30 0RF prednisone 20 mg tablet 60 mg PO DAILY 4 Days Qty: 12 0RF fluticasone propionate [Flonase Allergy Relief] 50 mcg/actuation spray,suspension 1 spray intranasal BID Qty: 16 0RF Rx Instructions: administer into each nostril cephalexin 500 mg capsule 500 mg PO BID 7 Days Qty: 14 0RF erythromycin 5 mg/gram (0.5 %) ointment 0.5 inch ophthalmic (eye) BID 7 Days Qty: 3.5 0RF amoxicillin-pot clavulanate [Augmentin] 500-125 mg tablet 1 tab PO BID Qty: 14 0RF ibuprofen 800 mg tablet 800 mg PO Q8H PRN (Reason: pain) Qty: 20 0RF fluconazole 150 mg tablet 150 mg PO Q3D Qty: 2 0RF Rx Instructions: Take 1 dose now. If symptoms do not resolve within 72 hours take the 2nd dose. nitrofurantoin monohyd/m-cryst [Macrobid] 100 mg capsule 100 mg PO BID 5 Days Qty: 10 0RF Rx Instructions: must administer with a meal/food metronidazole 500 mg tablet 500 mg PO BID 7 Days Qty: 14 0RF metoclopramide HCl [Reglan] 10 mg tablet 10 mg PO Q6H PRN (Reason: headache,nausea or vomiting) Qty: 14 0RF Vitamin Plus Low Iron 27 mg iron- 1 mg tablet 1 tab PO BEDTIME Qty: 30 11RF Rx Instructions: give with food (meal/snack) terconazole 0.4 % cream 1 appful vaginal BEDTIME 7 Days Qty: 45 0RF Discharge Date/Time: 08/06/24 17:44
[2024-08-06 13:38] LABS: Glucose, Whole Blood 206 mg/dL (60-115)
[2024-08-06 13:43] LABS: MANUAL DIFF FLAG NO
[2024-08-06 13:45] LABS: Basophils Percent Auto 0.6 % (0-2); Eosinophils Absolute Auto 0.1 X10*3/uL (0.0-0.4); Eosinophils Percent Auto 0.9 % (0-4); Hematocrit 35.5 % (37.0-47.0); Hemoglobin 11.8 g/dl (12.0-16.0); Imm Gran Abs Auto 0.03 X10*3/uL (0.00-0.03); Imm Gran Pct Auto 0.5 % (0.0-0.4); Lymphocytes Percent Auto 30.9 % (20-40); Mean Corpuscular HGB Conc 33.2 g/dl (31.0-35.0); Mean Corpuscular Hemoglobin 26.9 pg (27.0-33.0); Mean Corpuscular Volume 80.9 fL (80.0-98.0); Mean Platelet Volume 8.6 fL (9.4-12.3); Monocytes Absolute Auto 0.5 X10*3/uL (0.1-1.2); Monocytes Percent Auto 7.4 % (2-11); Neutrophils Absolute Auto 3.9 x10*3/uL (2.0-8.3); Neutrophils Percent Auto 59.7 % (45-73); Platelet Count 385 X10*3/uL (160-400); Red Blood Count 4.39 X10*6/uL (4.20-5.50); White Blood Count 6.6 X10*3/uL (4.8-10.8)
[2024-08-06 14:06] LABS: Alanine Aminotransferase 18 U/L (0-31); Albumin Level 4.2 g/dL (3.5-5.0); Alkaline Phosphatase 67 U/L (39-117); Anion Gap 12 (12-20); Aspartate Amino Transferase 19 U/L (5-31); Bilirubin Total 0.3 mg/dL (0.0-1.0); Blood Urea Nitrogen 13 mg/dL (9-16); Calcium 9.5 mg/dL (8.4-10.2); Carbon Dioxide 23 mmol/L (22-29); Chloride 107 mmol/L (96-108); Creatinine Clr Calc Pharmacy 151.1; Estimated Glomerular Filt Rate > 60; Glucose Random 214 mg/dL (60-115); HCG Quantitative 3510 mIU/mL; Magnesium 1.8 mg/dL (1.6-2.6); Potassium 3.8 mmol/L (3.3-5.1); Sodium 138 mmol/L (135-145)
[2024-08-06] MEDS: Acetaminophen 325 MG TABLET 650 MG PO (15:52)
[2024-08-06] MEDS: Metoclopramide HCl 10 MG/2 ML VIAL IVPUSH (15:53)
[2024-08-06] MEDS: diphenhydrAMINE HCL 50 MG/ML VIAL 12.5 MG IVPUSH (15:53)
[2024-08-06] MEDS: 0.9 % Sodium Chloride 1,000 ML 999 ML IV (15:53)
[2024-08-06 16:28] VITALS: BP 109/45; PULSE 66; RESP 18; O2SAT 98
--- OUTSIDE RECORDS SUMMARY | 2024-08-06 16:42 | XMS_ITS | Clinical Summary ---
Author Organization [facility] ity Address [address] [place] [address] Care Team Providers Care Bakery Manager Name Role Phone Unavailable Primary Care Provider Unavailabl e Social History Tobacco Use Types Packs/Day Years Used Date Smoking Tobacco: Never Assessed Comments Unknown Sex and Gender Information Value Date Recorded Sex Assigned at Not on file Legal Sex Female 7:11 AM EST Gender Identity Not on file Sexual Orientation Not on file Plan of Treatment Health Maintenance Due Date Last Done Comments DTaP,Tdap,and Td Vaccines (1 - Tdap) 04/23/2010 Hepatitis B Vaccines (1 of 3 - 19+ 3-dose series) 04/23/2010 Cervical Cancer Screening: P ap Smear 04/23/2012 COVID-19 Vaccine ( - 2023-2 5 season) 2023 Influenza Vaccine (Season Ended) 2024 HIB Vaccines Aged Out No longer eligi ble based on patient's age to complete this topic HPV Vaccines Aged Out No longer eligi ble based on patient's age to complete this topic Hepatitis A Vaccines Aged Out No long er eligible based on patient's age to complete this topic IPV Vaccines Aged Out No longer eligi ble based on patient's age to complete this topic MMR Vaccines Aged Out No longer eligi ble based on patient's age to complete this topic Meningococcal ACWY Vaccine Aged Out N o longer eligible based on patient's age to complete this topic Meningococcal B Vaccine Aged Out No l onger eligible based on patient's age to complete this topic Pneumococcal Vaccine: Pediat rics (0 to 5 Years) and At-Risk Patients (6 to 64 Years) Aged Out No longer eligible b ased on patient's age to complete this topic RSV Immunization Patients Un treva 20 months Aged Out No longer eligible b ased on patient's age to complete this topic Varicella Vaccines Aged Out No longer eligible based on patient's age to complete this topic
[2024-08-06 17:16] LABS: Influenza A PCR NEGATIVE (Negative); Influenza B PCR NEGATIVE (Negative); Resp Syncy Virus RNA Qual PCR NEGATIVE (Negative); SARS COV2 PCR INHOUSE NEGATIVE (Negative)
== END 2024-08-06 17:44 | disposition left against medical advice (07) ==
PROVIDERS: Physician Assistant; Physician Assistant Medical; Emergency Provider Emergency Medicine Emergency Medical Services; PCP Dentist General Practice
DX: O26.891 Other specified pregnancy related conditions, first trimester (principal); G43.909 Migraine, unspecified, not intractable, without status migrainosus; M72.2 Plantar fascial fibromatosis; Z3A.01 Less than 8 weeks gestation of pregnancy; Z03.818 Encounter for observation for suspected exposure to other biological agents ruled out
CPT/HCPCS: 0241U; 36415; 76801; 76817; 80053; 82947; 83735; 84702; 85025; 96361; 96374; 96375; 99284; J1200; J2765

== ENCOUNTER → 2024-08-06 15:22 | Outpatient (BNV) | payer MEDICAID, SELFPAY | PROVIDERS: Emergency Provider Emergency Medicine Emergency Medical Services; PCP Dentist General Practice; Visit Provider Radiology Diagnostic Radiology | DX: O02.81 Inappropriate change in quantitative human chorionic gonadotropin (hCG) in early pregnancy (principal); Z3A.01 Less than 8 weeks gestation of pregnancy | CPT/HCPCS: 76801; 76817 ==

== ENCOUNTER 2024-09-14 16:31 | Emergency (ER) | payer MEDICAID, SELFPAY ==
--- NOTE | ~2024-09-14 | US_ITS ---
CLINICAL HISTORY: pain US OB 1st Trimester transabdominal and transvaginal Comparison: US/SR - US LESS THAN 14 WEEKS WITH TRANSVAGINAL - 08/06/24 16:02 EDT Findings: Single intrauterine . CRL: 24.3 mm. EGA: 9 weeks, 2 days. Normal yolk sac. No cardiac activity detected. No subchorionic bleed. Ovaries are within normal limits. IMPRESSION: Nonviable 1st trimester . This document has been electronically signed by: Jose Khan MD on 09/14/2024 18:49:27
--- NOTE | 2024-09-14 16:34 | ECG_ITS ---
Test Reason : chest pain Blood Pressure : */* mmHG Vent. Rate : 78 BPM Atrial Rate : 78 BPM P-R Int : 142 ms QRS Dur : 80 ms QT Int : 366 ms P-R-T Axes : 53 62 44 degrees QTcB Int : 417 ms Normal sinus rhythm Normal ECG When compared with ECG of 13-Mar-2024 06:45, No significant change was found Referred By: Generic ED Physician Electronically Signed By: Dallin Hicks
[2024-09-14 16:46] VITALS: BP 115/61; PULSE 77; RESP 16; TEMP 36.3; O2SAT 99; BMI 29.6
[2024-09-14 17:12] LABS: MANUAL DIFF FLAG NO
[2024-09-14 17:19] LABS: Hematocrit 35.8 % (37.0-47.0); Hemoglobin 12.2 g/dl (12.0-16.0); Imm Gran Abs Auto 0.02 X10*3/uL (0.00-0.03); Imm Gran Pct Auto 0.3 % (0.0-0.4); Lymphocytes Absolute Auto 2.1 X10*3/uL (1.2-4.9); Mean Corpuscular HGB Conc 34.1 g/dl (31.0-35.0); Mean Corpuscular Hemoglobin 28.2 pg (27.0-33.0); Mean Corpuscular Volume 82.9 fL (80.0-98.0); NRBC Abs Auto 0.000 X10*3/uL (0.0-0.012); NRBC Pct Auto 0.0 /100WBC (0.0-0.2); Platelet Count 273 X10*3/uL (160-400); Red Blood Count 4.32 X10*6/uL (4.20-5.50); White Blood Count 6.2 X10*3/uL (4.8-10.8)
[2024-09-14 17:20] LABS: INTERNATIONAL NORM RATIO 0.9 (0.9-1.1); Prothrombin Time 10.8 SEC (10.9-12.4)
[2024-09-14 17:33] LABS: Alanine Aminotransferase 14 U/L (0-31); Albumin Level 4.2 g/dL (3.5-5.0); Alkaline Phosphatase 72 U/L (39-117); Anion Gap 14 (12-20); Aspartate Amino Transferase 19 U/L (5-31); Blood Urea Nitrogen 10 mg/dL (9-16); Calcium 9.7 mg/dL (8.4-10.2); Carbon Dioxide 22 mmol/L (22-29); Chloride 105 mmol/L (96-108); Creatinine Clr Calc Pharmacy 175.6; Estimated Glomerular Filt Rate > 60; Magnesium 1.8 mg/dL (1.6-2.6); Potassium 3.5 mmol/L (3.3-5.1); Sodium 137 mmol/L (135-145); Total Protein 6.8 g/dL (6.5-8.0)
[2024-09-14 17:35] LABS: Troponin-I High Sensitivity < 2.7 ng/L (<3.5-17.0)
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
--- OUTSIDE RECORDS SUMMARY | 2024-09-14 17:44 | XMS_ITS | Clinical Summary ---
Author Organization [employer] Address [address] [place] [address] Care Team Providers Care Co Director Name Role Phone Unavailable Primary Care Provider Unavailabl e Encounters Date Type Department Care Team Description 09/03/2024 9:15 AM EDT Office Visit [facility] [address] [place] [address] Trent, Payton, OD Myopia of both eyes (Primary Dx) 09/03/2024 Travel from Last 3 Months Social History Tobacco Use Types Packs/Day Years Used Date Smoking Tobacco: Never Assessed Comments Unknown Sex and Gender Information Value Date Recorded Sex Assigned at Female 08/17/2024 9:52 AM EDT Legal Sex Female 9:50 AM EDT Gender Identity Female 08/17/2024 9:52 AM EDT Sexual Orientation Straight 08/17/2024 9: 52 AM EDT Plan of Treatment Health Maintenance Due Date Last Done Comments Depression Screening 1991 SDOH Screening 1991 Disability Screening 1991 Alcohol/Substance Use Screening 2003 Tobacco Screening 2003 Family Planning (PISQ) 04/23/2006 HPV Vaccines (1 - 3-dose series) 04/23/2006 Hepatitis C Screening 04/23/2009 Hepatitis B Vaccines (1 of 3 - 19+ 3-dose series) 04/23/2010 Pneumococcal Vaccine: Pediatrics (0 to 5 Years) and At-Risk Patients (6 to 49) Years (1 of 2 - PCV) 04/23/2010 Pap Smear 04/23/2012 Cervical Cancer Screening 04/23/2021 HPV/Cotest 04/23/2021 COVID-19 Vaccine ( - 2023-2 5 season) 2023 04/27/2021, 12/10/2020 Influenza Vaccine (#1) 2024 10/30/2018 DTaP/Tdap/Td Vaccines (3 - T d or Tdap) 10/30/2031 10/29/2021, 09/16/2017 Zoster Vaccines (1 of 2) 04/23/2041 RSV Patients and Patients Aged 60 years or older (1 - 1-dose 75+ series) 04/23/2066 HIV Screening Completed 06/14/2024, 06/14/2024 HIB Vaccines Aged Out No longer eligi [...] patient's age to complete this topic Meningococcal Vaccine Aged Out No molly kasi eligible based on patient's age to complete this topic RSV under 20 months Aged Out No longe r eligible based on patient's age to complete this topic Rotavirus Vaccines Aged Out No longer eligible based on patient's age to complete this topic Insurance [facility] C3
--- OUTSIDE RECORDS SUMMARY | 2024-09-14 17:44 | XMS_ITS | Clinical Summary ---
Author Organization [facility] Address [address] [place] [address] Care Team Providers Care Processing Technician Name Role Phone Vannesa Dai PROCESSOR SOLID PROPELLANT-C Primary Care Provider [phone] Source Comments PLEASE NOTE, if this patient is a minor, it may be UNLAWFUL to discuss sensitive information that is contained in these records (such as FAMILY PLANNING, MENTAL HEALTH or SUBSTANCE ABUSE) with the minor patient's parent or other person without the patient's specific authorization.[facility] Allergies Active Allergy Reactions Criticality Noted Date Comments Latex Rash Low 06/02/2022 Metformin GI intolerance 03/08/2023 Methylphenidate Other Severe High 10/29/2014 Nickel 06/02/2022 Medications albuterol sulfate (PROVENTIL) 2.5 mg /3 mL (0.083 %) nebulizer solutionIndicat ions:Mild persistent asthma with acute exacerbation ([facility]) Take 3 mL by nebulization every 6 (six) hours as needed for wheezing 75 mL 2 022 Active fluticasone (FLONASE) 50 mcg/actuation nasal sprayIndication s:Acute non-recurrent maxillary sinusitis SPRAY 1 SPRAY INTO EACH NOSTRIL EVERY DAY 32 mL 1 023 Active meloxicam (MOBIC) 15 mg tabletIndicatio ns:Acute right ankle pain Take 1 Tablet by mouth once daily 90 Tablet 3 023 Active blood-glucose meter monitoring kitIndications: Type 2 diabetes mellitus without complication, without long-term current use of insulin ([facility]) as needed for blood glucose monitoring Dispense Freeystyle 1 Each 023 Active clonazePAM (KLONOPIN) 0.5 mg tabletIndicatio ns:Generalized anxiety disorder Take 1 Tablet by mouth once daily as needed for anxiety 30 Tablet 024 Active ibuprofen 600 mg tablet Take 1 Tablet by mouth 4 (four) times daily as needed for pain 30 Tablet 1 024 Active APRI 0.15-0.03 mg tablet Take 1 Tablet by mouth once daily 024 Active fluconazole (DIFLUCAN) 150 mg tabletIndicatio ns:Vaginal itching TAKE 1 TABLET BY MOUTH ONCE FOR 1 DOSE TAKE 2ND TABLET IF STILL SYMPTOMATIC AFTER 72 HOURS. 2 Tablet 3 025 Active diclofenac sodium (VOLTAREN) 1 % gelIndications: Chronic pain of right knee APPLY TO AFFECTED AREA TWICE A DAY 100 g 3 025 Active blood sugar diagnostic (FREESTYLE LITE STRIPS) stripsIndicatio ns:Type 2 diabetes mellitus without complication, without long-term current use of insulin ([facility]) NEEDED FOR HIGH BLOOD SUGAR CHECK GLUCOSE TWICE DAILY 100 Each 5 025 Active dulaglutide (TRULICITY) 4.5 mg/0.5 mL pen injectorIndicat ions:Type 2 diabetes mellitus without complication, without long-term current use of insulin ([facility]),Medica tion management Inject 4.5 mg into the skin once a week 2 mL 2 025 Active fexofenadine (CHRISTIANO) 180 mg tabletIndicatio ns:Itch of right eye,Dry eye Take 1 Tablet by mouth once daily as needed for allergies 90 Tablet 025 Active cycloSPORINE (RESTASIS) 0.05 % ophthalmic emulsionIndicat ions:Itch of right eye,Dry eye Place 1 Drop into both eyes every 12 (twelve) hours 60 mL 025 Active mometasone-form oterol (DULERA) 200-5 mcg/actuation inhalerIndicati ons:Mild persistent asthma without complication ([facility]) Inhale 2 Puffs into the lungs 2 (two) times daily 13 g 1 025 Active inhalational spacing deviceIndicatio ns:Mild persistent asthma without complication ([facility]) UAD 1 Each 025 Active lancets (FREESTYLE LANCETS) 28 gaugeIndication s:Type 2 diabetes mellitus with hyperglycemia, without long-term current use of insulin ([facility]) USE TO CHECK BLOOD SUGAR TWICE DAILY 100 Each 2 Active lidocaine (LIDODERM) 5 % patchIndication s:Chronic pain of right knee PLACE 1 PATCH ONTO THE SKIN DAILY APPLY 1 PATCH TO THE AFFECTED AREA FOR A MAXIMUM OF 12 HOURS, FOLLOWED BY REMOVAL FOR 12 HOURS. 30 Patch 1 Active M-ANDERSON PLUS Take 1 Tablet by mouth once daily. Active MISCELLANEOUS MEDICAL SUPPLY MISCIndications :Type 2 diabetes mellitus with hyperglycemia, without long-term current use of insulin ([facility]) by miscellaneous route daily Please dispense sharps container. 1 Each Active alcohol swabsIndication s:Type 2 diabetes mellitus with hyperglycemia, without long-term current use of insulin ([facility]) Clean site prior to checking blood sugar or injecting insulin. 200 Each Active glucose 4 gram chewable tabletIndicatio ns:Type 2 diabetes mellitus with hyperglycemia, without long-term current use of insulin ([facility]) Place 4 Tablets into mouth, chew and swallow as needed for low blood sugar. 90 Tablet 1 Active insulin glargine (LANTUS SOLOSTAR U-100 INSULIN) 100 unit/mL (3 mL) penIndications: Type 2 diabetes mellitus with hyperglycemia, without long-term current use of insulin ([facility]),Medica tion management,Preg caterina, unspecified gestational age ([facility]) Inject 10 Units into the skin nightly at bedtime. 15 mL Active blood-glucose,r eceiver,cont (DEXCOM G7 PUTTIER) miscIndications :Type 2 diabetes mellitus with hyperglycemia, without long-term current use of insulin ([facility]),Medica tion management,Preg caterina, unspecified gestational age ([facility]) Use as needed for continuous glucose monitoring.. 1 Each 025 Active pen needle, diabetic (BINH 2ND GEN PEN NEEDLE) 32 gauge x 5/32 ndleIndications :Type 2 diabetes mellitus with hyperglycemia, without long-term current use of insulin ([facility]) Use once daily with lantus. 100 Each 2 025 Active blood-glucose sensor (DEXCOM G7 SENSOR) deviIndications :Type 2 diabetes mellitus with hyperglycemia, without long-term current use of insulin ([facility]),Medica tion management,Preg caterina, unspecified gestational age ([facility]) USE DIRECTED FOR CONTINUOUS GLUCOSE MONITORING... 3 Each 3 025 Active JARDIANCE 25 mg tabIndications: Type 2 diabetes mellitus with hyperglycemia, without long-term current use of insulin ([facility]) TAKE 1 TABLET BY MOUTH EVERY DAY IN THE MORNING 30 Tablet 2 025 Active VENTOLIN HFA 90 mcg/actuation inhalerIndicati ons:Mild persistent asthma with acute exacerbation ([facility]) INHALE 2 PUFFS INTO THE LUNGS EVERY 4 TO 6 HOURS NEEDED FOR SHORTNESS OF BREATH OR WHEEZING 54 Each 1 025 Active VENTOLIN HFA 90 mcg/actuation inhalerIndicati ons:Mild persistent asthma with acute exacerbation ([facility]) INHALE 2 PUFFS INTO THE LUNGS EVERY 4 TO 6 HOURS NEEDED FOR SHORTNESS OF BREATH OR WHEEZING 36 Each 1 025 2024 Discontinued Active Problems Problem Noted Date Diagnosed Date Generalized anxiety disorder 04/28/2023 Type 2 diabetes mellitus wit hout complication, without long-term current use of insulin ([facility]) 02/07/2023 Chronic pain of right knee 06/02/2022 Seasonal allergies 01/05/2022 Migraines 01/05/2022 History of section 01/05/2022 Obesity, Class I, BMI 30-34.9 01/05/2022 Diabetes, gestational ([facility]) 09/29/2021 ADHD (attention deficit hyperactivity disorder) Bipolar II disorder ([facility]) Anxiety Mild persistent asthma with acute exacerbation ( [facility]) Comments Yes Resolved Problems Problem Noted Date Diagnosed Date Resolved Date Disorder of intrauterine con traceptive device ([facility] V24) 01/05/2022 06/14/2024 Homelessness 04/13/2018 06/14/2024 Hypoglycemia 09/16/2017 Encounters Date Type Department Care Team Description 08/21/2024 Interim Notes [address] [address] Vannesa Dai FNP-C 08/14/2024 Interim Notes [address] [address] Arely Bledsoe [place] 08/09/2024 11:20 AM EDT Office Visit [address] [address] Mynor Garcia, PharmD 06/29/2024 Interim Notes [address] [phone] Eduarda Friend [place] from Last 3 Months Immunizations Immunization Administration Dates Next Due Flu, Cell Culture based, Pre servative Free, 6m+, Flucelvax 10/30/2018 PFIZER COVID VACCINE, PURPLE CAP, 12+ 12/10/2020 Pfizer COVID vaccine, COMIRNATY, forrest cap, 12+ 0 04/27/2021 TDAP 10/29/2021,09/16/2017 Family History Medical History Relation Name Comments schizoaffective disorder Brother Cancer Maternal Aunt breast cancer Diabetes Mother Heart Problems Mother bipolar, depresison, adhd Other Brother Diabetes Paternal Aunt Relation Name Status Comments Brother Father Alive Maternal Aunt Mother Other Brother Paternal Aunt Social History Tobacco Use Types Packs/Day Years Used Date Smoking Tobacco: Former Smokeless Tobacco: Never Tobacco Cessation:Counseling Given: Not Answered Alcohol Use Standard Drinks/Week Comments No 0 (1 standard drink = 0.6 oz pur e alcohol) Social Connections Answer Date Recorded Connectedness 0 10/26/2023 Financial Resource Strain Answer Date R ecorded Financial Resource Strain 0 2018 Stress Answer Date Recorded Stress 0 10/12/2018 Physical Activity Answer Date Recorded Physical Activity 0 10/12/2018 Food Insecurity Answer Date Recorded Food 0 11/17/2023 Transportation Needs Answer Date Record ed Transportation 0 10/12/2018 Housing Stability Answer Date Recorded Housing 0 10/12/2018 Safety and Environment Answer Date Flex rded How often does anyone, inclu ding family and friends, physically hurt you? 1 06/14/2024 Utilities Answer Date Recorded Utilities 0 10/12/2018 Employment Answer Date Recorded Stress 0 09/29/2021 Comments Yes Sex and Gender Information Value Date Recorded Sex Assigned at Female 09/05/2017 10:41 AM PDT Legal Sex Female 6:17 AM PDT Gender Identity Female 09/05/2017 10:41 AM PDT Sexual Orientation Don't know 09/05/2017 10 :41 AM PDT Occupation Industry Job Start Date Job End Date unemployed Not on file Not on file Not on file Last Filed Vital Signs Vital Sign Reading Time Taken Comments Blood Pressure 130/80 08/09/2024 11:29 AM EDT Pulse 89 08/09/2024 11:29 AM EDT Temperature 36.6 C (97.8 F) 08/09/2024 11:29 AM EDT Respiratory Rate 18 08/09/2024 11:29 AM EDT Oxygen Saturation 96% 06/14/2024 11:10 AM EDT Inhaled Oxygen Concentration - - Weight 88 kg (194 lb) 08/09/2024 11:29 AM EDT Height 172.7 cm (5' 8 ) 08/09/2024 11:29 AM EDT Body Mass Index 29.5 08/09/2024 11:29 AM EDT Plan of Treatment Health Maintenance Due Date Last Done Comments Dental Examination 1991 Diabetes Foot Exam 1991 HPV Screening 1991 Pap + HPV 1991 Retinopathy Screening 04/23/2004 Imm-Hepatitis B (1 of 3 - 19+ 3-dose series) 04/23/2010 Cervical Cancer Screening 09/30/2017 Pap Smear 09/30/2017 09/30/2014 (Dorcas covarrubias by Outside Provider) [id number] ( season) 2024 04/27/2021, 12/10/2020 Postponed from 10/23/2023 (Patient postponement) Imm-Influenza (#1) 2024 10/30/2018 Hemoglobin A1c 11/09/2024 08/09/2024, 0210/2024, 09/20/2023, Additional history exists Annual Wellness (Adult): Indicated (All Coverage) 06/14/2025 06/14/2024, 04/19/2022, 09/16/2017, Additional history exists Anxiety Screening 06/14/2025 06/14/2024 Relationship Safety Screening/Counseling 06/14/2025 06/14/2024, 11/26/2022, 09/29/2021 Serum Creatinine 06/14/2025 06/14/2024, , 04/26/2022, Additional history exists Urine Albumin Creatinine Ratio Screening 06/14/2025 06/14/2024, 04/18/2023 Hypertension Screening (#1) 08/09/2025 Tobacco Screening 08/09/2025 08/09/2024, , 11/26/2022 Lipid Screening 06/14/2029 06/14/2024, 08/23, 04/26/2022, Additional history exists Hepatitis C Screening Completed 04/26/2022, 022 Alcohol and Drug Screen Completed 04/11/19, 04/05/2023, 06/02/2022, Additional history exists Depression Annual Screen Completed 025, 09/16/2017, 10/29/2014 HIV Screening Completed 06/14/2024, 05/23, 09/16/2017 Cervical Ablation/Cold-Knife Conization Discontinued Cervical Cryotherapy Discontinued Colposcopy Discontinued Endometrial Biopsy Discontinued Excision/Leep Discontinued HPV Genotyping Discontinued Imm-Pneumococcal Discontinued Vaginal Pap Discontinued Vulvoscopy Discontinued Procedures Procedure Name Priority Date/Time Associated Diagnosis Comments MEDICATIONS SCANNED DOCUMENT 08/14/2024 3:00 AM EDT MEDICATIONS SCANNED DOCUMENT 08/14/2024 3:00 AM EDT HCG URINE MCKESSON (POCT) Routine 08/09/2024 11:57 AM EDT , unspecified gestational age ([facility]) GLYCOSYLATED (A1C) DEVICE (CLIA WAIVED) POCT Routine 08/09/2024 11:46 AM EDT Type 2 diabetes mellitus with hyperglycemia, without long-term current use of insulin ([facility]) GLUCOSE, BLOOD BY GLUCOSE MONITORING DEVICE (CLIA WAIVED)POCT Routine 08/09/2024 11:32 AM EDT Type 2 diabetes mellitus with hyperglycemia, without long-term current use of insulin ([facility]) IMAGING SCANNED DOCUMENT 08/06/2024 3:00 AM EDT C TRACHOMATIS/N GONORRHOEAE RNA,TMA Routine 06/14/2024 4:36 PM EDT Screening examination for STI HIV 1/2 AG & AB W/RFLX (4TH GEN) Routine 06/14/2024 4:36 PM EDT Screening examination for STI RPR (MONITOR) W/REFL TITER Routine 06/14/2024 4:36 PM EDT Screening examination for STI COMPREHENSIVE METABOLIC PANEL Routine 06/14/2024 4:36 PM EDT Routine general medical examination at a [facility] care facility LIPID PANEL Routine 06/14/2024 4:36 PM EDT Routine general medical examination at a [facility] care facility Type 2 diabetes mellitus without complication, without long-term current use of insulin ([facility]) MICROALBUMIN/CREATININ E RATIO, URINE, RANDOM Routine 06/14/2024 4:36 PM EDT Routine general medical examination at a [facility] care facility Type 2 diabetes mellitus without complication, without long-term current use of insulin ([facility]) RFLX - REFLEXIVE URINE CULTURE Routine 04/26/2022 11:37 AM EST HEPATITIS C AB W/RFLX HCV RNA, QT, RT PCR Routine 04/26/2022 11:37 AM EST Routine general medical examination at a [facility] facility from Last 3 Months or Most Recently Relevant to Health Maintenance Results * MEDICATIONS SCANNED DOCUMENT (08/14/2024 3:00 AM EDT) Only the most recent of2 resultswithin the time period is included. 08/14/2024 3:00 AM EDT Vannesa Dai PROCESSOR SOLID PROPELLANT-C SCAN MEDS OTHER ORDERS Fi nal Result * (ABNORMAL) HCG URINE MCKESSON (POCT) Urine Routine (08/09/2024 11:57 AM EDT) URINE HCG POSITIVE(A ) NEGATIVE [facility] BACK OFFICE POCT INTERNAL CONTROL PASS PASS [facility] OFFICE POCT Urine Urine specimen / Unknown 08/09/2024 11:57 AM EDT Mynor Antil PharmD LAB URINE AMBULATORY Final Result Performing Organization Address [facility]/ZIP Co de Phone Number [facility] OFFICE POCT * (ABNORMAL) GLYCOSYLATED (A1C) DEVICE (CLIA WAIVED) POCT Routine (08/09/2024 11:46 AM EDT) HGB A1C 7.5(A) 4.2 - 6.5 % [facility] OFFICE POCT Capillary Blood Blood / Unknown 11:46 AM EDT Mynor Antil PharmD LAB - BLOOD DRAW Final Resu lt Performing Organization Address [facility] Co de Phone Number [facility] OFFICE POCT * (ABNORMAL) GLUCOSE, BLOOD BY GLUCOSE MONITORING DEVICE (CLIA WAIVED)POCT Routine (08/09/2024 11:32 AM EDT) GLUCOSE 192(A) 70 - 100 mg/dL [facility] OFFICE POCT Capillary Blood Blood / Unknown 11:32 AM EDT Mynor Antil PharmD LAB - BLOOD DRAW Final Resu lt Performing Organization Address [facility] Co de Phone Number [facility] OFFICE POCT * IMAGING SCANNED DOCUMENT (08/06/2024 3:00 AM EDT) 08/06/2024 3:00 AM EDT Vannesa Hopkinsri PROCESSOR SOLID PROPELLANT-C SCAN IMAGING Final Res ult * HIV 1/2 AG & AB W/RFLX (4TH GEN) (06/14/2024 4:36 PM EDT) HIV AG/AB, 4TH GEN NON-REAC TIVE NON-REAC TIVE [employer] Comment: HIV-1 antigen and HIV-1/HIV-2 antibodies were not detected. There is no laboratory evidence of HIV infection. PLEASE NOTE: This information has been disclosed to you from records whose confidentiality may be protected by state law. If your state requires such protection, then the state law prohibits you from making any further disclosure of the information without the specific written consent of the person to whom it pertains, or as otherwise permitted by law. A general authorization for the release of medical or other information is NOT sufficient for this purpose. For additional information please refer to http://education.Shoebox/faq/PDG153 (This link is being provided for informational/ educational purposes only.) The performance of this assay has not been clinically validated in patients less than 2 years old. Blood Blood / Unknown 06/14/2024 4 :36 PM EDT 06/14/2024 4:37 PM EDT Narrative [employer] - 06/15/2024 5:52 PM EDT FASTING:NO Vannesa Dai PROCESSOR SOLID PROPELLANT-C LAB - BLOOD DRAW Final Re sult [facility] [address] [place] [id number], [place] [address] [address] * CHLAMYDIA/GONORRHOEAE RNA, TMA, URINE (06/14/2024 4:36 PM EDT) CHLAMYDIA TRACHOMATIS RNA, TMA NOT DETECTED NOT DETECTED [facility] NEISSERIA GONORRHOEAE RNA, TMA NOT DETECTED NOT DETECTED [facility] COMMENT [place] [facility] Urine Urine specimen / Unknown 06/14/2024 4:36 PM EDT 06/14/2024 4:37 PM EDT Narrative [employer] - 06/15/2024 5:52 PM EDT FASTING:NO The analytical performance characteristics of this assay, when used to test SurePath(TM) specimens have been determined by [employer]. The modifications have not been cleared or approved by the FDA. This assay has been validated pursuant to the CLIA regulations and is used for clinical purposes. For additional information, please refer to https://education.Shoebox/faq/OND138 (This link is being provided for information/ educational purposes only.) [employer] Vannesa Hopkinsri PROCESSOR SOLID PROPELLANT-C LAB BODY FLUIDS AND STOOL S AMBULATORY Edited Result - Final Performing Organization Address [facility]/ZIP Co de Phone Number [place] [address] [address], [place] [address] [address] * RPR (MONITOR) W/REFL TITER (06/14/2024 4:36 PM EDT) RPR (MONITOR) W/REFL TITER NON-REACT DORA NON-REACT DORA [place] [facility] Blood Blood / Unknown 06/14/2024 4 :36 PM EDT 06/14/2024 4:37 PM EDT Narrative [employer] [facility] - 06/15/2024 5:52 PM EDT FASTING:NO Safer [employer] Dai PROCESSOR SOLID PROPELLANT-C LAB - BLOOD DRAW Edited R esult - Final Performing Organization Address [facility] Co de Phone Number [place] [address] [address], [place] [address] [address] * MICROALBUMIN/CREATININE RATIO, URINE, RANDOM (06/14/2024 4:36 PM EDT) CREATININE, RANDOM URINE 68 20 - 275 mg/dL [place] [facility] MICROALBUMIN 0.6 mg/dL [facility] Comment: Reference Range Not established MICROALBUMIN/CREA TININE RATIO, RANDOM URINE 9 <30 mg/g creat [place] [facility] Comment: The ADA defines abnormalities in albumin excretion as follows: Albuminuria Category Result (mg/g creatinine) Normal to Mildly increased <30 Moderately increased 30-299 Severely increased > OR = 300 The ADA recommends that at least two of three specimens collected within a 3-6 month period be abnormal before considering a patient to be within a diagnostic category. Urine Urine specimen / Unknown 06/14/2024 4:36 PM EDT 06/14/2024 4:37 PM EDT Narrative [employer] [facility] - 06/15/2024 5:52 PM EDT FASTING:NO us Vannesa Dai PROCESSOR SOLID PROPELLANT-C LAB URINE AMBULATORY Liz l Result [place] [facility] [address] [address], [place] [facility] [address] [place] [address] * LIPID PANEL (06/14/2024 4:36 PM EDT) [facility] Signature CHOLESTEROL, TOTAL 183 <200 mg/dL [place] [facility] HDL CHOLESTEROL 61 > OR = 50 mg/dL [place] [facility] TRIGLYCERIDES 145 <150 mg/dL [place] [facility] LDL-CHOLESTEROL 97 99 mg/dL (calc) [place] [facility] Comment: Reference range: <100 Desirable range <100 mg/dL for primary prevention; <70 mg/dL for patients with CHD or diabetic patients with > or = 2 CHD risk factors. LDL-C is now calculated using the Kin-Wolfe calculation, which is a validated novel method providing better accuracy than the Friedewald equation in the estimation of LDL-C. Kin BATISTA et al. CHRIST. 2013;310(19): 6232-1619 (http://education.[employer] Box/faq/ZDO921) CHOL/HDLC RATIO 3.0 <5.0 (calc) [facility] NON-HDL CHOLESTEROL 122 <130 mg/dL (calc) [facility] Comment: For patients with diabetes plus 1 major ASCVD risk factor, treating to a non-HDL-C goal of <100 mg/dL (LDL-C of <70 mg/dL) is considered a therapeutic option. Blood Blood / Unknown 06/14/2024 4 :36 PM EDT 06/14/2024 4:37 PM EDT Narrative [place] [facility] - 06/15/2024 5:52 PM EDT FASTING:NO us Vannesa Dai PROCESSOR SOLID PROPELLANT-C LAB - BLOOD DRAW Final Re sult [place] [facility] [address] [address], [place] [facility] [address] [place] [address] * COMPREHENSIVE METABOLIC PANEL (06/14/2024 4:36 PM EDT) GLUCOSE 105 65 - 139 mg/dL [place] [facility] Comment: Non-fasting reference interval UREA NITROGEN (BUN) 11 7 - 25 mg/dL [place] [facility] CREATININE (blood) 0.56 0.50 - 0.97 mg/dL [place] [facility] EGFR 124 > OR = 60 mL/min/1. 73m2 [place] [facility] BUN/CREATININE RATIO SEE NOTE: [facility] Comment: Not Reported: BUN and Creatinine are within reference range. SODIUM 137 135 - 146 mmol/L [place] [facility] POTASSIUM 4.0 3.5 - 5.3 mmol/L [place] [facility] CHLORIDE 102 98 - 110 mmol/L [place] [facility] CARBON DIOXIDE 26 20 - 32 mmol/L [place] [facility] CALCIUM 9.9 8.6 - 10.2 mg/dL [place] [facility] PROTEIN, TOTAL 7.0 6.1 - 8.1 g/dL [place] [facility] ALBUMIN 4.4 3.6 - 5.1 g/dL [place] [facility] GLOBULIN 2.6 1.9 - 3.7 g/dL (calc) [place] [facility] ALBUMIN/GLOBULI N RATIO 1.7 1.0 - 2.5 (calc) [place] [facility] BILIRUBIN, TOTAL 0.4 0.2 - 1.2 mg/dL [place] [facility] ALKALINE PHOSPHATASE 77 31 - 125 U/L [place] [facility] AST 19 10 - 30 U/L [place] [facility] ALT 20 6 - 29 U/L [place] [facility] Blood Blood / Unknown 06/14/2024 4 :36 PM EDT 06/14/2024 4:37 PM EDT Narrative [employer] [facility] - 06/15/2024 5:52 PM EDT FASTING:NO Gaviota Suhas PROCESSOR SOLID PROPELLANT-C LAB - BLOOD DRAW Edited R esult - Final Performing Organization Address [facility] Co de Phone Number [place] [facility] [address] [address], [place] [address] [address] * Hep C Antibody with Reflex HCV RNA (04/26/2022 11:37 AM EST) HEPATITIS C ANTIBODY NON-REACT DORA NON-REACT DORA [place] [facility] SIGNAL TO CUT-OFF 0.09 <1.00 [place] [facility] Comment: HCV antibody was non-reactive. There is no laboratory evidence of HCV infection. In most cases, no further action is required. However, if recent HCV exposure is suspected, a test for HCV RNA (test code 82680) is suggested. For additional information please refer to http://education.Shoebox/faq/JVJ19p7 (This link is being provided for informational/ educational purposes only.) Blood Blood / Unknown 04/26/2022 1 1:37 AM EST 04/26/2022 11:38 AM EST Narrative [facility] - 04/29/2022 1:27 AM EST FASTING:YES Vannesa ENRIQUEZ-C LAB - BLOOD DRAW Edited R esult - Final Performing Organization Address [facility] de Phone Number [place] [facility] [address] [address], [place] [address] ([address] [phone] * RFLX - REFLEXIVE URINE CULTURE (04/26/2022 11:37 AM EST) REFLEXIVE URINE CULTURE See Below [facility] Comment:CULTURE INDICATED - RESULTS TO FOLLOW 04/26/2022 11:3 7 AM EST 04/26/2022 11:38 AM EST Narrative [facility] - 04/29/2022 1:27 AM EST FASTING:YES GaviotaClipyoo Suhas PROCESSOR SOLID PROPELLANT-C LAB - MICROBIOLOGY AMBULA TORY Edited Result - Final Performing Organization Address [facility] Co de Phone Number [facility] [address] [facility] [address] [place] [address], [facility] [address] ([address]) [place] [address] from Last 3 Months or Most Recently Relevant to Health Maintenance Insurance [place] D[place] [facility] Care Teams Processing Technician Relationship Specialty Start Date End Date Vannesa Dai FNP-C [address] [place] [address] PCP - General Internal Medicine 01/05/22
--- NOTE | 2024-09-14 17:53 | ED.CHESTPAIN ---
HPI - Chest Pain General Chief Complaint: Chest Pain Stated Complaint: cp, pain in left shoulder, vag. bleed (preg) Time Seen by Provider: 09/14/24 17:52 Source: patient Mode of arrival: ambulatory Limitations: no limitations History of Present Illness ED Provider: HPI narrative: Patient's history of anxiety 11 weeks 6 para 5 comes here as she noticed slight spotting earlier today also complaining of chest pain started same time does have history of anxiety does get chest pain when she gets anxiety at this time no chest pain chest pain was on the left side going to the breast lasted only for few minutes history of similar pain in the past Related Data Previous Rx's ?Medication ?Instructions ?Recorded ibuprofen 600 mg tablet 600 mg PO Q8H PRN pain #30 tabs 01/30/20 lidocaine 5 % topical patch 1 patch topical DAILY #15 ea 01/30/20 (Lidoderm) ibuprofen 600 mg tablet 600 mg PO Q6H PRN pain #20 tabs 02/03/20 vitamin with calcium 1 tab PO BEDTIME #30 tabs 03/10/20 no.72-iron 27 mg-folic acid 1 mg tablet ( Vitamins Plus Low Iron) metronidazole 500 mg tablet 500 mg PO BID 7 days #14 tabs 03/21/20 (Flagyl) metronidazole 0.75 % (37.5 mg/5 1 appful vaginal BEDTIME 5 days 03/25/20 gram) vaginal gel (Metrogel #70 grams Vaginal) prednisone 20 mg tablet 40 mg (2 x 20 mg) PO DAILY 5 days 05/27/20 #10 tabs wsidovaxff-ulzkfxybblzwo-fwokgpzl 1 tab PO Q6H PRN pain #20 tabs 06/26/20 50 mg-325 mg-40 mg tablet cyclobenzaprine 10 mg tablet 10 mg PO TID PRN muscle spasm #14 06/26/20 tabs cephalexin 500 mg capsule 500 mg PO BID 7 days #14 caps 12/20/20 erythromycin 5 mg/gram (0.5 %) eye 0.5 inch ophthalmic (eye) BID 7 12/20/20 ointment days #3.5 grams terconazole 0.4 % vaginal cream 1 appful vaginal BEDTIME 7 days 03/10/21 #45 grams cephalexin 500 mg capsule 500 mg PO TID #20 caps 08/07/21 miconazole nitrate 4 % (200 mg)-2 See Rx Instructions vaginal 11/15/21 % (9 gram)vaginal,prefill .COMPLEX #24 grams appl,cream (Monistat 3) nitrofurantoin 100 mg PO Q12H 7 days #14 caps 11/18/21 monohydrate/macrocrystals 100 mg capsule (Macrobid) ibuprofen 800 mg tablet 800 mg PO Q8H PRN pain #30 tabs 02/06/22 prednisone 20 mg tablet 60 mg (3 x 20 mg) PO DAILY 4 days 02/06/22 #12 tabs fluticasone propionate 50 1 spray intranasal BID #16 grams 03/10/22 mcg/actuation nasal spray,suspension (Flonase Allergy Relief) fluconazole 150 mg tablet 150 mg PO Q3D 2 doses #2 tabs 01/16/23 nitrofurantoin 100 mg PO BID 5 days #10 caps 01/16/23 monohydrate/macrocrystals 100 mg capsule (Macrobid) metronidazole 500 mg tablet 500 mg PO BID 7 days #14 tabs 01/19/23 amoxicillin 500 mg-potassium 1 tab PO BID #14 tabs 03/13/24 clavulanate 125 mg tablet (Augmentin) ibuprofen 800 mg tablet 800 mg PO Q8H PRN pain #20 tabs 03/13/24 metoclopramide HCl 10 mg tablet 10 mg PO Q6H PRN headache,nausea 07/26/24 (Reglan) or vomiting #14 tabs Allergies Allergy/AdvReac Type Severity Reaction Status Date / Time methylphenidate (From Allergy Unknown Swelling Verified 09/14/24 16:50 CONCERTA) nickel (NICKEL) Allergy Unknown HIVES Verified 09/14/24 16:50 latex Allergy Unknown Verified 09/14/24 16:50 ibuprofen AdvReac Rash Verified 09/14/24 16:50 Review of Systems Review of Systems: Yes all other systems are reviewed and are negative PMFSH Past Medical History Medical History Asthma delivery delivered Social History Social History Alcohol intake: never Smoked in Last 30 Days: No Use of substances other than those prescribed or required for medical reasons: No Advance Directives: No Advance Directives Information Provided: No Do you have a plan to hurt others: No Plan Patient : Yes Sexual orientation: Straight/Heterosexual Physical Exam Vital Signs: Vital Signs: Last Vital Signs Temp 97.5 F 09/14/24 19:41 Pulse 75 09/14/24 19:41 Resp 17 09/14/24 19:41 BP 116/56 L 09/14/24 19:41 Pulse Ox 100 09/14/24 19:41 O2 Del Method Room Air 09/14/24 19:41 BMI result Body Mass Index 29.6 Appearance: Alert. Oriented X3. No acute distress. Eyes: No pallor or icterus ENT: Pharynx normal. Oral Mucosa moist Neck: Normal inspection. Neck supple. CVS: Normal heart rate and rhythm. Pulses normal. Respiratory: No respiratory distress. Equal air entry bilateral, no wheezing/rales/rhonchi Abdomen: Soft and nontender. Bowel sounds are present, no mass palpable, no CVA tenderness Skin: Skin warm and dry. Normal skin color. Normal skin turgor. Extremities: No lower extremity edema. No calf tenderness Neuro: Oriented X 3. No motor deficit. No sensory deficit.No cerebellar signs , cranial nerves II-XII intact Medical Decision Making Medical Decision Making MDM Narrative: Patient with atypical noncardiac chest pain with anxiety cardiogram and troponin negative with low risk. Patient did have slight spotting earlier ultrasound showed 10 weeks 6 days IUP with no heart activity STDs 4310 was 3510 on 08/06 will call [facility] for further evaluation for impending miscarriage Lab Data MDM Lab Attestation statement: I reviewed the patient's lab results. 09/14/24 17:00 09/14/24 17:00 Labs: Lab Results 09/14/24 Range/Units 17:00 WBC 6.2 (4.8-10.8) X10*3/uL RBC 4.32 (4.20-5.50) X10*6/uL Hgb 12.2 (12.0-16.0) g/dl Hct 35.8 L (37.0-47.0) % MCV 82.9 (80.0-98.0) fL MCH 28.2 (27.0-33.0) pg MCHC 34.1 (31.0-35.0) g/dl RDW 15.5 (11.0-16.0) % Plt Count 273 D (160-400) X10*3/uL MPV 8.5 L (9.4-12.3) fL Immature Gran % (Auto) 0.3 (0.0-0.4) % Neut % (Auto) 57.3 (45-73) % Lymph % (Auto) 33.6 (20-40) % [place] % (Auto) 6.3 (2-11) % Eos % (Auto) 1.9 (0-4) % Baso % (Auto) 0.6 (0-2) % Lymph # (Auto) 2.1 (1.2-4.9) X10*3/uL [place] # (Auto) 0.4 (0.1-1.2) X10*3/uL Eos # (Auto) 0.1 (0.0-0.4) X10*3/uL Baso # (Auto) 0.0 (0.0-0.2) X10*3/uL Abs Immat Gran (auto) 0.02 (0.00-0.03) X10*3/uL Absolute Neuts (auto) 3.5 (2.0-8.3) x10*3/uL Absolute Nucleated RBC 0.000 (0.0-0.012) X10*3/uL Nucleated RBC % (auto) 0.0 (0.0-0.2) /100WBC PT 10.8 L (10.9-12.4) SEC INR 0.9 (0.9-1.1) Sodium 137 (135-145) mmol/L Potassium 3.5 (3.3-5.1) mmol/L Chloride 105 (96-108) mmol/L Carbon Dioxide 22 (22-29) mmol/L Anion Gap 14 (12-20) BUN 10 (9-16) mg/dL Creatinine 0.53 (0.5-1.4) mg/dL Estim Creat Clear Calc 175.6 Estimated GFR > 60 Random Glucose 163 H (60-115) mg/dL Calcium 9.7 (8.4-10.2) mg/dL Magnesium 1.8 (1.6-2.6) mg/dL Total Bilirubin 0.4 (0.0-1.0) mg/dL AST 19 (5-31) U/L ALT 14 (0-31) U/L Alkaline Phosphatase 72 (39-117) U/L Troponin I High Sens < 2.7 (<3.5-17.0) ng/L Total Protein 6.8 (6.5-8.0) g/dL Albumin 4.2 (3.5-5.0) g/dL Beta HCG, Quant 4310 mIU/mL Independent Interpretation I performed an independent interpretation of an: EKG and Ultrasound Interpretation: Normal sinus rhythm heart rate 78 beats per minute normal interval normal axis no acute ST-T changes no acute ischemia impression normal EKG Discharge Plan Discharge Clinical Impression: Atypical chest pain, Miscarriage at 8 to 28 weeks gestation Patient Disposition: Home, Self-Care Instructions: Miscarriage (ED), Noncardiac Chest Pain (ED) Additional Instructions: Follow up with your Ob G their office will call you for further management At this time you have nonviable as there was no heart activity you may bleed heavily if that happens you may have to go to hospital otherwise your OB office will call for further management Prescriptions: No Action metronidazole [Flagyl] 500 mg tablet 500 mg PO BID 7 Days Qty: 14 0RF metronidazole [Metrogel Vaginal] 0.75 % gel 1 appful vaginal BEDTIME 5 Days Qty: 70 0RF lidocaine [Lidoderm] 5 % adhesive patch,medicated 1 patch topical DAILY Qty: 15 0RF Rx Instructions: leave on most painful area for up to 12 hrs ibuprofen 600 mg tablet 600 mg PO Q8H PRN (Reason: pain) Qty: 30 0RF ibuprofen 600 mg tablet 600 mg PO Q6H PRN (Reason: pain) Qty: 20 0RF prednisone 20 mg tablet 40 mg PO DAILY 5 Days Qty: 10 0RF cyclobenzaprine 10 mg tablet 10 mg PO TID PRN (Reason: muscle spasm) Qty: 14 0RF nlpyczsdah-zwsbwwkzogkci-bsbr 50-325-40 mg tablet 1 tab PO Q6H PRN (Reason: pain) Qty: 20 0RF cephalexin 500 mg capsule 500 mg PO TID Qty: 20 0RF miconazole nitrate [Monistat 3] 4 % (200 mg)- 2 % (9 gram) comb pack,prefill appl, cream See Rx Instructions .ROUTE .COMPLEX Qty: 24 0RF Rx Instructions: put 1 supp in vagina at bedtime x 3nites;use cream on area outside vagina 2X/day for up to 7days nitrofurantoin monohyd/m-cryst [Macrobid] 100 mg capsule 100 mg PO Q12H 7 Days Qty: 14 0RF Rx Instructions: must administer with a meal/food ibuprofen 800 mg tablet 800 mg PO Q8H PRN (Reason: pain) Qty: 30 0RF prednisone 20 mg tablet 60 mg PO DAILY 4 Days Qty: 12 0RF fluticasone propionate [Flonase Allergy Relief] 50 mcg/actuation spray,suspension 1 spray intranasal BID Qty: 16 0RF Rx Instructions: administer into each nostril cephalexin 500 mg capsule 500 mg PO BID 7 Days Qty: 14 0RF erythromycin 5 mg/gram (0.5 %) ointment 0.5 inch ophthalmic (eye) BID 7 Days Qty: 3.5 0RF amoxicillin-pot clavulanate [Augmentin] 500-125 mg tablet 1 tab PO BID Qty: 14 0RF ibuprofen 800 mg tablet 800 mg PO Q8H PRN (Reason: pain) Qty: 20 0RF fluconazole 150 mg tablet 150 mg PO Q3D Qty: 2 0RF Rx Instructions: Take 1 dose now. If symptoms do not resolve within 72 hours take the 2nd dose. nitrofurantoin monohyd/m-cryst [Macrobid] 100 mg capsule 100 mg PO BID 5 Days Qty: 10 0RF Rx Instructions: must administer with a meal/food metronidazole 500 mg tablet 500 mg PO BID 7 Days Qty: 14 0RF metoclopramide HCl [Reglan] 10 mg tablet 10 mg PO Q6H PRN (Reason: headache,nausea or vomiting) Qty: 14 0RF Vitamin Plus Low Iron 27 mg iron- 1 mg tablet 1 tab PO BEDTIME Qty: 30 11RF Rx Instructions: give with food (meal/snack) terconazole 0.4 % cream 1 appful vaginal BEDTIME 7 Days Qty: 45 0RF Interventions: ED Discharge Assessment Last Done: 09/14/24 19:41 Discharge Date/Time: 09/14/24 19:42 Print Language: Turkish
[2024-09-14 19:40] VITALS: BP 116/56; PULSE 75; RESP 17; TEMP 36.4; O2SAT 100
[2024-09-14 19:41] VITALS: BP 116/56; PULSE 75; RESP 17; TEMP 36.4; O2SAT 100
== END 2024-09-14 19:42 | disposition home or self-care (01) ==
PROVIDERS: Emergency Provider Internal Medicine; PCP Registered Nurse
DX: O20.9 Hemorrhage in early pregnancy, unspecified (principal); Z3A.11 11 weeks gestation of pregnancy; R07.89 Other chest pain; Z79.899 Other long term (current) drug therapy; R10.2 Pelvic and perineal pain
CPT/HCPCS: 36415; 76801; 80053; 83735; 84484; 84702; 85025; 85610; 93005; 99284

== ENCOUNTER → 2024-09-14 16:34 | Outpatient (BNV) | payer MEDICAID, SELFPAY | PROVIDERS: Emergency Provider Internal Medicine; PCP Registered Nurse; Visit Provider Internal Medicine Cardiovascular Disease | DX: R07.9 Chest pain, unspecified (principal) | CPT/HCPCS: 93010 ==

== ENCOUNTER → 2024-09-14 17:11 | Outpatient (BNV) | payer MEDICAID, SELFPAY | PROVIDERS: Emergency Provider Internal Medicine; PCP Registered Nurse; Visit Provider Radiology Diagnostic Radiology | DX: O26.891 Other specified pregnancy related conditions, first trimester (principal); R10.9 Unspecified abdominal pain; Z3A.09 9 weeks gestation of pregnancy | CPT/HCPCS: 76801; 76817 ==

== ENCOUNTER 2024-09-16 18:23 | Emergency (ER) | payer MEDICAID, SELFPAY ==
[2024-09-16] VITALS (11 sets, daily range): BP systolic 95–126; BP diastolic 44–67; PULSE 69–89; RESP 16–20; TEMP 36.1–36.3; O2SAT 97–100; BMI 29.5
--- NOTE | 2024-09-16 18:57 | ED.GENADULT ---
HPI - General Adult General Chief complaint: Vaginal Bleeding Stated complaint: miscarriage Time Seen by Provider: 09/16/24 18:42 Source: patient Limitations: no limitations History of Present Illness ED Provider: Yamini Lloyd PA-C HPI narrative: 34-year-old female who was approximately 11 weeks , who required initiation of medical secondary to demise on September 14, presents with heavy vaginal bleeding. Patient states she was started on misoprostol yesterday at [facility], she took her 2nd dose today. Within the hour, the patient developed heavy vaginal bleeding with the abdominal cramping, passing large clots at times. Patient states she is soaking through 2 pads and less than an hour. Associated dizzy and lightheadedness. Related Data Previous Rx's ?Medication ?Instructions ?Recorded ibuprofen 600 mg tablet 600 mg PO Q8H PRN pain #30 tabs 01/30/20 lidocaine 5 % topical patch 1 patch topical DAILY #15 ea 01/30/20 (Lidoderm) ibuprofen 600 mg tablet 600 mg PO Q6H PRN pain #20 tabs 02/03/20 vitamin with calcium 1 tab PO BEDTIME #30 tabs 03/10/20 no.72-iron 27 mg-folic acid 1 mg tablet ( Vitamins Plus Low Iron) metronidazole 500 mg tablet 500 mg PO BID 7 days #14 tabs 03/21/20 (Flagyl) metronidazole 0.75 % (37.5 mg/5 1 appful vaginal BEDTIME 5 days 03/25/20 gram) vaginal gel (Metrogel #70 grams Vaginal) prednisone 20 mg tablet 40 mg (2 x 20 mg) PO DAILY 5 days 05/27/20 #10 tabs xmwicibsok-nvvtyozjdogeo-nyzvgwio 1 tab PO Q6H PRN pain #20 tabs 06/26/20 50 mg-325 mg-40 mg tablet cyclobenzaprine 10 mg tablet 10 mg PO TID PRN muscle spasm #14 06/26/20 tabs cephalexin 500 mg capsule 500 mg PO BID 7 days #14 caps 12/20/20 erythromycin 5 mg/gram (0.5 %) eye 0.5 inch ophthalmic (eye) BID 7 12/20/20 ointment days #3.5 grams terconazole 0.4 % vaginal cream 1 appful vaginal BEDTIME 7 days 03/10/21 #45 grams cephalexin 500 mg capsule 500 mg PO TID #20 caps 08/07/21 miconazole nitrate 4 % (200 mg)-2 See Rx Instructions vaginal 11/15/21 % (9 gram)vaginal,prefill .COMPLEX #24 grams appl,cream (Monistat 3) nitrofurantoin 100 mg PO Q12H 7 days #14 caps 11/18/21 monohydrate/macrocrystals 100 mg capsule (Macrobid) ibuprofen 800 mg tablet 800 mg PO Q8H PRN pain #30 tabs 02/06/22 prednisone 20 mg tablet 60 mg (3 x 20 mg) PO DAILY 4 days 02/06/22 #12 tabs fluticasone propionate 50 1 spray intranasal BID #16 grams 03/10/22 mcg/actuation nasal spray,suspension (Flonase Allergy Relief) fluconazole 150 mg tablet 150 mg PO Q3D 2 doses #2 tabs 01/16/23 nitrofurantoin 100 mg PO BID 5 days #10 caps 01/16/23 monohydrate/macrocrystals 100 mg capsule (Macrobid) metronidazole 500 mg tablet 500 mg PO BID 7 days #14 tabs 01/19/23 amoxicillin 500 mg-potassium 1 tab PO BID #14 tabs 03/13/24 clavulanate 125 mg tablet (Augmentin) ibuprofen 800 mg tablet 800 mg PO Q8H PRN pain #20 tabs 03/13/24 metoclopramide HCl 10 mg tablet 10 mg PO Q6H PRN headache,nausea 07/26/24 (Reglan) or vomiting #14 tabs Allergies Allergy/AdvReac Type Severity Reaction Status Date / Time methylphenidate (From Allergy Unknown Swelling Verified 09/16/24 18:42 CONCERTA) nickel (NICKEL) Allergy Unknown HIVES Verified 09/16/24 18:42 latex Allergy Unknown Verified 09/16/24 18:42 ibuprofen AdvReac Rash Verified 09/16/24 18:42 Review of Systems Review of Systems: Yes all other systems are reviewed and are negative Constitutional: Constitutional: Denies fatigue and Denies fever(s) ENT: Reports dizziness Cardiovascular: Cardiovascular: Denies chest pain and Denies dyspnea Respiratory: Respiratory: Denies dyspnea Gastrointestinal: Gastrointestinal: Reports abdominal pain, Denies nausea and Denies vomiting Genitourinary: Genitourinary: Reports abnormal vaginal bleeding Neurologic: Reports dizziness Endocrine: Endocrine: Denies fatigue PMFSH Past Medical History Attestation statement: The following information was validated with the patient. Medical History Asthma delivery delivered Social History Social History Alcohol intake: never Sexual orientation: Straight/Heterosexual Physical Exam ED Exam Exam: Alert, anxious, tearful Vital Signs: Vital Signs - 24 hr 09/16/24 18:41 Temperature 97.0 F Pulse Rate 89 Respiratory Rate 16 Blood Pressure 117/53 L Pulse Oximetry 98 Oxygen Delivery Method Room Air BMI result Body Mass Index 29.5 Const Orientation/consciousness: patient oriented x3 Resp Effort & Inspection: normal respiratory effort Cardio Other: Normal peripheral perfusion Other: Patient is actively hemorrhaging. II suctioned the blood from the vaginal canal, there is automatic filling, the os is not fully open, I can see tissue protruding from the os that I can not dislodged, multiple large clots were evacuated with suction Skin Other: Warm dry no rash Neuro General: patient oriented x3, gait normal, no focal motor deficits and CN's II-XI intact bilaterally Psych Other: Cooperative Course Consultations Consultation #1: We do not have multifocal button grinder coverage today, Calling [facility] for consult...... Speaking with 1 of the senior residents, Dr. Solomon, as expected, the patient requires D and C, no further recommendations other than transport the patient ANG... They have records on the patient from yesterday or the day before, she is Rh positive Time: 19:15 Medications Administered Generic Name Dose Route Start Last Admin Trade Name Freq PRN Reason Stop Dose Admin Sodium Chloride 1,000 mls @ 999 mls/hr 09/16/24 19:15 09/16/24 19:13 Ns IV 09/16/24 20:15 999 mls/hr .Q1H1M [place] Administration Discontinued Medications Generic Name Dose Route Start Last Admin Trade Name Freq PRN Reason Stop Dose Admin Morphine Sulfate 4 mg 09/16/24 19:10 09/16/24 19:14 Morphine Sulfate 4 Mg/Ml Cartridge IVPUSH 09/16/24 19:11 4 mg ONCE ONE Administration Protocol Ondansetron HCl 4 mg 09/16/24 19:10 09/16/24 19:14 Ondansetron Hcl 4 Mg/2 Ml Vial IVPUSH 09/16/24 19:11 4 mg ONCE ONE Administration Procedures Procedure Narrative Procedure Narrative: Ultrasound-guided IV 18 gauge 1-3/4 inch IV placed in left upper extremity. Adequate blood return flushes well secured with Tegaderm Medical Decision Making Medical Decision Making MDM Narrative: 34-year-old female who was approximately 11 weeks , who required initiation of medical secondary to demise on September 14, presents with heavy vaginal bleeding. Patient states she was started on misoprostol yesterday at [facility], she took her 2nd dose today. Within the hour, the patient developed heavy vaginal bleeding with the abdominal cramping, passing large clots at times. Patient states she is soaking through 2 pads and less than an hour. Associated dizzy and lightheadedness. Problem: demise History: Per patient I have considered the following differential diagnoses: Hemorrhage Plan: The patient is actively hemorrhaging, we do not have multifocal button grinder coverage. [facility] Giving morphine Zofran and fluid for her pain. Screening blood type and Rh factor, basic labs and coags. I have independently reviewed the following tests: Labs: No drop in H&H from the 14 of September, no leukocytosis, no electrolyte abnormality, serum quant was 4310, today it is 2526, she is O positive 09/16/24 1932 Jana Lerma MD I saw the patient at bedside with RAZIA Lloyd, I agree with her assessment and plan. Lab Data 09/16/24 18:49 09/16/24 18:49 Labs: Lab Results 09/16/24 Range/Units 18:49 WBC 8.6 (4.8-10.8) X10*3/uL RBC 4.32 (4.20-5.50) X10*6/uL Hgb 12.0 (12.0-16.0) g/dl Hct 35.9 L (37.0-47.0) % MCV 83.1 (80.0-98.0) fL MCH 27.8 (27.0-33.0) pg MCHC 33.4 (31.0-35.0) g/dl RDW 15.5 (11.0-16.0) % Plt Count 280 (160-400) X10*3/uL MPV 9.4 (9.4-12.3) fL Immature Gran % (Auto) 0.3 (0.0-0.4) % Neut % (Auto) 64.5 (45-73) % Lymph % (Auto) 25.5 (20-40) % [place] % (Auto) 7.0 (2-11) % Eos % (Auto) 2.2 (0-4) % Baso % (Auto) 0.5 (0-2) % Lymph # (Auto) 2.2 (1.2-4.9) X10*3/uL [place] # (Auto) 0.6 (0.1-1.2) X10*3/uL Eos # (Auto) 0.2 (0.0-0.4) X10*3/uL Baso # (Auto) 0.0 (0.0-0.2) X10*3/uL Abs Immat Gran (auto) 0.03 (0.00-0.03) X10*3/uL Absolute Neuts (auto) 5.6 (2.0-8.3) x10*3/uL Absolute Nucleated RBC 0.000 (0.0-0.012) X10*3/uL Nucleated RBC % (auto) 0.0 (0.0-0.2) /100WBC Smear Tech's Comments VERIFIED PT 10.7 L (10.9-12.4) SEC INR 0.9 (0.9-1.1) Sodium 138 (135-145) mmol/L Potassium 4.2 (3.3-5.1) mmol/L Chloride 106 (96-108) mmol/L Carbon Dioxide 22 (22-29) mmol/L Anion Gap 14 (12-20) BUN 13 (9-16) mg/dL Creatinine 0.60 (0.5-1.4) mg/dL Estim Creat Clear Calc 154.8 Estimated GFR > 60 Random Glucose 140 H (60-115) mg/dL Calcium 9.3 (8.4-10.2) mg/dL Total Bilirubin 0.3 (0.0-1.0) mg/dL AST 23 (5-31) U/L ALT 12 (0-31) U/L Alkaline Phosphatase 69 (39-117) U/L Total Protein 7.4 (6.5-8.0) g/dL Albumin 4.2 (3.5-5.0) g/dL Beta HCG, Quant 2526 mIU/mL Blood Type O Positive Critical Care Time Critical Care Time Critical Care Time: Yes Total Critical Care Time: 30 Attestation: Elvira Lloyd PA-C have personally performed 30 minutes of critical care time not including lines and procedures.; missed , hemorrhage, consults, organizing transfer Discharge Plan Discharge Clinical Impression: Incomplete Patient Disposition: Xfer [facility] Transfer Details: Transferred to [facility] given need for D&C... We do not have multifocal button grinder coverage today Prescriptions: No Action metronidazole [Flagyl] 500 mg tablet 500 mg PO BID 7 Days Qty: 14 0RF metronidazole [Metrogel Vaginal] 0.75 % gel 1 appful vaginal BEDTIME 5 Days Qty: 70 0RF lidocaine [Lidoderm] 5 % adhesive patch,medicated 1 patch topical DAILY Qty: 15 0RF Rx Instructions: leave on most painful area for up to 12 hrs ibuprofen 600 mg tablet 600 mg PO Q8H PRN (Reason: pain) Qty: 30 0RF ibuprofen 600 mg tablet 600 mg PO Q6H PRN (Reason: pain) Qty: 20 0RF prednisone 20 mg tablet 40 mg PO DAILY 5 Days Qty: 10 0RF cyclobenzaprine 10 mg tablet 10 mg PO TID PRN (Reason: muscle spasm) Qty: 14 0RF zuwjvjdvkd-almfdjjbooevo-sqaz 50-325-40 mg tablet 1 tab PO Q6H PRN (Reason: pain) Qty: 20 0RF cephalexin 500 mg capsule 500 mg PO TID Qty: 20 0RF miconazole nitrate [Monistat 3] 4 % (200 mg)- 2 % (9 gram) comb pack,prefill appl, cream See Rx Instructions .ROUTE .COMPLEX Qty: 24 0RF Rx Instructions: put 1 supp in vagina at bedtime x 3nites;use cream on area outside vagina 2X/day for up to 7days nitrofurantoin monohyd/m-cryst [Macrobid] 100 mg capsule 100 mg PO Q12H 7 Days Qty: 14 0RF Rx Instructions: must administer with a meal/food ibuprofen 800 mg tablet 800 mg PO Q8H PRN (Reason: pain) Qty: 30 0RF prednisone 20 mg tablet 60 mg PO DAILY 4 Days Qty: 12 0RF fluticasone propionate [Flonase Allergy Relief] 50 mcg/actuation spray,suspension 1 spray intranasal BID Qty: 16 0RF Rx Instructions: administer into each nostril cephalexin 500 mg capsule 500 mg PO BID 7 Days Qty: 14 0RF erythromycin 5 mg/gram (0.5 %) ointment 0.5 inch ophthalmic (eye) BID 7 Days Qty: 3.5 0RF amoxicillin-pot clavulanate [Augmentin] 500-125 mg tablet 1 tab PO BID Qty: 14 0RF ibuprofen 800 mg tablet 800 mg PO Q8H PRN (Reason: pain) Qty: 20 0RF fluconazole 150 mg tablet 150 mg PO Q3D Qty: 2 0RF Rx Instructions: Take 1 dose now. If symptoms do not resolve within 72 hours take the 2nd dose. nitrofurantoin monohyd/m-cryst [Macrobid] 100 mg capsule 100 mg PO BID 5 Days Qty: 10 0RF Rx Instructions: must administer with a meal/food metronidazole 500 mg tablet 500 mg PO BID 7 Days Qty: 14 0RF metoclopramide HCl [Reglan] 10 mg tablet 10 mg PO Q6H PRN (Reason: headache,nausea or vomiting) Qty: 14 0RF Vitamin Plus Low Iron 27 mg iron- 1 mg tablet 1 tab PO BEDTIME Qty: 30 11RF Rx Instructions: give with food (meal/snack) terconazole 0.4 % cream 1 appful vaginal BEDTIME 7 Days Qty: 45 0RF Print Language: [place] Islander
[2024-09-16 19:00] LABS: Hematocrit 35.9 % (37.0-47.0); Hemoglobin 12.0 g/dl (12.0-16.0); Imm Gran Abs Auto 0.03 X10*3/uL (0.00-0.03); Imm Gran Pct Auto 0.3 % (0.0-0.4); Lymphocytes Absolute Auto 2.2 X10*3/uL (1.2-4.9); MANUAL DIFF FLAG SCAN; Mean Corpuscular HGB Conc 33.4 g/dl (31.0-35.0); Mean Corpuscular Hemoglobin 27.8 pg (27.0-33.0); Mean Corpuscular Volume 83.1 fL (80.0-98.0); NRBC Abs Auto 0.000 X10*3/uL (0.0-0.012); NRBC Pct Auto 0.0 /100WBC (0.0-0.2); PLT CLUMP 1; Red Blood Count 4.32 X10*6/uL (4.20-5.50); SCAN SMEAR FLAG 1
[2024-09-16 19:15] LABS: Platelet Count 280 X10*3/uL (160-400); White Blood Count 8.6 X10*3/uL (4.8-10.8)
[2024-09-16 19:17] LABS: Alanine Aminotransferase 12 U/L (0-31); Albumin Level 4.2 g/dL (3.5-5.0); Alkaline Phosphatase 69 U/L (39-117); Anion Gap 14 (12-20); Aspartate Amino Transferase 23 U/L (5-31); Blood Urea Nitrogen 13 mg/dL (9-16); Calcium 9.3 mg/dL (8.4-10.2); Carbon Dioxide 22 mmol/L (22-29); Chloride 106 mmol/L (96-108); Creatinine Clr Calc Pharmacy 154.8; Estimated Glomerular Filt Rate > 60; Potassium 4.2 mmol/L (3.3-5.1); Sodium 138 mmol/L (135-145); Total Protein 7.4 g/dL (6.5-8.0)
[2024-09-16 19:21] LABS: INTERNATIONAL NORM RATIO 0.9 (0.9-1.1); Prothrombin Time 10.7 SEC (10.9-12.4)
--- OUTSIDE RECORDS SUMMARY | 2024-09-16 19:33 | XMS_ITS | Clinical Summary ---
Author Organization [facility] Address [address] [place] [address] Care Team Providers Care Director Search Name Role Phone Vannesa Dai ENAMEL BUFFER-C Primary Care Provider [phone] Source Comments PLEASE NOTE, if this patient [...] 2.5 mg /3 mL (0.083 %) nebulizer solutionIndicati ons:Mild persistent asthma with acute exacerbation ([facility]) Take 3 mL by nebulization every 6 (six) hours as needed for wheezing 75 mL 2 11/19/19 22 Active fluticasone (FLONASE) 50 mcg/actuation nasal sprayIndications :Acute non-recurrent maxillary sinusitis SPRAY 1 SPRAY INTO EACH NOSTRIL EVERY DAY 32 mL 1 10/08/19 23 Active meloxicam (MOBIC) 15 mg tabletIndication s:Acute right ankle pain Take 1 Tablet by mouth once daily 90 Tablet 3 11/12/19 23 Active blood-glucose meter monitoring kitIndications:T ype 2 diabetes mellitus without complication, without long-term current use of insulin ([facility]) as needed for blood glucose monitoring Dispense Freeystyle 1 Each 11/27/19 23 Active clonazePAM (KLONOPIN) 0.5 mg tabletIndication s:Generalized anxiety disorder Take 1 Tablet by mouth once daily as needed for anxiety 30 Tablet 05/27/19 24 Active ibuprofen 600 mg tablet Take 1 Tablet by mouth 4 (four) times daily as needed for pain 30 Tablet 1 05/31/19 24 Active APRI 0.15-0.03 mg tablet Take 1 Tablet by mouth once daily 12/16/19 24 Active fluconazole (DIFLUCAN) 150 mg tabletIndication s:Vaginal itching TAKE 1 TABLET BY MOUTH ONCE FOR 1 DOSE TAKE 2ND TABLET IF STILL SYMPTOMATIC AFTER 72 HOURS. 2 Tablet 3 03/06/19 25 Active diclofenac sodium (VOLTAREN) 1 % gelIndications:C hronic pain of right knee APPLY TO AFFECTED AREA TWICE A DAY 100 g 3 03/07/19 25 Active blood sugar diagnostic (FREESTYLE LITE STRIPS) stripsIndication s:Type 2 diabetes mellitus without complication, without long-term current use of insulin ([facility]) NEEDED FOR HIGH BLOOD SUGAR CHECK GLUCOSE TWICE DAILY 100 Each 5 04/18/19 25 Active dulaglutide (TRULICITY) 4.5 mg/0.5 mL pen injectorIndicati ons:Type 2 diabetes mellitus without complication, without long-term current use of insulin ([facility]),Medicat ion management Inject 4.5 mg into the skin once a week 2 mL 2 06/15/19 25 Active fexofenadine (CHRISTIANO) 180 mg tabletIndication s:Itch of right eye,Dry eye Take 1 Tablet by mouth once daily as needed for allergies 90 Tablet 06/15/19 25 Active cycloSPORINE (RESTASIS) 0.05 % ophthalmic emulsionIndicati ons:Itch of right eye,Dry eye Place 1 Drop into both eyes every 12 (twelve) hours 60 mL 06/15/19 25 Active mometasone-formo terol (DULERA) 200-5 mcg/actuation inhalerIndicatio ns:Mild persistent asthma without complication ([facility]) Inhale 2 Puffs into the lungs 2 (two) times daily 13 g 1 06/15/19 25 Active inhalational spacing deviceIndication s:Mild persistent asthma without complication ([facility]) UAD 1 Each 06/15/19 25 Active lancets (FREESTYLE LANCETS) 28 gaugeIndications :Type 2 diabetes mellitus with hyperglycemia, without long-term current use of insulin ([facility]) USE TO CHECK BLOOD SUGAR TWICE DAILY 100 Each 07/04/19 25 Active lidocaine (LIDODERM) 5 % patchIndications :Chronic pain of right knee PLACE 1 PATCH ONTO THE SKIN DAILY APPLY 1 PATCH TO THE AFFECTED AREA FOR A MAXIMUM OF 12 HOURS, FOLLOWED BY REMOVAL FOR 12 HOURS. 30 Patch 08/10/19 25 Active M-ANDERSON PLUS Take 1 Tablet by mouth once daily. 07/09/19 25 Active MISCELLANEOUS MEDICAL SUPPLY MISCIndications: Type 2 diabetes mellitus with hyperglycemia, without long-term current use of insulin ([facility]) by miscellaneous route daily Please dispense sharps container. 1 Each 08/10/19 25 Active alcohol swabsIndications :Type 2 diabetes mellitus with hyperglycemia, without long-term current use of insulin ([facility]) Clean site prior to checking blood sugar or injecting insulin. 200 Each 08/10/19 25 Active glucose 4 gram chewable tabletIndication s:Type 2 diabetes mellitus with hyperglycemia, without long-term current use of insulin ([facility]) Place 4 Tablets into mouth, chew and swallow as needed for low blood sugar. 90 Tablet 1 08/10/19 25 Active insulin glargine (LANTUS SOLOSTAR U-100 INSULIN) 100 unit/mL (3 mL) penIndications:T ype 2 diabetes mellitus with hyperglycemia, without long-term current use of insulin ([facility]),Medicat ion management,Pregn markel, unspecified gestational age ([facility]) Inject 10 Units into the skin nightly at bedtime. 15 mL 08/10/19 25 Active blood-glucose,re ceiver,cont (DEXCOM G7 CUSTOMER ACCOUNT EXECUTIVE) miscIndications: Type 2 diabetes mellitus with hyperglycemia, without long-term current use of insulin ([facility]),Medicat ion management,Pregn markel, unspecified gestational age ([facility]) Use as needed for continuous glucose monitoring.. 1 Each 08/10/19 25 Active pen needle, diabetic (BINH 2ND GEN PEN NEEDLE) 32 gauge x 5/32 ndleIndications: Type 2 diabetes mellitus with hyperglycemia, without long-term current use of insulin ([facility]) Use once daily with lantus. 100 Each 2 08/10/19 25 Active blood-glucose sensor (DEXCOM G7 SENSOR) deviIndications: Type 2 diabetes mellitus with hyperglycemia, without long-term current use of insulin ([facility]),Medicat ion management,Pregn markel, unspecified gestational age ([facility]) USE DIRECTED FOR CONTINUOUS GLUCOSE MONITORING... 3 Each 3 08/11/19 25 Active JARDIANCE 25 mg tabIndications:T ype 2 diabetes mellitus with hyperglycemia, without long-term current use of insulin ([facility]) TAKE 1 TABLET BY MOUTH EVERY DAY IN THE MORNING 30 Tablet 2 08/14/19 Active VENTOLIN HFA 90 mcg/actuation inhalerIndicatio ns:Mild persistent asthma with acute exacerbation ([facility]) INHALE 2 PUFFS INTO THE LUNGS EVERY 4 TO 6 HOURS NEEDED FOR SHORTNESS OF BREATH OR WHEEZING 54 Each 1 08/17/19 Active Active Problems Problem Noted Date Diagnosed Date Generalized anxiety disorder 04/28/2023 Type 2 diabetes mellitus wit hout complication, without long-term current use of insulin ([facility]) 02/07/2023 Chronic pain of right knee 06/02/2022 Seasonal allergies 01/05/2022 Migraines 01/05/2022 History of section 01/05/2022 Obesity, Class I, BMI 30-34.9 01/05/2022 Diabetes, gestational ([facility]) 09/29/2021 ADHD (attention deficit hyperactivity disorder) Bipolar II disorder ([facility]) Anxiety Mild persistent asthma with acute exacerbation ( [facility]) Comments Yes Resolved Problems Problem Noted Date Diagnosed Date Resolved Date Disorder of intrauterine con traceptive device ([facility] V24) 01/05/2022 06/14/2024 Homelessness 04/13/2018 06/14/2024 Hypoglycemia 09/16/2017 Encounters Date Type Department Care Team Description 08/21/2024 Interim Notes [address] [phone] Vannesa Dai FNP-C 08/14/2024 Interim Notes [address] [phone] Arely Bledsoe [place] 08/09/2024 11:20 AM EDT Office Visit [address] [phone] Mynor Garcia, PharmD 06/29/2024 Interim Notes [address] [phone] Eduarda Friend [place] from Last 3 Months [...] 04/23/2004 Imm-Hepatitis B (1 of 3 - 19 + 3-dose series) 04/23/2010 Cervical Cancer Screening 09/30/2017 Pap Smear 09/30/2017 09/30/2014 (Dorcas covarrubias by Outside Provider) [id number] ( season) 2023 022, 12/10/2020 Imm-Influenza (#1) 2024 10/30/2018 Hemoglobin A1c 11/09/2024 08/09/2024, 03/24, 09/20/2023, Additional history exists Annual Wellness (Adult): Indicated (All Coverage) 06/14/2025 06/14/2024, 04/19/2022, 09/16/2017, Additional history exists Anxiety Screening 06/14/2025 06/14/2024 Relationship Safety Screening/Counseling 06/14/2025 06/14/2024, 11/26/2022, 09/29/2021 Serum Creatinine 06/14/2025 06/14/2024, , 04/26/2022, Additional history exists Urine Albumin Creatinine Rat io Screening 06/14/2025 06/14/2024, 04/18/2023 Hypertension Screening (#1) 08/09/2025 Tobacco Screening 08/09/2025 08/09/2024, , 11/26/2022 Lipid Screening 06/14/2029 06/14/2024, 07, 04/26/2022, Additional history exists Hepatitis C Screening [...] 11:57 AM EDT , unspecified gestational age ([facility]) GLYCOSYLATED (A1C) DEVICE (CLIA WAIVED) POCT Routine 08/09/2024 11:46 AM EDT Type 2 diabetes mellitus with hyperglycemia, without long-term current use of insulin ([facility]) GLUCOSE, BLOOD BY GLUCOSE MONITORING DEVICE (CLIA WAIVED)POCT Routine 08/09/2024 11:32 AM EDT Type 2 diabetes mellitus with hyperglycemia, without long-term current use of insulin ([facility]) IMAGING SCANNED DOCUMENT 08/06/2024 3:00 AM EDT [...] EDT Routine general medical examination at a health care facility LIPID PANEL Routine 06/14/2024 4:36 PM EDT Routine general medical examination at a health care facility Type 2 diabetes mellitus without complication, without long-term current use of insulin ([facility]) MICROALBUMIN/CREATININ E RATIO, URINE, RANDOM Routine 06/14/2024 4:36 PM EDT Routine general medical examination at a health care facility Type 2 diabetes mellitus without complication, without long-term current use of insulin ([facility]) RFLX - REFLEXIVE URINE CULTURE Routine 04/26/2022 11:37 AM EST HEPATITIS C AB W/RFLX HCV RNA, QT, RT PCR Routine 04/26/2022 11:37 AM EST Routine general medical examination at a peoples hospital care facility from Last 3 Months or Most Recently Relevant to Health Maintenance Results * MEDICATIONS SCANNED DOCUMENT (08/14/2024 3:00 AM EDT) Only the most recent of2 resultswithin the time period is included. 08/14/2024 3:00 AM EDT Vannesa VILLASEÑORP-Mario SCAN MEDS OTHER ORDERS Fi nal Result * (ABNORMAL) HCG URINE MCKESSON (POCT) Urine Routine (08/09/2024 11:57 AM EDT) URINE HCG POSITIVE(A ) NEGATIVE [facility] POCT INTERNAL CONTROL PASS PASS [facility] POCT Urine Urine specimen / Unknown 08/09/2024 11:57 AM EDT Mynor Klinel PharmD LAB URINE AMBULATORY Final Result [facility] POCT * (ABNORMAL) GLYCOSYLATED (A1C) DEVICE (CLIA WAIVED) POCT Routine (08/09/2024 11:46 AM EDT) HGB A1C 7.5(A) 4.2 - 6.5 % [facility] OFFICE POCT Capillary Blood Blood / Unknown 11:46 AM EDT Mynor Antil PharmD LAB - BLOOD DRAW Final Resu lt [facility] OFFICE POCT * (ABNORMAL) GLUCOSE, BLOOD BY GLUCOSE MONITORING DEVICE (CLIA WAIVED)POCT Routine (08/09/2024 11:32 AM EDT) GLUCOSE 192(A) 70 - 100 mg/dL [facility] OFFICE POCT Capillary Blood Blood / Unknown 11:32 AM EDT Mynor Antil PharmD LAB - BLOOD DRAW Final Resu lt [facility] OFFICE POCT * IMAGING SCANNED DOCUMENT (08/06/2024 3:00 AM EDT) 08/06/2024 3:00 AM EDT Vannesa Hopkinsri ENAMEL BUFFER-C SCAN IMAGING Final Res ult * HIV 1/2 AG & AB W/RFLX (4TH GEN) (06/14/2024 4:36 PM EDT) HIV AG/AB, 4TH GEN NON-REAC TIVE NON-REAC TIVE [facility] Comment: HIV-1 antigen and HIV-1/HIV-2 antibodies were [...] purpose. For additional information please refer to http://G-mode.FreeLunched/faq/EZI703 (This link is being provided for informational/ educational purposes only.) The performance of this assay has not been clinically validated in patients less than 2 years old. Blood Blood / Unknown 06/14/2024 4 :36 PM EDT 06/14/2024 4:37 PM EDT Narrative [email or web address] [facility] - 06/15/2024 5:52 PM EDT FASTING:NO Vannesa VILLASEÑORP-C LAB - BLOOD DRAW Final Re sult Performing Organization Address City/[facility] [address]/[place] Co de Phone Number [facility] [address] [address], [facility] [address] [address] * CHLAMYDIA/GONORRHOEAE RNA, TMA, URINE (06/14/2024 4:36 PM EDT) CHLAMYDIA TRACHOMATIS RNA, TMA NOT DETECTED NOT DETECTED [facility] NEISSERIA GONORRHOEAE RNA, TMA NOT DETECTED NOT DETECTED [facility] COMMENT [facility] Urine Urine specimen / Unknown 06/14/2024 4:36 PM EDT 06/14/2024 4:37 PM EDT [email or web address] [facility] - 06/15/2024 5:52 PM EDT FASTING:NO The analytical performance characteristics of this assay, when used to test SurePath(TM) specimens have been determined by [employer]. The modifications have not been cleared or approved by the FDA. This assay has been validated pursuant to the CLIA regulations and is used for clinical purposes. For additional information, please refer to https://G-mode.FreeLunched/faq/JOD200 (This link is being provided for information/ educational purposes only.) Vannesa VILLASEÑORP-C LAB BODY FLUIDS AND STOOL S AMBULATORY Edited Result - Final [facility] [address] [address], [employer] [address] [address] * RPR (MONITOR) W/REFL TITER (06/14/2024 4:36 PM EDT) RPR (MONITOR) W/REFL TITER NON-REACT DORA NON-REACT DORA [facility] Blood Blood / Unknown 06/14/2024 4 :36 PM EDT 06/14/2024 4:37 PM EDT [employer]ative [email or web address] [facility] - 06/15/2024 5:52 PM EDT FASTING:NO us Granado Suhas ENAMEL BUFFER-C LAB - BLOOD DRAW Edited R esult - Final Performing Organization Address [facility] [address]/[facility] de Phone Number [facility] [address] [address], [employer] [address] [address] * MICROALBUMIN/CREATININE RATIO, URINE, RANDOM (06/14/2024 4:36 PM EDT) CREATININE, RANDOM URINE 68 20 - 275 mg/dL [facility] MICROALBUMIN 0.6 mg/dL [employer] [facility] Comment: Reference Range Not established MICROALBUMIN/CREA TININE RATIO, RANDOM URINE 9 <30 mg/g creat [facility] Comment: The ADA defines abnormalities in [...] 4:36 PM EDT 06/14/2024 4:37 PM EDT [email or web address] [facility] - 06/15/2024 5:52 PM EDT FASTING:NO us Aloonee Suhas ENAMEL BUFFER-C LAB URINE AMBULATORY Liz l Result Performing Organization Address [facility] [address]/ZIP Co de Phone Number [facility] [address] [address], [facility] [address] [address] * LIPID PANEL (06/14/2024 4:36 PM EDT) CHOLESTEROL, TOTAL 183 <200 mg/dL [facility] HDL CHOLESTEROL 61 > OR = 50 mg/dL [facility] TRIGLYCERIDES 145 <150 mg/dL [facility] LDL-CHOLESTEROL 97 99 mg/dL (calc) [facility] Comment: Reference range: <100 Desirable range <100 mg/dL for primary prevention; <70 mg/dL for patients with CHD or diabetic patients with > or = 2 CHD risk factors. LDL-C is now calculated using the Clarence calculation, which is a validated novel method providing better accuracy than the Friedewald equation in the estimation of LDL-C. Kin SS et al. CHRIST. 2013;310(19): 2474-7710 (http://education.[employer]/faq/ZSL426) CHOL/HDLC RATIO 3.0 <5.0 (calc) [facility] NON-HDL CHOLESTEROL 122 <130 mg/dL (calc) [facility] Comment: For patients with diabetes plus 1 major ASCVD risk factor, treating to a non-HDL-C goal of <100 mg/dL (LDL-C of <70 mg/dL) is considered a therapeutic option. Blood Blood / Unknown 06/14/2024 4 :36 PM EDT 06/14/2024 4:37 PM EDT Narrative [facility] - 06/15/2024 5:52 PM EDT FASTING:NO us Vannesa Dai ENAMEL BUFFER-C LAB - BLOOD DRAW Final Re sult Performing Organization Address [facility] [address]/ZIP Co de Phone Number [facility] [address] [address], [facility] [address] [address] * COMPREHENSIVE METABOLIC PANEL (06/14/2024 4:36 PM EDT) GLUCOSE 105 65 - 139 mg/dL [facility] Comment: Non-fasting reference interval UREA NITROGEN (BUN) 11 7 - 25 mg/dL [facility] CREATININE (blood) 0.56 0.50 - 0.97 mg/dL [facility] EGFR 124 > OR = 60 mL/min/1. 73m2 [facility] BUN/CREATININE RATIO SEE NOTE: [facility] Comment: Not Reported: BUN and Creatinine are within reference range. SODIUM 137 135 - 146 mmol/L [facility] POTASSIUM 4.0 3.5 - 5.3 mmol/L [facility] CHLORIDE 102 98 - 110 mmol/L [facility] CARBON DIOXIDE 26 20 - 32 mmol/L [facility] CALCIUM 9.9 8.6 - 10.2 mg/dL [facility] PROTEIN, TOTAL 7.0 6.1 - 8.1 g/dL [facility] ALBUMIN 4.4 3.6 - 5.1 g/dL [facility] GLOBULIN 2.6 1.9 - 3.7 g/dL (calc) [facility] ALBUMIN/GLOBULI N RATIO 1.7 1.0 - 2.5 (calc) [facility] BILIRUBIN, TOTAL 0.4 0.2 - 1.2 mg/dL [facility] ALKALINE PHOSPHATASE 77 31 - 125 U/L [facility] AST 19 10 - 30 U/L [facility] ALT 20 6 - 29 U/L [facility] Blood Blood / Unknown 06/14/2024 4 :36 PM EDT 06/14/2024 4:37 PM EDT Narrative [facility] - 06/15/2024 5:52 PM EDT FASTING:NO us Vannesa Dai ENAMEL BUFFER-C LAB - BLOOD DRAW Edited R esult - Final [facility] [address] [address], [facility] [address] [place] [address] * Hep C Antibody with Reflex HCV RNA (04/26/2022 11:37 AM EST) Pathologist [facility] HEPATITIS C ANTIBODY NON-REACT DORA NON-REACT DORA [facility] SIGNAL TO CUT-OFF 0.09 <1.00 [facility] Comment: HCV antibody was non-reactive. There is no laboratory evidence of HCV infection. In most cases, no further action is required. However, if recent HCV exposure is suspected, a test for HCV RNA (test code 88153) is suggested. For additional information please refer to http://education.FreeLunched/faq/IUQ70q4 (This link is being provided for informational/ educational purposes only.) Blood Blood / Unknown 04/26/2022 1 1:37 AM EST 04/26/2022 11:38 AM EST Narrative [facility] - 04/29/2022 1:27 AM EST FASTING:YES Peer39ik[employer] ENAMEL BUFFER-C LAB - BLOOD DRAW Edited R esult - Final Performing Organization Address City/[facility] [address]/ZIP Co de Phone Number [facility] [address] [address], [facility] [address] ([facility] [place] [address] * RFLX - REFLEXIVE URINE CULTURE (04/26/2022 11:37 AM EST) REFLEXIVE URINE CULTURE See Below [facility] Comment:CULTURE INDICATED - RESULTS TO FOLLOW 04/26/2022 11:3 7 AM EST 04/26/2022 11:38 AM EST Narrative [facility] - 04/29/2022 1:27 AM EST FASTING:YES Peer39ik[employer] ENAMEL BUFFER-C LAB - MICROBIOLOGY AMBULA TORY Edited Result - Final Performing Organization Address City/[facility] [address]/[place] Co de Phone Number [facility] [address] [address], [facility] [address] ([facility]) [place] [address] from Last 3 Months or Most Recently Relevant to Health Maintenance Insurance [place] [employer] [facility] [id number] ACO Care Teams Director Search Relationship Specialty Start Date End Date Vannesa Dai FNP-C [address] [place] [address] PCP - General Internal Medicine 01/05/22
--- OUTSIDE RECORDS SUMMARY | 2024-09-16 19:33 | XMS_ITS | Clinical Summary ---
Author Organization [facility] Address [address] [place] [address] Care Team Providers Care Telephone Station Repairer Name Role Phone Unavailable Primary Care Provider [...] Screening: P ap Smear 04/23/2012 COVID-19 Vaccine (1 - 2023-2 5 season) 2023 Depression Screening 02/22/2024 Influenza Vaccine (#1) 2024 HIB Vaccines Aged Out No longer [...] 5 Years) and At-Risk Patients (6 to 49 Years) Aged Out No longer eligible b ased on patient's age to complete this topic RSV Immunization Patients Un treva 20 months Aged Out No longer eligible b ased on patient's age to complete this topic Varicella Vaccines Aged Out No longer eligible based on patient's age to complete this topic
--- OUTSIDE RECORDS SUMMARY | 2024-09-16 19:33 | XMS_ITS | Clinical Summary ---
Author Organization [employer] Address [address] [facility] [address] [place] [address] Care Team Providers Care City Plant Supervisor Name Role Phone Unavailable Primary Care Provider Unavailabl e Encounters Date Type Department Care Team Description 09/03/2024 9:15 AM EDT Office Visit [facility] [address] [place] [address] Trent, Payton, OD Myopia of both eyes [...] patient's age to complete this topic Insurance [facility] [id number]
--- OUTSIDE RECORDS SUMMARY | 2024-09-16 19:33 | XMS_ITS | Clinical Summary ---
Author Organization [address] Address [address] [place] [phone] Phone Care Team Providers Care Rn Surgical Pcu Name Role Phone No, Pcp (Do Not Change Name) Primary Care Provid er Unavailable Allergies Active Allergy Reactions Criticality Noted Date Comments Latex, Natural Rubber 07/09/2014 Medications PNV [id number]-dha-epa 3.33 mg iron- 0.33 mg Chew [...] age 5 2 Overview (07/09/2021): Referred by: [facility] intake date: 06/25/21 Pre- BMI 32 kg/m^2 [...] 12/2020 and 03/2021 : BCM: considering BTL [place] feeding: discussed date, plans to Early PP [...] Initial meeting with Diabetic Nurse Educator: 06/29/21 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 --> Request for records from Corky's office placed 06/25 2016: pLTCD ~37 weeks in [place] Asthma 05/27/2021 Overview (06/25/2021): ASTHMA Brief hx: [...] things needed for daily living? No 06/11/2021 [place] Depression Scale Answer Date Recorded [Retired] [place] Depression Score 5 06/25/2021 [Retired] EPD Scale: [...] Associated Diagnosis Comments HIV-1/HIV-2 ANTIBODY/ANTIGEN SCREEN W/REFLEX ([facility]) Routine 06/15/2021 10:45 AM EDT , unspecified gestational age HEPATITIS C AB WITH REFLEX TO HCV PCR Routine 06/15/2021 10:45 AM EDT , unspecified gestational age from Last 3 Months or Most Recently Relevant to Health Maintenance Results * HIV-1/HIV-2 antibody/antigen screen w/reflex ([facility]) (06/15/2021 10:45 AM EDT) HIV 1 and 2 Antibody/Antigen Screen Negative Negative 06/15/2021 5:38 PM EDT [facility] DEPARTMENT OF LABORATORY MEDICINE Comment:Interpretation: [...] HEALY LAB BLOOD ORDERABLES Final Res ult [facility] DEPARTMENT OF LABORATORY MEDICINE [address] [place] [id number], [facility] [phone] * Hepatitis C Ab with reflex to HCV PCR (06/15/2021 10:45 AM EDT) Hepatitis C Antibody Negative Negative 06/15/2021 5:38 PM EDT [facility] DEPARTMENT OF LABORATORY MEDICINE Comment:A [...] HEALY LAB BLOOD ORDERABLES Final Res ult [facility] DEPARTMENT OF LABORATORY MEDICINE [address] [place] [address] from Last 3 Months or Most Recently Relevant to Health Maintenance Insurance [place] Care Teams Rn Surgical Pcu Relationship Specialty Start Date End Date No, Pcp (Do Not Change Name) PCP - General 07/09/14
--- NOTE | 2024-09-16 19:40 | PC.NURSE ---
nurse to nurse given to NOEMI Medina @ [facility] [phone] pt to be transferred via [facility].
--- NOTE | 2024-09-16 19:58 | PC.NURSE ---
Late Entry Patient arrived to ED via EMS, immediately asking to go to the bathroom to change her pad. Patient able to walk off EMS stretcher to BR with steady gait. Patient in BR x minutes, activated emergency help button for assistance. Casandra MACN to BR, immediately asking for additional assistance and an ED provider. Patient was found to be sitting on the toilet actively bleeding from vagina, profusely sobbing d/t pain/emotional situation. Patient cleaned up, Bianka RANDLE assessed patient initially in BR, then was walked to pelvic stretcher with minimal assistance. Bianka medel eval'd patient in ED 25, vaginal bleeding was noted to not amy, additional approximately 700 ccs suctioned out of patient via [place]/Gauze making for a total of approximately 1.5L blood loss (home, EMS, in dept) Patient in significant amount lower abd pain/cramping. Provider decision to transfer to [facility], patient aware of need of transfer, family informed. US IV placed. Pain meds given/1L bolus running. Patient presently sitting up on stretcher, VSS, speaking with family on phone. Casandra FINCH gave nurse to nurse report to staff at [facility], currently awaiting EMS for transfer.
--- NOTE | 2024-09-16 20:20 | PC.NURSE ---
pt transferred via [facility] with all belongings to [facility]
== END 2024-09-16 20:22 | disposition short-term general hospital (02) ==
PROVIDERS: Physician Assistant Medical; Emergency Provider Emergency Medicine; PCP Registered Nurse
DX: O03.4 Incomplete spontaneous abortion without complication (principal); N93.9 Abnormal uterine and vaginal bleeding, unspecified; R10.2 Pelvic and perineal pain; R42 Dizziness and giddiness; R11.0 Nausea; Z79.899 Other long term (current) drug therapy
CPT/HCPCS: 36415; 80053; 84702; 85025; 85610; 86900; 86901; 96361; 96374; 96376; 99285; J2270; J2405

== ENCOUNTER 2025-01-14 08:59 | Emergency (ER) | payer MEDICAID, SELFPAY ==
[2025-01-14 09:03] VITALS: BP 126/57; PULSE 80; RESP 16; TEMP 36.8; O2SAT 98; BMI 30.2
[2025-01-14 09:43] LABS: Appearance Urine Clear; Glucose Urine UA >=1000 mg/dL (Negative); PH 5.0 (5.0-9.0); Specific Gravity - Urine >= 1.030 (1.005-1.025); UMIC TRIGGER UACC YES
[2025-01-14 09:45] LABS: UPreg QC Valid YES
--- NOTE | 2025-01-14 10:45 | ED_ITS ---
HPI - General Adult General Chief complaint: General Medical Stated complaint: Urinary Symptoms Time Seen by Provider: 01/14/25 10:04 Source: patient Mode of arrival: ambulatory Limitations: no limitations History of Present Illness HPI narrative: This is a 34 years old female presented to the ED with multiple somatic complaint which include urinary frequency, elevated blood sugar, heavy menstrual period, rash in the left groin Onset (ago): day(s) (2) Location: genitals Radiation: non-radiation Severity: moderate Quality: burning Pain Consistency: constant Relieving factors: none Exacerbating factors: none Related Data Previous Rx's ?Medication ?Instructions ?Recorded ibuprofen 600 mg tablet 600 mg PO Q8H PRN pain #30 t abs 01/30/20 lidocaine 5 % topical patch 1 patch topical DAILY #15 ea 01/30/20 (Lidoderm) ibuprofen 600 mg tablet 600 mg PO Q6H PRN pain #20 t abs 02/03/20 vitamins with calcium 1 tab PO BEDTIME #30 ta bs 03/10/20 no.72-iron 27 mg-folic acid 1 mg tablet ( Vitamins Plus Low Iron) metronidazole 500 mg tablet 500 mg PO BID 7 days #14 t abs 03/21/20 (Flagyl) metronidazole 0.75 % (37.5 mg/5 1 appful vaginal BEDTI ME 5 days 03/25/20 gram) vaginal gel (Metrogel #70 grams Vaginal) prednisone 20 mg tablet 40 mg (2 x 20 mg) PO DAILY 5 days 05/27/20 #10 tabs relmswdxdt-rosgfxvihwqlq-wgjshbdl 1 tab PO Q6H PRN lucita n #20 tabs 06/26/20 50 mg-325 mg-40 mg tablet cyclobenzaprine 10 mg tablet 10 mg PO TID PRN muscle s pasm #14 06/26/20 tabs cephalexin 500 mg capsule 500 mg PO BID 7 days #14 cap s 12/20/20 erythromycin 5 mg/gram (0.5 %) eye 0.5 inch ophthalmic (eye) BID 7 12/20/20 ointment days #3.5 grams terconazole 0.4 % vaginal cream 1 appful vaginal BEDTI ME 7 days 03/10/21 #45 grams cephalexin 500 mg capsule 500 mg PO TID #20 caps 08/07 miconazole nitrate 4 % (200 mg)-2 See Rx Instructions vaginal 11/15/21 % (9 gram)vaginal,prefill .COMPLEX #24 grams appl,cream (Monistat 3) nitrofurantoin 100 mg PO Q12H 7 days #14 ca ps 11/18/21 monohydrate/macrocrystals 100 mg capsule (Macrobid) ibuprofen 800 mg tablet 800 mg PO Q8H PRN pain #30 t abs 02/06/22 prednisone 20 mg tablet 60 mg (3 x 20 mg) PO DAILY 4 days 02/06/22 #12 tabs fluticasone propionate 50 1 spray intranasal BID #16 g deepak 03/10/22 mcg/actuation nasal spray,suspension (Flonase Allergy Relief) fluconazole 150 mg tablet 150 mg PO Q3D 2 doses #2 tab s 01/16/23 nitrofurantoin 100 mg PO BID 5 days #10 cap s 01/16/23 monohydrate/macrocrystals 100 mg capsule (Macrobid) metronidazole 500 mg tablet 500 mg PO BID 7 days #14 t abs 01/19/23 amoxicillin 500 mg-potassium 1 tab PO BID #14 tabs clavulanate 125 mg tablet (Augmentin) ibuprofen 800 mg tablet 800 mg PO Q8H PRN pain #20 t abs 03/13/24 metoclopramide HCl 10 mg tablet 10 mg PO Q6H PRN head ache,nausea 07/26/24 (Reglan) or vomiting #14 tabs clotrimazole-betamethasone 1 1 appl topical BID #15 gr ams 01/14/25 %-0.05 % topical cream Allergies Allergy/AdvReac Type Severity Reaction Status Date / Time methylphenidate (From Allergy Unknown Swelling Verified 01/14/25 09:04 CONCERTA) nickel (NICKEL) Allergy Unknown HIVES Verified 01/14/25 09:04 latex Allergy Unknown Verified 01/14/25 09:04 ibuprofen AdvReac Rash Verified 01/14/25 09:04 Review of Systems 2 Constitutional: Constitutional: Reports no additional constitutional complaints ENT: Reports system reviewed and no additional complaints, except as documented Gastrointestinal: Gastrointestinal: Reports no additional gastrointestinal complaints [facility] Past Medical History Attestation statement: The following information was validated with the patient. Source: unable to obtain Medical History Asthma delivery delivered Social History Social History Alcohol intake: never Advance Directives: No Advance Directives Information Provided: Yes Sexual orientation: Straight/Heterosexual Physical Exam ED Exam Exam: No acute distress comfortable in the stretcher Vital Signs: Vital Signs - 24 hr 01/14/25 09:03 Temperature 98.2 F Pulse Rate 80 Respiratory Rate 16 Blood Pressure 126/57 L Pulse Oximetry 98 Oxygen Delivery Method Room Air BMI result Body Mass Index 30.2 Const General: cooperative Nutritional Appearance: well nourished Orientation/consciousness: patient oriented x3 HENMT Head: Yes normal to inspection Ears: hearing grossly normal bilaterally General nose exam: Normal external nose present Face and sinus: Yes normal facial exam Mouth: Normal oral and palatal mucosa present Teeth and gingiva: dentition normal Throat: Yes posterior oropharynx normal Neck Neck: Yes normal visual inspection and Yes full ROM Chest Chest palpation & inspection: normal inspection of the chest Resp Effort & Inspection: normal respiratory effort Auscultation: clear to auscultation bilaterally Cardio Jugular venous distension: no JVD Rate: regular rate Rhythm: regular rhythm GI Inspection: Yes normal to inspection Palpation (GI): Soft to palpation, not firm and nontender Auscultation: normal bowel sounds Skin Other: Slight redness in the left groin Neuro General: patient oriented x3 Medical Decision Making Medical Decision Making [facility] Narrative: Patient is here with multiple complaints including difficult to urinate, elevated blood sugar rash in the groin we will check a CBC and chemistry 11:35 labs resulted normal she has a normal white count, chemistry is essentially normal there is no evidence of DKA, UA shows no evidence of urinary tract infection hCG is negative. She is afebrile she is not toxic. At this point we will discharge the patient home I will give a steroid cream for the rash in the groin Differential Diagnosis Differential Diagnoses: The differential diagnosis associated with the presentation includes UTI/DKA Lab Data [facility] Lab Attestation statement: I reviewed the patient's lab results. 01/14/25 10:57 01/14/25 10:57 Labs: Lab Results 01/14/25 01/14/25 Range/Units 09:34 10:57 WBC 6.6 (4.8-10.8) X10*3/uL RBC 4.90 (4.20-5.50) X10*6/uL Hgb 11.9 L (12.0-16.0) g/dl Hct 38.5 (37.0-47.0) % MCV 78.6 L (80.0-98.0) fL MCH 24.3 L (27.0-33.0) pg MCHC 30.9 L (31.0-35.0) g/dl RDW 16.4 H (11.0-16.0) % Plt Count 433 H D (160-400) X10*3/uL MPV 8.8 L (9.4-12.3) fL Immature Gran % (Auto) 0.3 (0.0-0.4) % Neut % (Auto) 56.6 (45-73) % Lymph % (Auto) 33.9 (20-40) % Weber % (Auto) 7.0 (2-11) % Eos % (Auto) 1.7 (0-4) % Baso % (Auto) 0.5 (0-2) % Lymph # (Auto) 2.2 (1.2-4.9) X10*3/uL Weber # (Auto) 0.5 (0.1-1.2) X10*3/uL Eos # (Auto) 0.1 (0.0-0.4) X10*3/uL Baso # (Auto) 0.0 (0.0-0.2) X10*3/uL Abs Immat Gran (auto) 0.02 (0.00-0.03) X10*3/uL Absolute Neuts (auto) 3.7 (2.0-8.3) x10*3/uL Absolute Nucleated RBC 0.000 (0.0-0.012) X10*3/uL Nucleated RBC % (auto) 0.0 (0.0-0.2) /100WBC Sodium 137 (135-145) mmol/L Potassium 4.1 (3.3-5.1) mmol/L Chloride 104 (96-108) mmol/L Carbon Dioxide 22 (22-29) mmol/L Anion Gap 15 (12-20) BUN 11 (9-16) mg/dL Creatinine 0.63 (0.5-1.4) mg/dL Estim Creat Clear Calc 149.1 Estimated GFR > 60 Random Glucose 198 H (60-115) mg/dL Calcium 9.6 (8.4-10.2) mg/dL Total Bilirubin 0.3 (0.0-1.0) mg/dL AST 20 (5-31) U/L ALT 18 (0-31) U/L Alkaline Phosphatase 95 (39-117) U/L Total Protein 7.7 (6.5-8.0) g/dL Albumin 4.6 (3.5-5.0) g/dL Urine Color Yellow Urine Appearance Clear Urine pH 5.0 (5.0-9.0) Ur Specific [place] >= 1.030 H (1.005-1.025) Urine Protein Negative (Neg-Trace) mg/dL Urine Glucose (UA) >=1000 H (Negative) mg/dL Urine Ketones Negative (Negative) mg/dL Urine Blood Moderate (2+) H (Negative) Urine Nitrite Negative (Negative) Ur Leukocyte Esterase Negative (Negative) Urine RBC 0-2 (0-2) /HPF Urine WBC 0-5 (0-5) /HPF Ur Squamous Epith Cells 11-20 (0-2) /HPF Urine Bacteria 1+ (None Seen) Hyaline Casts 0-2 (0-2) /LPF Urine Test NEGATIVE (NEGATIVE) Discharge Plan Discharge Clinical Impression: Dysuria, Hyperglycemia, Rash Patient Disposition: Home, Self-Care Instructions: Acute Rash (ED), Dysuria (ED) Prescriptions: New clotrimazole-betamethasone 1-0.05 % cream 1 appl topical BID Qty: 15 0RF Rx Instructions: apply rash prn No Action metronidazole [Flagyl] 500 mg tablet 500 mg PO BID 7 Days Qty: 14 0RF metronidazole [Metrogel Vaginal] 0.75 % gel 1 appful vaginal BEDTIME 5 Days Qty: 70 0RF lidocaine [Lidoderm] 5 % adhesive patch,medicated 1 patch topical DAILY Qty: 15 0RF Rx Instructions: leave on most painful area for up to 12 hrs ibuprofen 600 mg tablet 600 mg PO Q8H PRN (Reason: pain) Qty: 30 0RF ibuprofen 600 mg tablet 600 mg PO Q6H PRN (Reason: pain) Qty: 20 0RF prednisone 20 mg tablet 40 mg PO DAILY 5 Days Qty: 10 0RF cyclobenzaprine 10 mg tablet 10 mg PO TID PRN (Reason: muscle spasm) Qty: 14 0RF codjkhrswi-dygzgxlgfzwgr-ublt 50-325-40 mg tablet 1 tab PO Q6H PRN (Reason: pain) Qty: 20 0RF cephalexin 500 mg capsule 500 mg PO TID Qty: 20 0RF miconazole nitrate [Monistat 3] 4 % (200 mg)- 2 % (9 gram) comb pack,prefill appl, cream See Rx Instructions .ROUTE .COMPLEX Qty: 24 0RF Rx Instructions: put 1 supp in vagina at bedtime x 3nites;use cream on area outside vagina 2X/day for up to 7days nitrofurantoin monohyd/m-cryst [Macrobid] 100 mg capsule 100 mg PO Q12H 7 Days Qty: 14 0RF Rx Instructions: must administer with a meal/food ibuprofen 800 mg tablet 800 mg PO Q8H PRN (Reason: pain) Qty: 30 0RF prednisone 20 mg tablet 60 mg PO DAILY 4 Days Qty: 12 0RF fluticasone propionate [Flonase Allergy Relief] 50 mcg/actuation spray,suspension 1 spray intranasal BID Qty: 16 0RF Rx Instructions: administer into each nostril cephalexin 500 mg capsule 500 mg PO BID 7 Days Qty: 14 0RF erythromycin 5 mg/gram (0.5 %) ointment 0.5 inch ophthalmic (eye) BID 7 Days Qty: 3.5 0RF amoxicillin-pot clavulanate [Augmentin] 500-125 mg tablet 1 tab PO BID Qty: 14 0RF ibuprofen 800 mg tablet 800 mg PO Q8H PRN (Reason: pain) Qty: 20 0RF fluconazole 150 mg tablet 150 mg PO Q3D Qty: 2 0RF Rx Instructions: Take 1 dose now. If symptoms do not resolve within 72 hours take the 2nd dose. nitrofurantoin monohyd/m-cryst [Macrobid] 100 mg capsule 100 mg PO BID 5 Days Qty: 10 0RF Rx Instructions: must administer with a meal/food metronidazole 500 mg tablet 500 mg PO BID 7 Days Qty: 14 0RF metoclopramide HCl [Reglan] 10 mg tablet 10 mg PO Q6H PRN (Reason: headache,nausea or vomiting) Qty: 14 0RF Vitamin Plus Low Iron 27 mg iron- 1 mg tablet 1 tab PO BEDTIME Qty: 30 11RF Rx Instructions: give with food (meal/snack) terconazole 0.4 % cream 1 appful vaginal BEDTIME 7 Days Qty: 45 0RF Referrals: Vannesa Dai FNP [Primary Care Provider, Internal Medicine] - 01/18/25 Print Language: Uzbek
--- OUTSIDE RECORDS SUMMARY | 2025-01-14 10:59 | XMS_ITS | Clinical Summary ---
Author Organization [facility] it Address [address] [place] [address] Care Team Providers Care Powder Expert Name Role Phone Unavailable Primary Care Provider [...] Cervical Cancer Screening: P ap Smear 04/23/2012 HPV Vaccines (1 - 3-dose SCD M series) 04/23/2018 Depression Screening 02/22/2024 COVID-19 Vaccine ( - 2024-2 6 season) 2024 Influenza Vaccine (#1) 2024 RSV Immunization Adult Patie nts (1 - 1-dose 75+ series) 04/23/2066 HIB Vaccines Aged Out No longer eligi [...]
--- OUTSIDE RECORDS SUMMARY | 2025-01-14 10:59 | XMS_ITS | Clinical Summary ---
Author Organization [facility] Address [address] [facility] [address] [place] [address] Care Team Providers Care Manager Front Name Role Phone Unavailable Primary Care Provider Unavailabl e Encounters Date Type Department Care Team Description 11/23/2024 Population Health Risk Score [facility] (C3) Department [address] [facility] [address] [place] [id number] Provider, Population Health Generic from Last 3 Months Social History Tobacco [...] 04/23/2021 HPV/Cotest 04/23/2021 COVID-19 Vaccine ( - 2024-2 6 season) 2024 04/27/2021, 12/10/2020 Influenza Vaccine (#1) 2024 10/30/2018 DTaP/Tdap/Td Vaccines (3 - T d or Tdap) 10/30/2031 10/29/2021, 09/16/2017 Zoster Vaccines (1 of 2) 04/23/2041 RSV Patients and Patients Aged 60 years or older (1 - 1-dose 75+ series) 04/23/2066 HIV Screening Completed 06/14/2024 HIB Vaccines Aged Out No longer [...] patient's age to complete this topic [place] [address] [place] [address] C3
[2025-01-14 11:01] LABS: MANUAL DIFF FLAG NO
[2025-01-14 11:09] LABS: Hematocrit 38.5 % (37.0-47.0); Hemoglobin 11.9 g/dl (12.0-16.0); Imm Gran Abs Auto 0.02 X10*3/uL (0.00-0.03); Imm Gran Pct Auto 0.3 % (0.0-0.4); Lymphocytes Absolute Auto 2.2 X10*3/uL (1.2-4.9); Mean Corpuscular HGB Conc 30.9 g/dl (31.0-35.0); Mean Corpuscular Hemoglobin 24.3 pg (27.0-33.0); Mean Corpuscular Volume 78.6 fL (80.0-98.0); NRBC Abs Auto 0.000 X10*3/uL (0.0-0.012); NRBC Pct Auto 0.0 /100WBC (0.0-0.2); Platelet Count 433 X10*3/uL (160-400); Red Blood Count 4.90 X10*6/uL (4.20-5.50); White Blood Count 6.6 X10*3/uL (4.8-10.8)
[2025-01-14 11:18] LABS: Alanine Aminotransferase 18 U/L (0-31); Albumin Level 4.6 g/dL (3.5-5.0); Alkaline Phosphatase 95 U/L (39-117); Anion Gap 15 (12-20); Aspartate Amino Transferase 20 U/L (5-31); Blood Urea Nitrogen 11 mg/dL (9-16); Calcium 9.6 mg/dL (8.4-10.2); Carbon Dioxide 22 mmol/L (22-29); Chloride 104 mmol/L (96-108); Creatinine Clr Calc Pharmacy 149.1; Estimated Glomerular Filt Rate > 60; Potassium 4.1 mmol/L (3.3-5.1); Sodium 137 mmol/L (135-145); Total Protein 7.7 g/dL (6.5-8.0)
[2025-01-14 12:00] VITALS: BP 126/57; PULSE 80; RESP 16; TEMP 36.8; O2SAT 98
== END 2025-01-14 12:00 | disposition home or self-care (01) ==
PROVIDERS: Emergency Provider Emergency Medicine; PCP Registered Nurse
DX: R06.00 Dyspnea, unspecified (principal); R73.9 Hyperglycemia, unspecified; R21 Rash and other nonspecific skin eruption; R35.0 Frequency of micturition
CPT/HCPCS: 36415; 80053; 81001; 81025; 85025; 99282; 99283

== ENCOUNTER 2025-02-13 14:46 | Emergency (ER) | payer MEDICAID, SELFPAY ==
--- NOTE | ~2025-02-13 | XR_ITS ---
EXAMINATION: XR ANKLE, LEFT CLINICAL INFORMATION: pain, fall COMPARISON: None available. TECHNIQUE: AP, lateral, and mortise views of the left ankle. FINDINGS: No visible acute fracture, dislocation or suspicious bony lesion. Alignment is anatomic. Ankle mortise is preserved. No talar dome OCD. Joint spaces are maintained. Mild soft tissue swelling.. XR/XR ankle LT min 3V IMPRESSION: No radiographic evidence of acute osseous findings Electronically signed by: Giancarlo Mcknight MD 02/13/2025 03:33 PM [facility]
[2025-02-13 14:59] VITALS: BP 110/64; PULSE 83; O2SAT 98
[2025-02-13 15:02] VITALS: BMI 28.9
--- NOTE | 2025-02-13 15:13 | ED_ITS ---
HPI - Extremity Injury (Lower) General Chief Complaint: Extremity Injury, Lower Stated Complaint: ANKLE PIN, SWELLING, ROLLED FELT A POP Time Seen by Provider: 02/13/25 15:01 Source: patient and EMS Mode of arrival: EMS Limitations: no limitations History of Present Illness ED Provider: Dr. Jana Lerma HPI Narrative: Patient comes in the emergency room via ambulance complaining of ankle pain. Patient states that today she stepped over a curb and sprain her ankle. Patient states that she heard loud pop. Patient states that she has been trying to put some weight on it but throughout the day become gradually more swollen and more painful. Patient states that she has not taking any pain medications because she does not know she is . Patient denies any other injuries. Related Data Previous Rx's ?Medication ?Instructions ?Recorded ibuprofen 600 mg tablet 600 mg PO Q8H PRN pain #30 t abs 01/30/20 lidocaine 5 % topical patch 1 patch topical DAILY #15 ea 01/30/20 (Lidoderm) ibuprofen 600 mg tablet 600 mg PO Q6H PRN pain #20 t abs 02/03/20 vitamins with calcium 1 tab PO BEDTIME #30 ta bs 03/10/20 no.72-iron 27 mg-folic acid 1 mg tablet ( Vitamins Plus Low Iron) metronidazole 500 mg tablet 500 mg PO BID 7 days #14 t abs 03/21/20 (Flagyl) metronidazole 0.75 % (37.5 mg/5 1 appful vaginal BEDTI ME 5 days 03/25/20 gram) vaginal gel (Metrogel #70 grams Vaginal) prednisone 20 mg tablet 40 mg (2 x 20 mg) PO DAILY 5 days 05/27/20 #10 tabs dgyuoxbmnz-pnkdsqniybtdu-cbnzmydb 1 tab PO Q6H PRN lucita n #20 tabs 06/26/20 50 mg-325 mg-40 mg tablet cyclobenzaprine 10 mg tablet 10 mg PO TID PRN muscle s pasm #14 06/26/20 tabs cephalexin 500 mg capsule 500 mg PO BID 7 days #14 cap s 12/20/20 erythromycin 5 mg/gram (0.5 %) eye 0.5 inch ophthalmic (eye) BID 7 12/20/20 ointment days #3.5 grams terconazole 0.4 % vaginal cream 1 appful vaginal BEDTI ME 7 days 03/10/21 #45 grams cephalexin 500 mg capsule 500 mg PO TID #20 caps 08/07 miconazole nitrate 4 % (200 mg)-2 See Rx Instructions vaginal 11/15/21 % (9 gram)vaginal,prefill .COMPLEX #24 grams appl,cream (Monistat 3) nitrofurantoin 100 mg PO Q12H 7 days #14 ca ps 11/18/21 monohydrate/macrocrystals 100 mg capsule (Macrobid) ibuprofen 800 mg tablet 800 mg PO Q8H PRN pain #30 t abs 02/06/22 prednisone 20 mg tablet 60 mg (3 x 20 mg) PO DAILY 4 days 02/06/22 #12 tabs fluticasone propionate 50 1 spray intranasal BID #16 g deepak 03/10/22 mcg/actuation nasal spray,suspension (Flonase Allergy Relief) fluconazole 150 mg tablet 150 mg PO Q3D 2 doses #2 tab s 01/16/23 nitrofurantoin 100 mg PO BID 5 days #10 cap s 01/16/23 monohydrate/macrocrystals 100 mg capsule (Macrobid) metronidazole 500 mg tablet 500 mg PO BID 7 days #14 t abs 01/19/23 amoxicillin 500 mg-potassium 1 tab PO BID #14 tabs clavulanate 125 mg tablet (Augmentin) ibuprofen 800 mg tablet 800 mg PO Q8H PRN pain #20 t abs 03/13/24 metoclopramide HCl 10 mg tablet 10 mg PO Q6H PRN head ache,nausea 07/26/24 (Reglan) or vomiting #14 tabs clotrimazole-betamethasone 1 1 appl topical BID #15 gr ams 01/14/25 %-0.05 % topical cream acetaminophen 500 mg tablet 500 mg PO Q6H PRN fever or pain 02/13/25 #30 tabs Allergies Allergy/AdvReac Type Severity Reaction Status Date / Time methylphenidate (From Allergy Unknown Swelling Verified 02/13/25 15:03 CONCERTA) nickel (NICKEL) Allergy Unknown HIVES Verified 02/13/25 15:03 latex Allergy Unknown Verified 02/13/25 15:03 ibuprofen AdvReac Rash Verified 02/13/25 15:03 Review of Systems Review of Systems: Constitutional : No Weight loss, No Fever, No Chills, No Night Sweats, No Fatigue, No Malaise ENT/Mouth : No Hearing loss, No Ear Pain, No Nasal Congestion, No Sinus Pain, No Hoarseness, No sore throat, No Rhinorrhea, No Swallowing Difficulty Eyes: No Eye Pain, No Swelling, No Redness, No Foreign Body, No Discharge, No Vision Changes Cardiovascular : No Chest Pain, No SOB, No Dyspnea on Exertion, No Orthopnea, No Edema, No Palpitations Respiratory : No Cough, No Sputum, No Wheezing, No Smoke Exposure, No Dyspnea Gastrointestinal : No Nausea, No Vomiting, No Diarrhea, No Constipation, No abdominal Pain, No Hematochezia, No Melena Genitourinary : no irregular bleeding, No Dysuria, No Urinary Frequency, No Hematuria, No Urinary Incontinence, No Urgency, No Flank Pain, No Urinary Flow Changes, No Hesitancy Musculoskeletal : Complaining of left ankle pain and hearing a loud pop after missing a step on the curve, No Myalgias, No Joint Swelling Skin : No Skin Lesions, No rash Neuro : No Weakness, No Numbness, No Paresthesias, No Loss of Consciousness, No Dizziness, No Headache Psych : No Anxiety/Panic, No Depression, No SI/HI/AH/VH, No Social Issues, Heme/Lymph: No Bruising, No Bleeding,No Lymphadenopathy Endocrine : No Polyuria, No Polydipsia, No Temperature Intolerance [facility] Past Medical History Medical History Asthma delivery delivered Social History Social History Alcohol intake: never Advance Directives: No Advance Directives Information Provided: No Sexual orientation: Straight/Heterosexual Physical Exam Exam: Exam: Appearance: Alert. Oriented X3. No acute distress. Eyes: Pupils equal, round and reactive to light. ENT: Pharynx normal. Neck: Normal inspection. Neck supple. No lymph nodes noted. No crepitus CVS: Normal heart rate and rhythm. Pulses normal. Normal S1 and S2 Respiratory: No respiratory distress. Breath sounds normal. No Wheezing. No rales Abdomen: Soft and nontender. No rigidity. No distention. Skin: Skin warm and dry. Normal skin color. Normal skin turgor. Extremities: Patient's left ankle around the lateral malleolus is a bit swollen, mild ecchymosis. Pain to palpation. Patient is able to flex and extend with very limited range of motion. Good pedal pulses . No Lacerations. No Rash Neuro: Oriented X 3. No motor deficit. No sensory deficit. Moving all extremities. No slurred speech. CN 2 through 12 grossly intact Psych: calm, cooperative, normal affect Vital Signs: Vital Signs: Last Vital Signs Temp 97.3 F 02/13/25 15:20 Pulse 100 02/13/25 15:20 Resp 18 02/13/25 15:20 BP 113/83 02/13/25 15:20 Pulse Ox 98 02/13/25 15:20 O2 Del Method Room Air 02/13/25 15:20 BMI result Body Mass Index 28.9 Medications Administered Discontinued Medications Generic Name Dose Route Start Last Admin Trade Name Freq PRN Reason Stop Dose Admin Acetaminophen 975 mg 02/13/25 15:06 02/13/25 15:20 Acetaminophen 325 Mg Tablet PO 02/13/25 15:07 975 mg ONCE ONE Administration Medical Decision Making Medical Decision Making [facility] Narrative: X-rays of the ankle are negative for fracture. Patient was provided with an [employer] ([employer] air support) and crutches. Patient is blood hCG quant is positive. Patient states that she already has an OBGYN that she can see. 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 Labs: Lab Results 02/13/25 Range/Units 16:35 Beta HCG, Quant 746 mIU/mL Independent Interpretation I performed an independent interpretation of an: Plain X-Ray Radiology Impression Discussion of test interpretation with radiology: I have reviewed the radiologist's reading. Radiologist Impression: No visible acute fracture, dislocation or suspicious bony lesion. Alignment is anatomic. Ankle mortise is preserved. No talar dome OCD. Joint spaces are maintained. Mild soft tissue swelling.. XR/XR ankle LT min 3V IMPRESSION: No radiographic evidence of acute osseous findings Discharge Plan Discharge Clinical Impression: Ankle sprain, Patient Disposition: Home, Self-Care Instructions: (ED), Sprain (ED), P.R.I.C.E. Treatment (ED), Ice Pack Application (ED) Additional Instructions: Please follow-up with your primary care physician tomorrow. If you have any worsening or new symptoms, please return to the emergency room or call 911 Prescriptions: New acetaminophen 500 mg tablet 500 mg PO Q6H PRN (Reason: fever or pain) Qty: 30 0RF No Action metronidazole [Flagyl] 500 mg tablet 500 mg PO BID 7 Days Qty: 14 0RF metronidazole [Metrogel Vaginal] 0.75 % gel 1 appful vaginal BEDTIME 5 Days Qty: 70 0RF lidocaine [Lidoderm] 5 % adhesive patch,medicated 1 patch topical DAILY Qty: 15 0RF Rx Instructions: leave on most painful area for up to 12 hrs ibuprofen 600 mg tablet 600 mg PO Q8H PRN (Reason: pain) Qty: 30 0RF ibuprofen 600 mg tablet 600 mg PO Q6H PRN (Reason: pain) Qty: 20 0RF prednisone 20 mg tablet 40 mg PO DAILY 5 Days Qty: 10 0RF cyclobenzaprine 10 mg tablet 10 mg PO TID PRN (Reason: muscle spasm) Qty: 14 0RF rxplvzolwm-zitqmjgwdpdfz-abkw 50-325-40 mg tablet 1 tab PO Q6H PRN (Reason: pain) Qty: 20 0RF cephalexin 500 mg capsule 500 mg PO TID Qty: 20 0RF miconazole nitrate [Monistat 3] 4 % (200 mg)- 2 % (9 gram) comb pack,prefill appl, cream See Rx Instructions .ROUTE .COMPLEX Qty: 24 0RF Rx Instructions: put 1 supp in vagina at bedtime x 3nites;use cream on area outside vagina 2X/day for up to 7days nitrofurantoin monohyd/m-cryst [Macrobid] 100 mg capsule 100 mg PO Q12H 7 Days Qty: 14 0RF Rx Instructions: must administer with a meal/food ibuprofen 800 mg tablet 800 mg PO Q8H PRN (Reason: pain) Qty: 30 0RF prednisone 20 mg tablet 60 mg PO DAILY 4 Days Qty: 12 0RF fluticasone propionate [Flonase Allergy Relief] 50 mcg/actuation spray,suspens ion 1 spray intranasal BID Qty: 16 0RF Rx Instructions: administer into each nostril cephalexin 500 mg capsule 500 mg PO BID 7 Days Qty: 14 0RF erythromycin 5 mg/gram (0.5 %) ointment 0.5 inch ophthalmic (eye) BID 7 Days Qty: 3.5 0RF amoxicillin-pot clavulanate [Augmentin] 500-125 mg tablet 1 tab PO BID Qty: 14 0RF ibuprofen 800 mg tablet 800 mg PO Q8H PRN (Reason: pain) Qty: 20 0RF clotrimazole-betamethasone 1-0.05 % cream 1 appl topical BID Qty: 15 0RF Rx Instructions: apply rash prn fluconazole 150 mg tablet 150 mg PO Q3D Qty: 2 0RF Rx Instructions: Take 1 dose now. If symptoms do not resolve within 72 hours take the 2nd dose. nitrofurantoin monohyd/m-cryst [Macrobid] 100 mg capsule 100 mg PO BID 5 Days Qty: 10 0RF Rx Instructions: must administer with a meal/food metronidazole 500 mg tablet 500 mg PO BID 7 Days Qty: 14 0RF metoclopramide HCl [Reglan] 10 mg tablet 10 mg PO Q6H PRN (Reason: headache,nausea or vomiting) Qty: 14 0RF Vitamin Plus Low Iron 27 mg iron- 1 mg tablet 1 tab PO BEDTIME Qty: 30 11RF Rx Instructions: give with food (meal/snack) terconazole 0.4 % cream 1 appful vaginal BEDTIME 7 Days Qty: 45 0RF Print Language: Bulgarian
[2025-02-13 15:20] VITALS: BP 113/83; PULSE 100; RESP 18; TEMP 36.3; O2SAT 98
--- OUTSIDE RECORDS SUMMARY | 2025-02-13 15:54 | XMS_ITS | Clinical Summary ---
Author Organization [employer] Address [address] [place] [address] Care Team Providers Care Social Media Content Manager Name Role Phone Unavailable Primary Care Provider Unavailabl e Encounters Date Type Department Care Team Description 11/23/2024 Population Health Risk Score [facility] (C[facility]) Department [address] [facility] [address] [place] [id number] Provider, Population Health Generic from Last 3 [...] patient's age to complete this topic [place] [address] [address] [place] [address] C3
--- OUTSIDE RECORDS SUMMARY | 2025-02-13 15:54 | XMS_ITS | Clinical Summary ---
Author Organization [facility] it Address [address] [place] [address] Care Team Providers Care Assemblies And Installations Inspector Name Role Phone Unavailable Primary Care Provider [...]
--- NOTE | 2025-02-13 16:35 | PC.NURSE ---
mild swelling left ankle. is now fitted w/air caste and crutches.
[2025-02-13 18:08] VITALS: BP 113/83; PULSE 100; RESP 18; TEMP 36.3; O2SAT 98
== END 2025-02-13 18:10 | disposition home or self-care (01) ==
PROVIDERS: Emergency Provider Emergency Medicine
DX: O9A.211 Injury, poisoning and certain other consequences of external causes complicating pregnancy, first trimester (principal); S93.402A Sprain of unspecified ligament of left ankle, initial encounter; Z3A.00 Weeks of gestation of pregnancy not specified; W10.1XXA Fall (on)(from) sidewalk curb, initial encounter; Y93.01 Activity, walking, marching and hiking; Y92.414 Local residential or business street as the place of occurrence of the external cause; Y99.9 Unspecified external cause status
CPT/HCPCS: 36415; 73610; 84702; 99283

== ENCOUNTER → 2025-02-13 15:07 | Outpatient (BNV) | payer MEDICAID, SELFPAY | PROVIDERS: Emergency Provider Emergency Medicine; Visit Provider Radiology Diagnostic Ultrasound | DX: M25.572 Pain in left ankle and joints of left foot (principal) | CPT/HCPCS: 73610 ==